=== PATIENT | male | born 1930 | race Caucasian/White ===

== ENCOUNTER → 2016-12-19 | Outpatient (CLI) | payer OTHER, MEDICARE ==
[~2016-12-19] MED LIST: AGG PO; ASCA500 PO; ASCO500T16 PO; ASPI81TA28 PO; ATOR-26 PO; CALC500C70 PO; CHRO400T PO; CLOP1TAB15 PO; CLTP PO; COEN1CAP46 PO; COEN200C PO; DOCU-94 PO; FINA5TAB PO; FURO-85 PO; IMDSR/30 PO; INSDGI SC; INSU1INJ7 SC; ISOS30TA3 PO; LANS15CA6 PO; LANS30CA12 PO; LEVO25TA5 PO; LIDO5DIS10 TD; LSX20 PO; MECL1TAB42 PO; METO1TAB69 PO; METO50TA16 PO; MULT-1093 PO; NITR0.2D16 TD; NITR0.4S76 PO; NTRGSL/4 UT; NVLGI SC; NVLGI/PEN SC; POTA1TAB94 PO; POTACAP PO; RNXER500 PO; TURM1CAP PO
[2016-12-19 16:52] LABS: BASO % 0.5 %; BASO ABS # 0.04 K/uL (0-0.2); COMPLETE YES; EOS % 7.2 %; HEMATOCRIT 38.8 % (42-52); IG% 0.3 %; LYMPH % 25.2 %; LYMPH ABS # 1.85 K/uL (1.2-3.4); MEAN CELL VOLUME 85.7 fL (80-100); MEAN CORPUSCULAR HEMOGLOBIN 28.9 pg (25-34); MEAN CORPUSCULAR HGB CONC 33.8 g/dl (32-36); MONO % 11.3 %; NEUT % 55.5 %; PLATELET COUNT 206 K/uL (130-400); RED BLOOD COUNT 4.53 M/uL (4.7-6.1); WHITE BLOOD COUNT 7.34 K/uL (4.8-10.8)
[2016-12-19 17:01] LABS: ALT/SGPT 33 U/L (12-78); AST/SGOT 31 U/L (15-37); BLOOD UREA NITROGEN 23 mg/dl (7-18); BUN/CREATININE RATIO 17.9 (10-20); CALCIUM 8.7 mg/dl (8.5-10.1); CARBON DIOXIDE 32 mmol/L (21-32); CHLORIDE 102 mmol/L (98-107); GLUCOSE 152 mg/dl (70-99); MAGNESIUM 2.1 mg/dl (1.8-2.4); POTASSIUM 4.3 mmol/L (3.5-5.1); SODIUM 140 mmol/L (136-145)
[2016-12-19 17:12] LABS: ALKALINE PHOSPHATASE 96 U/L (45-117)
== END | disposition home or self-care (01) ==
LOC: C.LABBC 14:24
PROVIDERS: ATTEND Physician Assistant
DX: R53.83 Other fatigue (principal)

== ENCOUNTER → 2017-02-11 | Outpatient (CLI) | payer OTHER, MEDICARE ==
[~2017-02-11] MED LIST changes: +ACET-1311 PO; +AMOX875T PO; +ASCO500C3 PO; +CALC200T PO; +CARB1SOL9 OT; +COEN1CAP7 PO; +HYDR-5688 PO; +IPRA1AER2 INH; +LANS30TA3 PO; +METO-478 PO; +METO100T44 PO; -METO1TAB69 PO; +MULTCHW PO; +NITR0.1S PO; +NITR0.2D16 TOP; +NITR0.4S74 UT; -NITR0.4S76 PO; +NVLGIPEN SC; +POTA1TAB PO; +PRS5 PO; +QUET1TAB30 PO; +SENN-91 PO
--- NOTE | 2017-02-14 04:03 | POLYSOMNOGRAPH REPORT ---
CLINICAL DATA: An 86-year-old male with BMI of 25.[address] Joseph Felton with a history of fatigue and witnessed apneic episodes at night. On the evening of 02/11/2017, a home sleep apnea test was performed using a [employer] type 3 monitor. RECORDING RESULTS: Total recording time was 10 hours. The patient's estimated sleep time and patient monitoring time was 8 hours. RESPIRATORY DATA: Severe sleep apnea was documented. The RACQUEL was 31.9. There were 20 obstructive, 121 mixed, and 85 central apneic episodes. There were 29 hypopneic episodes. The longest respiratory event was 59 seconds. OXIMETRY DATA: Severe hypoxemia was seen. Oxygen kervin was 76%. Mean saturation was 93%. Time below 89% was 68 minutes. HEART RATE DATA: Heart rates ranged from 57-69 beats per minute. SNORING DATA: Snoring was recorded immediately throughout the night. IMPRESSION: Severe sleep apnea/hypopnea with a respiratory event index of 31.9 with nocturnal hypoxemia. RECOMMENDATIONS: The patient may benefit from a repeat sleep study with CPAP or sleep medicine consultation. Clinical correlation is needed. SABINAD
== END | disposition home or self-care (01) ==
LOC: C.NEUR 09:20
PROVIDERS: ATTEND Internal Medicine
DX: G47.30 Sleep apnea, unspecified (principal); R09.02 Hypoxemia

== ENCOUNTER → 2017-02-18 | Outpatient (CLI) | payer OTHER, MEDICARE | END | disposition home or self-care (01) | LOC: C.LABBC 10:55 | PROVIDERS: ATTEND Internal Medicine | DX: E03.9 Hypothyroidism, unspecified (principal) ==

== ENCOUNTER → 2017-02-25 | Outpatient (CLI) | payer OTHER, MEDICARE ==
[~2017-02-25] VITALS: Ht 170.2 cm; Wt 76.7 kg
[2017-02-25 09:37] VITALS: BP 118/70; PULSE 76; Ht 170.2 cm; Wt 76.7 kg
== END | disposition home or self-care (01) ==
LOC: C.NEUR 08:55
PROVIDERS: ATTEND Internal Medicine Pulmonary Disease
DX: G47.30 Sleep apnea, unspecified (principal)

== ENCOUNTER → 2017-03-06 | Outpatient (CLI) | payer OTHER, MEDICARE ==
[2017-03-06 10:29] LABS: BASO % 0.5 %; BASO ABS # 0.04 K/uL (0-0.2); COMPLETE YES; HEMATOCRIT 38.6 % (42-52); IG% 0.1 %; LYMPH % 18.7 %; LYMPH ABS # 1.44 K/uL (1.2-3.4); MEAN CELL VOLUME 83.2 fL (80-100); MEAN CORPUSCULAR HEMOGLOBIN 27.4 pg (25-34); MEAN CORPUSCULAR HGB CONC 32.9 g/dl (32-36); MEAN PLATELET VOLUME 10.6 fL (7.4-10.4); MONO % 8.8 %; NEUT % 67.9 %; PLATELET COUNT 214 K/uL (130-400); RED BLOOD COUNT 4.64 M/uL (4.7-6.1)
[2017-03-06 14:14] LABS: ALB/GLOB RATIO 0.9 (0.9-2); ALKALINE PHOSPHATASE 100 U/L (45-117); ALT/SGPT 25 U/L (12-78); AST/SGOT 24 U/L (15-37); BLOOD UREA NITROGEN 17 mg/dl (7-18); BUN/CREATININE RATIO 13.9 (10-20); CALCIUM 8.9 mg/dl (8.5-10.1); CARBON DIOXIDE 27 mmol/L (21-32); CHLORIDE 106 mmol/L (98-107); CHOLESTEROL 90 mg/dl (0-200); CHOLESTEROL/HDL RATIO 2.1; GLUCOSE 167 mg/dl (70-99); HDL CHOLESTEROL 42 mg/dl; POTASSIUM 3.9 mmol/L (3.5-5.1); SODIUM 140 mmol/L (136-145)
[2017-03-06 14:16] LABS: LDL CHOLESTEROL CALCULATED 35 mg/dl; TRIGLYCERIDES 65 mg/dl (0-150); VERY LOW DENSITY LIPOPROT CALC 13 mg/dl
== END ==
LOC: C.LABBC 09:05
PROVIDERS: ATTEND Internal Medicine Cardiovascular Disease
DX: I25.10 Atherosclerotic heart disease of native coronary artery without angina pectoris (principal); N18.9 Chronic kidney disease, unspecified; I20.9 Angina pectoris, unspecified; R42 Dizziness and giddiness

== ENCOUNTER 2017-04-24 11:14 | Observation (INO) | payer OTHER, MEDICARE ==
[~2017-04-24] VITALS: Ht 172.7 cm; Wt 77.9 kg
[~2017-04-24 11:14] MED LIST changes: -ACET-1311 PO; -AMOX875T PO; -ASCO500C3 PO; -ASCO500T16 PO; -ASPI81TA28 PO; -CALC200T PO; -CALC500C70 PO; -CARB1SOL9 OT; -COEN1CAP7 PO; -COEN200C PO; -DOCU-94 PO; -FINA5TAB PO; -FURO-85 PO; -HYDR-5688 PO; -IMDSR/30 PO; -INSDGI SC; -IPRA1AER2 INH; -LANS30CA12 PO; -LANS30TA3 PO; -LEVO25TA5 PO; -MECL1TAB42 PO; -METO-478 PO; -METO100T44 PO; -MULT-1093 PO; -MULTCHW PO; -NITR0.1S PO; -NITR0.2D16 TD; -NITR0.2D16 TOP; -NITR0.4S74 UT; -NVLGI/PEN SC; -NVLGIPEN SC; -POTA1TAB PO; -POTACAP PO; -PRS5 PO; -QUET1TAB30 PO; -RNXER500 PO; -SENN-91 PO
[2017-04-24 12:19] LABS: BASO % 0.4 %; BASO ABS # 0.03 K/uL (0-0.2); COMPLETE YES; EOS % 2.2 %; HEMATOCRIT 36.9 % (42-52); IG% 0.3 %; LYMPH % 16.9 %; LYMPH ABS # 1.29 K/uL (1.2-3.4); MEAN CELL VOLUME 82.6 fL (80-100); MEAN CORPUSCULAR HEMOGLOBIN 27.5 pg (25-34); MEAN CORPUSCULAR HGB CONC 33.3 g/dl (32-36); MEAN PLATELET VOLUME 10.2 fL (7.4-10.4); MONO % 8.5 %; NEUT % 71.7 %; PLATELET COUNT 216 K/uL (130-400); RED BLOOD COUNT 4.47 M/uL (4.7-6.1); WHITE BLOOD COUNT 7.65 K/uL (4.8-10.8)
--- NOTE | 2017-04-24 12:21 | DIAGNOSTIC IMAGING REPORT ---
CHEST ONE VIEW PORTABLE HISTORY:86 yearsMaleCHEST PAIN COMPARISON: Chest radiograph 05/15/2016 TECHNIQUE: Portable upright AP view of the chest. FINDINGS: Cardiac silhouette is again mildly enlarged. There is atherosclerosis of the aorta. Prior median sternotomy. There is no pneumothorax or large pleural effusion. Subsegmental reticular opacities of the bilateral lung bases appear unchanged. Mild reticulation throughout the remainder of the lung conteh also appears unchanged. The bones are grossly intact. IMPRESSION: 1. Mild cardiomegaly with unchanged pattern of background mild reticulation, notably within the left greater than right lung bases appears unchanged from February 13, 2016 suggesting chronic interstitial changes with possible superimposed mild pulmonary edema also considered. 2. No new airspace consolidation to suggest pneumonia. The above report was generated using voice recognition software. It may contain grammatical, syntax or spelling errors. Electronically signed by: Walter Ang M.D. 04/24/2017 12:19 PM Dictated Date/Time: 04/24/2017 12:17 PM
[2017-04-24 12:40] LABS: BUN/CREATININE RATIO 12.3 (10-20); CALCIUM 8.9 mg/dl (8.5-10.1); CREATININE 1.3 mg/dl (0.60-1.40)
[2017-04-24 12:45] LABS: CKMB/CK RATIO 1.6 (0-3.0)
[2017-04-24] MEDS ORDERED: FURO-85 PO (13:21)
[2017-04-24] MEDS ORDERED: NVLGI/PEN SC (13:21)
[2017-04-24] MEDS ORDERED: CLOP1TAB15 PO (13:21)
[2017-04-24] MEDS ORDERED: IMDSR/30 PO (13:21)
[2017-04-24] MEDS ORDERED: NITR0.4S76 PO (13:21)
[2017-04-24] MEDS ORDERED: LEVO25TA5 PO (13:21)
[2017-04-24] MEDS ORDERED: ASPI81TA28 PO (13:21)
[2017-04-24] MEDS ORDERED: LANS30CA12 PO (13:21)
[2017-04-24] MEDS ORDERED: POTACAP PO (13:21)
[2017-04-24] MEDS ORDERED: INSDGI SC (13:21)
[2017-04-24] MEDS ORDERED: CHRO400T PO (13:21)
[2017-04-24] MEDS ORDERED: ASCO500T16 PO (13:21)
[2017-04-24] MEDS ORDERED: FINA5TAB PO (13:21)
[2017-04-24] MEDS ORDERED: COEN200C PO (13:21)
[2017-04-24] MEDS ORDERED: MULT-1093 PO (13:21)
[2017-04-24] MEDS ORDERED: METO1TAB69 PO (13:21)
[2017-04-24] MEDS ORDERED: MECL1TAB42 PO (13:21)
[2017-04-24] MEDS ORDERED: DOCU-94 PO (13:21)
[2017-04-24] MEDS ORDERED: ATOR-26 PO (13:21)
[2017-04-24] MEDS ORDERED: CALC500C70 PO (13:21)
[2017-04-24 14:41] VITALS: BP 156/85; PULSE 68; TEMP 36.7; O2SAT 98; Ht 172.7 cm; Wt 77.9 kg
[2017-04-24] MEDS ORDERED: GLUCOSE 10 TABS/TUBE PO PRN (14:45)
[2017-04-24] MEDS ORDERED: DEXTROSE 50% 50 ML SYR IV PRN (14:45)
[2017-04-24] MEDS ORDERED: GLUCOSE 40% GEL 15 GM TUBE PO PRN (14:45)
[2017-04-24] MEDS ORDERED: ALUMINUM/MAGNESIUM/SIMETH (MAALOX MAX) 30 ML UDC PO PRN (14:45)
[2017-04-24] MEDS ORDERED: ACETAMINOPHEN 325 MG TAB PO PRN (14:45)
[2017-04-24] MEDS ORDERED: POLYETHYLENE (MIRALAX) 17 GM PACK PO PRN (14:45)
[2017-04-24] MEDS ORDERED: NITROGLYCERIN 0.4 MG SL PER TAB CHARGE SL PRN (14:45)
[2017-04-24] MEDS ORDERED: ONDANSETRON INJ 2 MG/ML 2 ML VIAL IV PRN (14:45)
[2017-04-24] MEDS ORDERED: MAGNESIUM HYDROXIDE SUSP 30 ML UDC PO PRN (14:45)
--- NOTE | 2017-04-24 14:50 | History and Physical ---
History & Physical Date & Time of Service: Apr 24, 2017 at 14:46 Chief Complaint: Chest Pain Primary Care Physician: Joseph Felton M.D. History of Present Illness Source: patient, family Mr. 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 He reports that he has had progressive anginal CP over the years requiring more frequent use of his nitroglycerin spray. He reports normally his CP comes on with exertion and resolves with 1 spray. Approx. one week ago he did have an episode with exertion that did not jr until 3 sprays of NTG. Last night his CP changed as it came on with rest and is located in the L chest, which he describes as tight in nature. He took 3-4 sprays of NTG last night and didn't take the pain completely away but did resolve in approx.1 hour. He states he feels more fatigued with this episode than he normally dose with his previous anginal symptoms. Currently he states he is CP free and he denies having any CP this morning and came in for evaluation of the symptoms from last night. During this CP he had associated SOB, throat pain, and teeth sensitivity on the R side. He was at his PCP office yesterday and reports consideration for nighttime O2 use for obstructive and central sleep apnea since he cannot tolerate CPAP but this has not been instituted. Patient does complain of chronic lightheadedness/ dizziness which is unchanged. He denies fever/chills, current CP, current SOB, abdominal pain, N/V, diaphoresis, dysuria, constipation/diarrhea, melena/ hematochezia. Past Medical/Surgical History Medical Problems: (1) Diabetes Status: Chronic (2) Heart disease Status: Chronic (3) Hypertension Status: Chronic Surgical Problems: (1) History of back surgery Status: Resolved (2) History of open heart surgery Status: Resolved Family History Diabetes mellitus Heart disease Hypertension Social History Smoking Status: Former Smoker Smokeless Tobacco Use: No Alcohol Use: none Drug Use: none Marital Status: Housing status: lives with significant other Occupational Status: retired Immunizations History of Tetanus Vaccine?: Unknown History of Pneumococcal: Yes History of Hepatitis B Vaccine: No Multi-Drug Resistant Organisms History of MDRO: No Allergies Coded Allergies: Iodine (Verified Allergy, Mild, 04/24/17) Iodinated Diagnostic Agents (Verified Allergy, Unknown, UNKNOWN, 04/24/17) Home Medications Scheduled Ascorbic Acid (Ascorbic Acid), 500 MG PO QAM Aspirin (Aspirin Ec), 81 MG PO HS Atorvastatin (Lipitor), 80 MG PO HS Calcium/Vitamin D (Os-Bethel 500 Plus D), 1 TAB PO BID Chromium Picolinate (Chromium Picolinate), 1 TAB PO QAM Clopidogrel (Plavix), 75 MG PO QAM Coenzyme Q10 (Ubidecarenone) (Coenzyme Q-10), 1 TAB PO QAM Docusate Sodium (Colace), 1 CAP PO HS Finasteride (Proscar), 5 MG PO HS Furosemide (Lasix), 20 MG PO QAM Insulin Glargine (Lantus), 18-25 UNITS SC HS Isosorbide Mononitrate (Isosorbide Mononitrate ER), 1 TAB PO QAM Lansoprazole (Prevacid), 30 MG PO QAM Levothyroxine Sodium (Levothyroxine Sodium), 1 TAB PO HS Meclizine Hcl (Meclizine Hcl), 1 TAB PO TID Metoprolol Succ (Toprol Xl) (Toprol-Xl ), 100 MG PO BID Multiple Vitamins W/ Minerals (Centrum Silver 50+Men), 1 TAB PO QAM Potassium Gluconate (K-99), 1 TAB PO QAM Miscellaneous Medications Insulin Aspart (Novolog Flexpen), 1 DOSE SC Nitroglycerin (Nitroglycerin Lingual), 1 SPRAY PO Review of Systems Constitutional: + fatigue, No fever, No chills Eyes: No worsening of vision ENT: No nasal symptoms, No sore throat, No trouble swallowing Respiratory: + shortness of breath (last night - resolved), No cough Cardiovascular: + chest pain (last night - currently resolved), No palpitations Abdomen: No pain, No nausea, No vomiting, No diarrhea, No constipation Genitourinary - Male: + urinary frequency, No dysuria Hematologic / Lymphatic: No abnormal bleeding/bruising, No clotting problems Physical Exam Vital Signs Date Time Temp Pulse Resp B/P (MAP) Pulse Ox O2 Delivery O2 Flow Rate FiO2 04/24/17 12:38 65 20 139/78 97 Nasal Cannula 2.0 04/24/17 12:24 Nasal Cannula 2.0 04/24/17 11:31 63 04/24/17 11:16 36.7 79 16 148/86 96 Room Air General Appearance: WD/WN, no apparent distress Head: normocephalic, atraumatic Eyes: sclerae normal ENT: hearing grossly normal Neck: supple, no JVD, trachea midline Respiratory/Chest: no respiratory distress, no accessory muscle use, + crackles (minimal in bases bilat) Cardiovascular: regular rate, rhythm, no gallop, + systolic murmur Abdomen/GI: normal bowel sounds, non tender, soft Back: no CVA tenderness, no muscle spasm, + pertinent finding (L back surgical incision well-healed and well-approximated) Extremities/Musculoskelatal: no calf tenderness, no pedal edema Neurologic/Psych: alert Skin: normal color, warm/dry Diagnostics Laboratory Results Results Past 24 Hours Test 04/24/17 11:40 04/24/17 11:49 Range/Units White Blood Count 7.65 4.8-10.8 K/uL Red Blood Count 4.47 4.7-6.1 M/uL Hemoglobin 12.3 14.0-18.0 g/dL Hematocrit 36.9 42-52 % Mean Corpuscular Volume 82.6 80-100 fL Mean Corpuscular Hemoglobin 27.5 25-34 pg Mean Corpuscular Hemoglobin Concent 33.3 32-36 g/dl Platelet Count 216 130-400 K/uL Mean Platelet Volume 10.2 7.4-10.4 fL Neutrophils (%) (Auto) 71.7 % Lymphocytes (%) (Auto) 16.9 % Monocytes (%) (Auto) 8.5 % Eosinophils (%) (Auto) 2.2 % Basophils (%) (Auto) 0.4 % Neutrophils # (Auto) 5.49 1.4-6.5 K/uL Lymphocytes # (Auto) 1.29 1.2-3.4 K/uL Monocytes # (Auto) 0.65 0.11-0.59 K/uL Eosinophils # (Auto) 0.17 0-0.5 K/uL Basophils # (Auto) 0.03 0-0.2 K/uL RDW Standard Deviation 46.9 36.4-46.3 fL RDW Coefficient of Variation 15.5 11.5-14.5 % Immature Granulocyte % (Auto) 0.3 % Immature Granulocyte # (Auto) 0.02 0.00-0.02 K/uL Sodium Level 135 136-145 mmol/L Potassium Level 4.0 3.5-5.1 mmol/L Chloride Level 101 98-107 mmol/L Carbon Dioxide Level 25 21-32 mmol/L Anion Gap 9.0 3-11 mmol/L Blood Urea Nitrogen 16 7-18 mg/dl Creatinine 1.30 0.60-1.40 mg/dl Est Creatinine Clear Calc Drug Dose 38.0 ml/min Estimated GFR () 56.5 Estimated GFR (Non- 48.7 BUN/Creatinine Ratio 12.3 10-20 Random Glucose 178 70-99 mg/dl Calcium Level 8.9 8.5-10.1 mg/dl Total Bilirubin 0.6 0.2-1 mg/dl Direct Bilirubin 0.2 0-0.2 mg/dl Aspartate Amino Transf (AST/SGOT) 31 15-37 U/L Alanine Aminotransferase (ALT/SGPT) 30 12-78 U/L Alkaline Phosphatase 99 45-117 U/L Total Creatine Kinase 195 39-308 U/L Creatine Kinase MB 3.1 0.5-3.6 ng/ml Creatine Kinase MB Ratio 1.6 0-3.0 Total Protein 7.0 6.4-8.2 gm/dl Albumin 3.3 3.4-5.0 gm/dl Lipase 96 73-393 U/L Bedside Troponin I 0.030 0-0.045 ng/ml Diagnostic Radiology CHEST ONE VIEW PORTABLE FINDINGS: Cardiac silhouette is again mildly enlarged. There is atherosclerosis of the aorta. Prior median sternotomy. There is no pneumothorax or large pleural effusion. Subsegmental reticular opacities of the bilateral lung bases appear unchanged. Mild reticulation throughout the remainder of the lung conteh also appears unchanged. The bones are grossly intact. IMPRESSION: 1. Mild cardiomegaly with unchanged pattern of background mild reticulation, notably within the left greater than right lung bases appears unchanged from February 13, 2016 suggesting chronic interstitial changes with possible superimposed mild pulmonary edema also considered. 2. No new airspace consolidation to suggest pneumonia. EKG Sinus rhythm with 1st degree A-V block Left axis deviation Left ventricular hypertrophy with QRS widening and repolarization abnormality Lateral infarct (cited on or before 05-OCT-2004) Inferior infarct (cited on or before 05-OCT-2004) Abnormal ECG When compared with ECG of 15-MAY-2016 11:18, T wave amplitude has increased in Anterior leads Impression Assessment and Plan Mr. 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 Unstable Angina with CAD with KS S/P CABG x 5 and Stents: - Significant CAD with multiple interventions at [facility] - Initial trop detectable but negative and will obtain serial enzymes - ASA 81 mg daily and Plavix 75 mg daily - Hold Imdur and use topical NTG - Metoprolol 100 mg BID - Consult cardiology - appreciate recommendations for intervention...stress testing vs cath? Chronic Systolic and Diastolic CHF without Exacerbation: - Echo (2016) - EF 40% with diastolic dysfunction; global hypokinesis; borderline dilated L ventricle - Lasix 20 mg daily Obstructive and Central Sleep Apnea: - Evaluated by PCP yesterday and patient cannot stand CPAP and is considering nocturnal O2 - hasn't been set up yet IDDM: A1c 7.7 - Follows with Dr. Guzman - Lantus 16 units and SSI Hypothyroidism: - Levothyroxine 25 mcg CVA x 2 - tPA given in 2016: - ASA and Plavix as above DVT Prophylaxis: OMAIRA/SCDs Code Status: FULL RESUSCITATION Resident Physician Supervision Note: I was present with Fe PERES during the history and exam. I discussed the case with the PA and agree with the findings and plan as documented in the note. Any exceptions or clarifications are listed here: 86 y/o M with documented severe CAD presenting essentially with unstable angina - has had increasingly frequent CP which has not fully responded to NTG OE AAO x 3 S1,2 R + systolic murmur Crackles R lung base NT, ND, BS+ No CCE P: Placed on telemetry Pt has had extensive w/u and CAD is well documented - utility of additional testing is not clear so that we will consult cardiology for additional recommendations - May benefit from Ranexa Placed on SS for DM CHF - mild systolic - euvolemic on admission - cont Lasix Cont Synthroid Documented By: Gideon Neumann Level of Care Telemetry Resuscitation Status FULL RESUSCITATION VTE Prophylaxis VTE Risk Assessment Done? Y/N: Yes Risk Level: Moderate Given or contraindicated: T.E.D. Stockings, SCD's
--- NOTE | 2017-04-24 15:12 | EMERGENCY ROOM VISIT NOTE ---
History Report prepared by Carlos Enrique: Bandar Guerrero Under the Supervision of: Dr. Justice Ramirez M.D. First contact with patient: 11:37 Chief Complaint: CHEST PAIN Stated Complaint: CHEST PAIN Nursing Triage Summary: pt to the ED with chest pain last night took 4 sprays of nitro which relieved it and then decided to come in today no complaints of chest pain now History of Present Illness The patient is a 86 year old male who presents to the Emergency Room with complaints of intermittent chest pain beginning last night. He states that his pain resolved with 3-4 sprays of nitroglycerin last night, but then returned this morning. This is the first time he has required more than 1 spray of nitroglycerin to improve his pain. The patient states that he waited to come to the ED because he wanted to sleep first. He states that his chest still feels "tight" with deep breathing. He states that he does not currently feel short of breath, but states that he did previously. The patient has a history of TX, and states that his current pain feels similar to his previous TX. He has a history of multiple cardiac bypasses. He states that he has been using nitroglycerin more frequently with time. Pt denies LOC, headache, fevers, chills, diaphoresis , visual changes, neck pain, tearing pain radiating to the back, personal history or family history of aneurysm or pulmonary embolism, uncontrolled hypertension, leg swelling, coagulation abnormalities, prolonged travel, recent surgery or immobilization, nausea, vomiting, abdominal pain, melena, hematochezia, urinary symptoms, numbness, weakness, lymphadenopathy, rash, or other complaints. Source of History: patient Onset: Last night Position: chest Timing: intermittent Modifying Factors (Worsening): breathing (deep) Modifying Factors (Relieving): other (Nitroglycerin) Associated Symptoms: + SOB (resolved) Review of Systems See HPI for pertinent positives and negatives. A total of ten systems were reviewed and were otherwise negative. 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 Surgical Problems: (1) History of back surgery (2) History of open heart surgery Family History Diabetes mellitus Heart disease Hypertension Social History Smoking Status: Former Smoker Drug Use: none Marital Status: Housing Status: lives with significant other Occupation Status: retired Current/Historical Medications Scheduled Ascorbic Acid (Ascorbic Acid), 500 MG PO QAM Aspirin (Aspirin Ec), 81 MG PO HS Atorvastatin (Lipitor), 80 MG PO HS Calcium/Vitamin D (Os-Bethel 500 Plus D), 1 TAB PO BID Chromium Picolinate (Chromium Picolinate), 1 TAB PO QAM Clopidogrel (Plavix), 75 MG PO QAM Coenzyme Q10 (Ubidecarenone) (Coenzyme Q-10), 1 TAB PO QAM Docusate Sodium (Colace), 1 CAP PO HS Finasteride (Proscar), 5 MG PO HS Furosemide (Lasix), 20 MG PO QAM Insulin Glargine (Lantus), 18-25 UNITS SC HS Isosorbide Mononitrate (Isosorbide Mononitrate ER), 1 TAB PO QAM Lansoprazole (Prevacid), 30 MG PO QAM Levothyroxine Sodium (Levothyroxine Sodium), 1 TAB PO HS Meclizine Hcl (Meclizine Hcl), 1 TAB PO TID Metoprolol Succ (Toprol Xl) (Toprol-Xl ), 100 MG PO BID Multiple Vitamins W/ Minerals (Centrum Silver 50+Men), 1 TAB PO QAM Potassium Gluconate (K-99), 1 TAB PO QAM Miscellaneous Medications Insulin Aspart (Novolog Flexpen), 1 DOSE SC Nitroglycerin (Nitroglycerin Lingual), 1 SPRAY PO Allergies Coded Allergies: Iodine (Verified Allergy, Mild, 04/24/17) Iodinated Diagnostic Agents (Verified Allergy, Unknown, UNKNOWN, 04/24/17) Physical Exam Vital Signs Date Time Temp Pulse Resp B/P (MAP) Pulse Ox O2 Delivery O2 Flow Rate FiO2 04/24/17 14:41 36.7 68 20 156/85 98 Nasal Cannula 2.0 04/24/17 14:40 69 20 156/85 98 04/24/17 12:38 65 20 139/78 97 Nasal Cannula 2.0 04/24/17 12:24 Nasal Cannula 2.0 04/24/17 11:31 63 04/24/17 11:16 36.7 79 16 148/86 96 Room Air Physical Exam GENERAL: Awake, alert, well-appearing, in no distress HENT: Normocephalic, atraumatic. Oropharynx unremarkable. EYES: Normal conjunctiva. Sclera non-icteric. NECK: Supple. No nuchal rigidity. FROM. No JVD. RESPIRATORY: Clear to auscultation. CARDIAC: Regular rate, normal rhythm. Extremities warm and well perfused. Pulses equal. ABDOMEN: Soft, non-distended. No tenderness to palpation. No rebound or guarding. No masses. RECTAL: Deferred. MUSCULOSKELETAL: Chest examination reveals no tenderness. The back is symmetrical on inspection without obvious abnormality. There is no CVA tenderness to palpation. No joint edema. LOWER EXTREMITIES: Calves are equal size bilaterally and non-tender. No edema. No discoloration. NEURO: Normal sensorium. No sensory or motor deficits noted. SKIN: No rash or jaundice noted. Medical Decision & Procedures ER Provider Diagnostic Interpretation: X-ray: Per my interpretation, radiologist review. CHEST ONE VIEW PORTABLE FINDINGS: Cardiac silhouette is again mildly enlarged. There is atherosclerosis of the aorta. Prior median sternotomy. There is no pneumothorax or large pleural effusion. Subsegmental reticular opacities of the bilateral lung bases appear unchanged. Mild reticulation throughout the remainder of the lung conteh also appears unchanged. The bones are grossly intact. IMPRESSION: 1. Mild cardiomegaly with unchanged pattern of background mild reticulation, notably within the left greater than right lung bases appears unchanged from February 13, 2016 suggesting chronic interstitial changes with possible superimposed mild pulmonary edema also considered. 2. No new airspace consolidation to suggest pneumonia. The above report was generated using voice recognition software. It may contain grammatical, syntax or spelling errors. Electronically signed by: Walter Ang M.D. 04/24/2017 12:19 PM Laboratory Results 04/24/17 11:40 Red Blood Count 4.47, Mean Corpuscular Volume 82.6, Mean Corpuscular Hemoglobin 27.5, Mean Corpuscular Hemoglobin Concent 33.3, Mean Platelet Volume 10.2, Neutrophils (%) (Auto) 71.7, Lymphocytes (%) (Auto) 16.9, Monocytes (%) (Auto) 8.5, Eosinophils (%) (Auto) 2.2, Basophils (%) (Auto) 0.4, Neutrophils # (Auto) 5.49, Lymphocytes # (Auto) 1.29, Monocytes # (Auto) 0.65, Eosinophils # (Auto) 0.17, Basophils # (Auto) 0.03 04/24/17 11:40 Test 04/24/17 11:40 04/24/17 11:49 White Blood Count 7.65 K/uL (4.8-10.8) Red Blood Count 4.47 M/uL (4.7-6.1) Hemoglobin 12.3 g/dL (14.0-18.0) Hematocrit 36.9 % (42-52) Mean Corpuscular Volume 82.6 fL (80-100) Mean Corpuscular Hemoglobin 27.5 pg (25-34) Mean Corpuscular Hemoglobin Concent 33.3 g/dl (32-36) Platelet Count 216 K/uL (130-400) Mean Platelet Volume 10.2 fL (7.4-10.4) Neutrophils (%) (Auto) 71.7 % Lymphocytes (%) (Auto) 16.9 % Monocytes (%) (Auto) 8.5 % Eosinophils (%) (Auto) 2.2 % Basophils (%) (Auto) 0.4 % Neutrophils # (Auto) 5.49 K/uL (1.4-6.5) Lymphocytes # (Auto) 1.29 K/uL (1.2-3.4) Monocytes # (Auto) 0.65 K/uL (0.11-0.59) Eosinophils # (Auto) 0.17 K/uL (0-0.5) Basophils # (Auto) 0.03 K/uL (0-0.2) RDW Standard Deviation 46.9 fL (36.4-46.3) RDW Coefficient of Variation 15.5 % (11.5-14.5) Immature Granulocyte % (Auto) 0.3 % Immature Granulocyte # (Auto) 0.02 K/uL (0.00-0.02) Anion Gap 9.0 mmol/L (3-11) Est Creatinine Clear Calc Drug Dose 38.0 ml/min Estimated GFR () 56.5 Estimated GFR (Non- 48.7 BUN/Creatinine Ratio 12.3 (10-20) Calcium Level 8.9 mg/dl (8.5-10.1) Total Bilirubin 0.6 mg/dl (0.2-1) Direct Bilirubin 0.2 mg/dl (0-0.2) Aspartate Amino Transf (AST/SGOT) 31 U/L (15-37) Alanine Aminotransferase (ALT/SGPT) 30 U/L (12-78) Alkaline Phosphatase 99 U/L (45-117) Total Creatine Kinase 195 U/L (39-308) Creatine Kinase MB 3.1 ng/ml (0.5-3.6) Creatine Kinase MB Ratio 1.6 (0-3.0) Total Protein 7.0 gm/dl (6.4-8.2) Albumin 3.3 gm/dl (3.4-5.0) Lipase 96 U/L (73-393) Bedside Troponin I 0.030 ng/ml (0-0.045) Laboratory results reviewed by me ECG Indication: chest pain Rate (beats per minute): 76 Rhythm: sinus rhythm Findings: 1st degree AV block, Q waves (inferior and lateral leads), other ( LAD. LVH with repolarization) Comparison ECG Date: May 15, 2016 Change: no significant change ED Course 1207: The patient was evaluated in room B9. A complete history and physical exam was performed. Medical Decision Triage Nursing notes reviewed. The patient's presentation and history were concerning for chest pain. Etiologies such as cardiac ischemia, aortic dissection, pulmonary embolism, pneumonia, pneumothorax, musculoskeletal, infections, gastrointestinal, as well as others were entertained. The patient was evaluated. He was pain-free. His CBC showed a mild anemia. Chemistry panel, troponin, LFTs, lipase were unremarkable. Chest x-ray revealed chronic changes. The patient was doing relatively well. He has had an escalating use of his nitroglycerin. I discussed the case with Dr. Parra of cardiology and he recommended a cardiac rule out. I did consult with the hospitalist service. The patient was evaluated in the Emergency Room for further management. Consults Time Called: [id number] Consulting Physician: Dr. Parra -Cardiology Returned Call: [phone] Discussed the patient's case. Dr. Parra recommends that the patient be admitted for further evaluation. Additional Consults: Time Called: 1350 Consulted Physician: Dr. Neumann -[facility] [place] Returned Call: [phone] Additional Comments: Discussed the patient's case. The patient will be evaluated for further treatment and disposition. Impression Primary Impression: Substernal chest pain Scribe Attestation The scribe's documentation has been prepared under my direction and personally reviewed by me in its entirety. I confirm that the note above accurately reflects all work, treatment, procedures, and medical decision making performed by me. Departure Information Dispostion Being Evaluated By Hospitalist Referrals Joseph Felton M.D. (PCP) Patient Instructions My [facility]
[2017-04-24] MEDS ORDERED: IV FLUIDS COMPLETED PRN (15:15)
[2017-04-24 16:13] VITALS: BP 146/85; PULSE 69; TEMP 36.8; O2SAT 96
[2017-04-24] MEDS: INSULIN ASPART 100 UNITS/ML 3 ML PEN SC SCH ×3 (16:15→21:39)
[2017-04-24] MEDS: NITROGLYCERIN OINT 2% 1GM PACKET EXT SCH ×2 (18:21→22:50)
[2017-04-24] MEDS ORDERED: NON-FORMULARY MEDICATION SCH (19:15)
--- NOTE | 2017-04-24 19:31 | Cardiology Consultation ---
Cardiology Consultation Date of Consultation: Apr 24, 2017. Requesting Physician: Dr. Neumann Attending Physician: Dr. Neumann Reason for Consultation: Unstable angina Pt evaluation today including: conversation w/ patient, physical exam, chart review, lab review, review of studies, review of inpatient medication list History of Present Illness Mr. Pabon is a pleasant 86-year-old gentleman with a history significant for CAD s/p CABG x5 in 1997 with repeat bypass in 1995, non severe aortic stenosis, chronic angina, stroke, chronic kidney disease, ischemic cardiomyopathy, sleep apnea, dyslipidemia, hypertension, and type 2 diabetes. He presented to the emergency department today with worsening chest discomfort/ angina. He typically follows with Dr. Gupta for his cardiology care. He has had chronic stable anginal symptoms and typically takes nitroglycerin spray prior to exerting himself. For the past few months he has had progressively worsening and more frequent symptoms. He describes the pain as a right or left-sided, and sometimes bilateral chest discomfort, described as a tightness. It typically does not radiate. It occurs with exertion and usually resolves with nitroglycerin. It has been taking more sprays of nitroglycerin for his symptoms to completely resolved. Last night he took 3 or 4 sprays and the pain did not completely resolve until approximately 1 hour later. He has even had some symptoms at rest recently with symptoms lasting 30-60 minutes. He has not had any further symptoms today with his last episode being last evening at approximately 2300 p.m. there is no radiation of the pain and no diaphoresis. He initially denied shortness of breath with the symptoms but then stated that his breathing did become a bit more difficult with his chest discomfort. He states that these symptoms are typical for his angina. He otherwise denies melena, hematochezia, syncope, near-syncope, palpitations, orthopnea, shortness of breath at rest, or other bleeding. He denies any recent fevers, chills, nausea, vomiting. He takes isosorbide mononitrate 30 mg [address] to [address] Gupta's most recent note, he did not tolerate higher doses of isosorbide. He also did not tie low rate higher doses of amlodipine due to increased lightheadedness. He was intolerant to Ranexa due to increased fatigue and he also did not tolerate higher doses of metoprolol due to fatigue. He has had the following studies/procedures: 1. CABG x5 1997: HOLDER to LAD; SVG to RCA; SVG to circumflex; SVG to LAD diagonal/diagonal bridge graft. 2. Redo CABG 1995: SVG from left subclavian to distal and of prior graft to circumflex marginal. 3. Cardiac catheterization 2006 at [facility]: Patent vein graft to OM2. Patent HOLDER to mid LAD. LM CA 90%. Mid LAD 100%. Distal LAD 70%. D1 60%. Proximal RCA 100%. Collateral flow from LAD to RCA. Proximal circumflex 70%. OM2 and OM3 100%. PCI was performed from a LM CA to ostial left circumflex. 4. Echo 03/19/2016: EF 40%. Inferior and inferoseptal akinesis. Basal anteroseptal hypokinesis. Mild MR. Mild aortic stenosis. Review of systems: As above. Review of systems otherwise negative/ unremarkable. Past Medical/Surgical History 1. Actinic keratosis (L57.0) 2. Alteration in tactile sense (R20.9) 3. Angina pectoris (I20.9) 4. Apnea (R06.81) 5. Arteriosclerotic coronary artery disease (I25.10) 6. Benign prostatic hypertrophy (N40.0) 7. History of CABG 8. Calcific aortic stenosis (I35.0) 9. Cardiomyopathy (I42.9) 10. Cath Stent Placement 11. Cerebral infarction, unspecified (I63.9) 12. Cervical facet syndrome (M12.88) 13. Cervical pain (neck) (M54.2) 14. Chronic back pain (M54.9,G89.29) 15. Chronic kidney disease (N18.9) 16. Chronic pain syndrome (G89.4) 17. Degeneration of intervertebral disc 18. Diabetic nephropathy (E11.21) 19. Diabetic peripheral neuropathy (E11.42) 20. Dizziness (R42) 21. Dyslipidemia (E78.5) 22. Enlarged prostate with lower urinary tract symptoms (LUTS) (N40.1) 23. Esophageal reflux (K21.9) 24. Fatigue (R53.83) 25. Gait disturbance (R26.9) 26. Headache (R51) 27. History of basal cell carcinoma (Z85.828) 28. Hypertension (I10) 29. Hypothyroidism (E03.9) 30. Inhibited sexual excitement (F52.8) 31. Memory loss or impairment (R41.3) 32. Neoplasm of uncertain behavior of skin (D48.5) 33. Past myocardial infarction (I25.2) 34. Severe sleep apnea (G47.30) 35. Type 2 diabetes mellitus with neurologic complication, with long-term current use of insulin (E11.49,Z79.4) Surgical History 1. History of CABG 2. History of Cataract Surgery 3. History of Cath Stent Placement 4. Cath Stent Placement 5. History of Chemosurgery (Mohs Micrographic Technique) 6. History of Complete Colonoscopy 7. History of Hemorrhoidectomy 8. History of Inguinal Hernia Repair 9. History of Laminectomy Lumbar 10. History of Pilonidal Cyst Resection 11. History of Tonsillectomy With Adenoidectomy Family History Diabetes mellitus Heart disease Hypertension Social History Smoking Status: Former Smoker History of Alcohol Use: No Quit smoking many years ago. Rare alcohol. and lives with his . Two children. Currently alone in his hospital room. All Other Systems: Reviewed and Negative Allergies Coded Allergies: Iodine (Verified Allergy, Mild, 04/24/17) Iodinated Diagnostic Agents (Verified Allergy, Unknown, UNKNOWN, 04/24/17) Medications Current Inpatient Medications Medications (Trade) Dose Ordered Sig/Zachariah Route Start Time Stop Time Status Last Admin Dose Admin Acetaminophen (Tylenol Tab) 650 mg Q4H PRN PO 04/24/17 14:45 05/24/17 14:44 Al Hydrox/Mg Hydrox/Simethicone (Maalox Max Susp) 15 ml Q4H PRN PO 04/24/17 14:45 05/24/17 14:44 Magnesium Hydroxide (Milk Of Magnesia Susp) 30 ml Q12H PRN PO 04/24/17 14:45 05/24/17 14:44 Ondansetron HCl (Zofran Inj) 4 mg Q6H PRN IV 04/24/17 14:45 05/24/17 14:44 Nitroglycerin (Nitrostat Tab) 0.4 mg UD PRN SL 04/24/17 14:45 05/24/17 14:44 Polyethylene (Miralax Powder Packet) 17 gm DAILY PRN PO 04/24/17 14:45 05/24/17 14:44 Ascorbic Acid (Vitamin C Tab) 500 mg QAM PO 04/25/17 09:00 05/25/17 08:59 Aspirin (Ecotrin Tab) 81 mg HS PO 04/24/17 21:00 05/24/17 20:59 Atorvastatin Calcium (Lipitor Tab) 80 mg HS PO 04/24/17 21:00 05/24/17 20:59 Calcium/Vitamin D (Caltrate Plus Tab) 1 tab BID PO 04/24/17 21:00 05/24/17 20:59 Clopidogrel Bisulfate (plAVix TAB) 75 mg QAM PO 04/25/17 09:00 05/25/17 08:59 Docusate Sodium (coLACE CAP) 100 mg HS PO 04/24/17 21:00 05/24/17 20:59 Finasteride (Proscar Tab) 5 mg HS PO 04/24/17 21:00 05/24/17 20:59 Furosemide (Lasix Tab) 20 mg QAM PO 04/25/17 09:00 05/25/17 08:59 Insulin Glargine (Lantus Solostar Pen) 16 units HS SC 04/24/17 21:00 05/24/17 20:59 Levothyroxine Sodium (Synthroid Tab) 25 mcg HS PO 04/24/17 21:00 05/24/17 20:59 Meclizine HCl (Antivert Tab) 25 mg TID PO 04/24/17 21:00 05/24/17 20:59 Metoprolol Succinate (Toprol Xl Tab) 100 mg BID PO 04/24/17 21:00 05/24/17 20:59 Multivitamins/ Minerals (Multivitamin W/ Minerals Tab) 1 tab QAM PO 04/25/17 09:00 05/25/17 08:59 Pantoprazole Sodium (Protonix Tab) 40 mg QAM PO 04/25/17 09:00 05/25/17 08:59 Insulin Aspart (novoLOG ASPART) SLIDING SCALE If C... ACHS SC 04/24/17 16:15 05/24/17 16:14 Glucose (Glucose 40% Gel) 15-30 GRAMS 15 GRAMS... UD PRN PO 04/24/17 14:45 05/24/17 14:44 Glucose (Glucose Chew Tab) 4-8 Tablets 4 Tabl... UD PRN PO 04/24/17 14:45 05/24/17 14:44 Dextrose (Dextrose 50% 50ML Syringe) 25-50ML OF 50% DW IV FOR... UD PRN IV 04/24/17 14:45 05/24/17 14:44 Miscellaneous (Iv Fluids Completed) 1 ea PRN PRN N/A 04/24/17 15:15 04/24/18 15:14 Nitroglycerin (Nitroglycerin 2% Oint) 1 inch Q6H EXT 04/24/17 16:30 05/24/17 16:29 04/24/17 18:21 1 INCH Non-Formulary Medication 1 ea UD N/A 04/24/17 19:15 05/24/17 19:14 UNV Physical Exam Vital Signs Past 12 Hours Date Time Temp Pulse Resp B/P (MAP) Pulse Ox O2 Delivery O2 Flow Rate FiO2 04/24/17 16:13 36.8 69 20 146/85 (105) 96 Room Air 04/24/17 16:13 96 Room Air 04/24/17 15:28 69 18 150/84 98 Nasal Cannula 2.0 04/24/17 14:41 36.7 68 20 156/85 98 Nasal Cannula 2.0 04/24/17 14:40 69 20 156/85 98 04/24/17 12:38 65 20 139/78 97 Nasal Cannula 2.0 04/24/17 12:24 Nasal Cannula 2.0 04/24/17 11:31 63 04/24/17 11:16 36.7 79 16 148/86 96 Room Air Gen.: No acute distress. Alert and oriented. HEENT: Anicteric sclera. Neck: No JVD. No bruits. Normal carotid upstrokes bilaterally. Cardiac: PMI was not palpable. No ventricular heave. Regular rate and rhythm. Normal S1-S2. 2/6 early peaking systolic ejection murmur heard best at right upper sternal border. No rubs or gallops. Pulmonary: Bibasilar crackles, otherwise clear. Abdomen: Soft, nontender, nondistended, with normoactive bowel sounds. No bruits noted. Extremities: 2+ radial pulses bilaterally. 2+ posterior tibialis pulses bilaterally. No edema or cyanosis. Psychiatric: Affect appears appropriate. Chest: Chest pain noted in HPI is not reproducible on exam. Data Laboratory Results: Last 24 Hours Test 04/24/17 11:40 04/24/17 11:49 04/24/17 16:16 04/24/17 17:40 White Blood Count 7.65 K/uL Red Blood Count 4.47 M/uL Hemoglobin 12.3 g/dL Hematocrit 36.9 % Mean Corpuscular Volume 82.6 fL Mean Corpuscular Hemoglobin 27.5 pg Mean Corpuscular Hemoglobin Concent 33.3 g/dl Platelet Count 216 K/uL Mean Platelet Volume 10.2 fL Neutrophils (%) (Auto) 71.7 % Lymphocytes (%) (Auto) 16.9 % Monocytes (%) (Auto) 8.5 % Eosinophils (%) (Auto) 2.2 % Basophils (%) (Auto) 0.4 % Neutrophils # (Auto) 5.49 K/uL Lymphocytes # (Auto) 1.29 K/uL Monocytes # (Auto) 0.65 K/uL Eosinophils # (Auto) 0.17 K/uL Basophils # (Auto) 0.03 K/uL RDW Standard Deviation 46.9 fL RDW Coefficient of Variation 15.5 % Immature Granulocyte % (Auto) 0.3 % Immature Granulocyte # (Auto) 0.02 K/uL Sodium Level 135 mmol/L Potassium Level 4.0 mmol/L Chloride Level 101 mmol/L Carbon Dioxide Level 25 mmol/L Anion Gap 9.0 mmol/L Blood Urea Nitrogen 16 mg/dl Creatinine 1.30 mg/dl Est Creatinine Clear Calc Drug Dose 38.0 ml/min Estimated GFR () 56.5 Estimated GFR (Non- 48.7 BUN/Creatinine Ratio 12.3 Random Glucose 178 mg/dl Calcium Level 8.9 mg/dl Total Bilirubin 0.6 mg/dl Direct Bilirubin 0.2 mg/dl Aspartate Amino Transf (AST/SGOT) 31 U/L Alanine Aminotransferase (ALT/SGPT) 30 U/L Alkaline Phosphatase 99 U/L Total Creatine Kinase 195 U/L Creatine Kinase MB 3.1 ng/ml Creatine Kinase MB Ratio 1.6 Total Protein 7.0 gm/dl Albumin 3.3 gm/dl Lipase 96 U/L Bedside Troponin I 0.030 ng/ml Bedside Glucose 92 mg/dl Troponin I 0.063 ng/ml ECG personally reviewed. ECG 04/24/2017: Sinus rhythm with first-degree AV block. Heart rate 76 bpm. LVH. IVCD. Anterior infarct. Inferior infarct. Similar compared to prior ECG on 05/15/16. Echocardiogram report reviewed as noted above. Chest x-ray 04/24/2017: Radiology has interpreted this as chronic interstitial changes with possible superimposed mild pulmonary edema at the lung bases. No new airspace consolidation. Assessment & Plan 1. Unstable angina: He has had progressively worsening anginal symptoms and sum rest symptoms. This is typical of his prior angina. His second troponin level, although not diagnostic of myocardial infarction, is slightly elevated. Isosorbide mononitrate has been discontinued. He currently has nitroglycerin paste ordered. He apparently did not tolerate Ranexa, amlodipine, or higher doses of isosorbide mononitrate in the past. Ranexa caused fatigue while increased nitrate and amlodipine cause lightheadedness. It may be reasonable to retrial Ranexa given his worsening symptoms. If he does well on the nitroglycerin paste, however, could try a nitroglycerin patch upon discharge to see if this helps his symptoms. He has been taking nitroglycerin p.r.n. prior to exertion to help prevent symptoms, however this has not been as useful recently. Echocardiogram ordered and pending. 2. CAD status post CABG, CABG redo, and PCI: Has worsening anginal symptoms as noted above. Continue anti-platelet therapy. Continue beta-sally and high- intensity statin therapy. We discussed potential coronary angiography, if symptoms continue. He is not interested in undergoing invasive measures at this time unless as a life-saving procedure. This was discussed with him in detail. Adjust medical therapy as able. 3. Aortic stenosis: Mild aortic stenosis reported on echocardiogram in 2016. It continues to appear mild on exam. This would not account for his symptoms. 4. Hypertension: Blood pressure mildly elevated. May improve with nitroglycerin paste which has been recently started. Would optimize blood pressure if it remains elevated, which may improve his anginal symptoms. 5. Dyslipidemia: Continue high-intensity statin therapy. 6. Elevated troponins: Likely secondary to CAD in anginal symptoms. It is not yet diagnostic of myocardial infarction. Check serial troponins until peak. He has not had chest discomfort since 11:00 p.m. yesterday and therefore, heparin drip will not be initiated unless he rules in for myocardial infarction or has recurrent symptoms, at which point would recommend heparin drip. 7. Disposition: Dr. Gupta is away from the hospital for the next week. Dr. Kelsey will be available for the next 2 days to assist in his cardiology care. Highly complex medical issues. Thank you for allowing me to participate in the care of your patient. Please call for any other questions or concerns. Sincerely, Faustino Parra M.D.
[2017-04-24 20:00] VITALS: O2SAT 95
[2017-04-24 20:21] VITALS: BP 148/75; PULSE 72; TEMP 36.6; O2SAT 96
[2017-04-24] MEDS ORDERED: LEVOTHYROXINE 25 MCG TAB PO SCH (21:00)
[2017-04-24] MEDS ORDERED: ATORVASTATIN 40 MG TAB PO SCH (21:00)
[2017-04-24] MEDS ORDERED: INSULIN GLARGINE SOLOSTAR 100 UNITS/ML 3 ML PEN SC SCH (21:00)
[2017-04-24] MEDS ORDERED: DOCUSATE SODIUM 100 MG CAP PO SCH (21:00)
[2017-04-24] MEDS ORDERED: FINASTERIDE 5 MG TAB PO SCH (21:00)
[2017-04-24] MEDS ORDERED: ASPIRIN 81 MG ECTAB PO SCH (21:00)
[2017-04-24] MEDS: RANOLAZINE 500 MG ER TAB PO SCH (21:16)
[2017-04-24] MEDS: CALCIUM 600MG + VIT D 400 IU TAB PO SCH (21:16)
[2017-04-24] MEDS: METOPROLOL SUCC 50MG EXT REL TAB PO SCH (21:17)
[2017-04-24] MEDS: MECLIZINE HCL 25 MG TAB PO SCH (21:19)
[2017-04-24 23:57] VITALS: BP 150/73; PULSE 67; TEMP 36.4; O2SAT 97
[2017-04-25 04:05] VITALS: BP 142/77; PULSE 68; TEMP 36.5; O2SAT 96
[2017-04-25] MEDS: NITROGLYCERIN OINT 2% 1GM PACKET EXT SCH ×2 (04:49→10:41)
[2017-04-25] MEDS ORDERED: PERFLUTREN LIPID MICROSPHERE (DEFINITY) IV ONE (07:10)
[2017-04-25] MEDS: METOPROLOL SUCC 50MG EXT REL TAB PO SCH (07:25)
[2017-04-25] MEDS: RANOLAZINE 500 MG ER TAB PO SCH (07:26)
[2017-04-25] MEDS: MECLIZINE HCL 25 MG TAB PO SCH (07:26)
[2017-04-25] MEDS: CALCIUM 600MG + VIT D 400 IU TAB PO SCH (07:26)
[2017-04-25 07:50] VITALS: BP 164/91; PULSE 70; TEMP 36.4; O2SAT 98
[2017-04-25] MEDS: INSULIN ASPART 100 UNITS/ML 3 ML PEN SC SCH ×2 (08:48→11:55)
[2017-04-25 08:53] LABS: CHOLESTEROL/HDL RATIO 2.4
[2017-04-25 08:57] LABS: ESTIMATED AVERAGE GLUCOSE 174 mg/dl; HA1C FLAG Normal (Normal)
[2017-04-25] MEDS ORDERED: CEROVITE ADV FORMULA TAB PO SCH (09:00)
[2017-04-25] MEDS ORDERED: ISOSORBIDE MONONITRATE 30 MG TABCR PO SCH (09:00)
[2017-04-25] MEDS ORDERED: FUROSEMIDE 20 MG TAB PO SCH (09:00)
[2017-04-25] MEDS ORDERED: ASCORBIC ACID 500 MG TAB PO SCH (09:00)
[2017-04-25] MEDS ORDERED: CLOPIDOGREL BISULFATE 75 MG TAB PO SCH (09:00)
[2017-04-25] MEDS ORDERED: PANTOprazole SOD 40 MG TAB PO SCH (09:00)
[2017-04-25 09:06] VITALS: BP 150/87; PULSE 67
--- NOTE | 2017-04-25 09:50 | ECHOCARDIOGRAM REPORT ---
*NOTICE TO RECEIVING DEMOCRAT AGENCY This information is strictly Confidential and protected under [place] law. [place] law prohibits you from making any further disclosure of this information unless further disclosure is expressly permitted by the written consent of the person to whom it pertains or is authorized by law. A general authorization for the release of medical or other information is not sufficient for this purpose. Hospital accepts no responsibility if the information is made available to any other person, INCLUDING THE PATIENT. Interpretation Summary * Name: TRINITY GOMEZ Study Date: 04/25/2017 06:32 AM BP: 164/91 mmHg * Patient Location: C.2T\S\S237\S\1 HR: 70 * : 1930 (M/d/yyyy) Gender: Male Height: 68 in * Age: 86 yrs Ethnicity: CA Weight: 172 lb * Ordering Physician: Mac Parra * Referring Physician: Self, Referred * Performed By: Mamie Mcneil RDCS * * Reason For Study: CHEST PAIN * BSA: 1.9 m2 * -- Conclusions -- * Compared with 03/19/16 study, LV systolic function has declined, MR/ both increased, pulmonary hypertension now seen. * The left ventricle is mildly dilated. * Left ventricular systolic function is moderate to severely reduced. * Ejection Fraction = 30-35%. * There is moderate to severe global hypokinesis of the left ventricle. * There is inferior wall akinesis. * There is severe septal hypokinesis. * Thinning and hyperintensity of inferior wall consistent with old infarct * Grade I diastolic dysfunction, (abnormal relaxation pattern). 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 * There is moderate mitral regurgitation. * The left atrial size is normal. * There is mild tricuspid regurgitation. * Right ventricular systolic pressure is elevated at 40-50mmHg. Procedure Details * A contrast injection of Definity was performed to improve assessment of LV function. * Contrast was injected into an intravenous site in the right arm. * One vial of Definity ultrasound contrast was diluted in normal saline to a total volume of 10 ml. A total of '2' ml of solution was administered during imaging. * Lot # [id number] of Definity utilized for procedure. * Expiration date MAY 29. * The attending nurse who injected the contrast agent was SYLVIA NGUYEN RN. Left Ventricle * The left ventricle is mildly dilated. * Thinning and hyperintensity of inferior wall consistent with old infarct * Ejection Fraction = 30-35%. * Left ventricular systolic function is moderate to severely reduced. * There is moderate to severe global hypokinesis of the left ventricle. * There is inferior wall akinesis. * There is severe septal hypokinesis. Atria * The left atrial size is normal. * Right atrial size is normal. Mitral Valve * There is mild to moderate mitral annular calcification. * There is moderate mitral regurgitation. Tricuspid Valve * The tricuspid valve is normal in structure and function. * There is mild tricuspid regurgitation. * Right ventricular systolic pressure is elevated at 40-50mmHg. Aortic Valve * The aortic valve is trileaflet. 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 * Aortic valve area was calculated at 0.92 cm\S\2 using the continuity equation. * Trace aortic regurgitation. Pulmonic Valve * The pulmonary valve is not well seen, but the Doppler examination is normal without significant regurgitation or stenosis. Great Vessels * The aortic root is normal size. * No obvious dissection could be visualized. * The pulmonary artery is not well visualized, but is probably normal size. Pericardium/Pleural * There is no pericardial effusion. Great Vessels * The inferior vena cava is moderately dilated. Left Ventricular Diastolic Function * Grade I diastolic dysfunction, (abnormal relaxation pattern). MMode 2D Measurements and Calculations IVSd 1.3 cm IVSs 1.5 cm LVIDd 4.6 cm LVIDs 3.9 cm LVPWd 1.1 cm LVPWs 1.3 cm IVS/LVPW 1.2 FS 15.0 % EDV(Teich) 97.7 ml ESV(Teich) 66.5 ml EF(Teich) 31.9 % EDV(cubed) 97.8 ml ESV(cubed) 60.0 ml EF(cubed) 38.6 % % IVS thick 13.0 % % LVPW thick 16.1 % LV mass(C)d 206.3 grams LV mass(C)dI 107.6 grams/m\S\2 LV mass(C)s 197.3 grams LV mass(C)sI 102.9 grams/m\S\2 SV(Teich) 31.2 ml SI(Teich) 16.3 ml/m\S\2 SV(cubed) 37.8 ml SI(cubed) 19.7 ml/m\S\2 Ao root diam 3.0 cm Ao root area 7.3 cm\S\2 LA dimension 4.3 cm LA/Ao 1.4 LVOT diam 2.0 cm LVOT area 3.2 cm\S\2 LVAd ap4 39.4 cm\S\2 LVLd ap4 9.1 cm EDV(MOD-sp4) 138.0 ml LVAs ap4 31.2 cm\S\2 LVLs ap4 8.4 cm ESV(MOD-sp4) 95.8 ml EF(MOD-sp4) 30.6 % LVAd ap2 40.5 cm\S\2 LVLd ap2 8.7 cm EDV(MOD-sp2) 158.0 ml LVAs ap2 32.6 cm\S\2 LVLs ap2 8.9 cm ESV(MOD-sp2) 102.0 ml EF(MOD-sp2) 35.4 % SV(MOD-sp4) 42.2 ml SI(MOD-sp4) 22.0 ml/m\S\2 SV(MOD-sp2) 56.0 ml SI(MOD-sp2) 29.2 ml/m\S\2 Doppler Measurements and Calculations MV E max alma 83.4 cm/sec MV A max alma 94.1 cm/sec MV E/A 0.89 MV dec time 0.15 sec Ao V2 max 210.8 cm/sec Ao max PG 17.8 mmHg Ao max PG (full) 16.3 mmHg Ao V2 mean 148.9 cm/sec Ao mean PG 9.9 mmHg Ao mean PG (full) 9.2 mmHg Ao V2 VTI 47.7 cm MARCIANO(I,A) 0.83 cm\S\2 MARCIANO(I,D) 0.83 cm\S\2 MARCIANO(V,A) 0.92 cm\S\2 MARCIANO(V,D) 0.92 cm\S\2 LV V1 max PG 1.5 mmHg LV V1 mean PG 0.71 mmHg LV V1 max 60.6 cm/sec LV V1 mean 39.3 cm/sec LV V1 VTI 12.3 cm SV(Ao) 347.2 ml SI(Ao) 181.1 ml/m\S\2 SV(LVOT) 39.5 ml SI(LVOT) 20.6 ml/m\S\2 TR max alma 311.5 cm/sec
[2017-04-25] MEDS ORDERED: RNXER500 PO (10:54)
[2017-04-25] MEDS ORDERED: NITR0.2D16 TD ×2 (10:54→11:00)
--- NOTE | 2017-04-25 11:04 | Discharge Instructions ---
Discharge Instructions Date of Service Apr 25, 2017. Admission Reason for Admission: Chest Pain At Rest Discharge Discharge Diagnosis / Problem: Angina, CAD s/p CABG Discharge Goals Goal(s): Decrease discomfort, Improve disease control Activity Recommendations Activity Limitations: resume your previous activity Lifting Limitations: none Exercise/Sports Limitations: as tolerated May Resume Sexual Activity: when tolerated Shower/Bathe: no limitations Driving or Machine Use: no limitations . Instructions / Follow-Up Instructions / Follow-Up Medications: - RANEXA: take twice a day, scheduled, to try to prevent further angina - NITRO PATCH: you tolerated nitro paste so we will order a nitro patch, apply in the morning and leave on for 12-14 hours and then take off at night and leave off for 10-12 hours you may need a higher dose going forward if you still have angina symptoms, started you on the low dose of 0.2mg/hr - NITRO SPRAY: continue to use this as needed for chest pain - IMDUR: stopped this medication since we are going to utilize Ranexa and Nitro patches FOLLOW UP - cardiology this week, if you do not hear from them Thursday by early afternoon, please call Dr. Gupta's office to obtain a hospital follow up appointment Current Hospital Diet Patient's current hospital diet: Diabetes Type 2 Diet, AHA Diet (Heart Healthy) , Low Sodium Diet (2gm Na) Discharge Diet Recommended Diet: AHA Diet (Heart Healthy), Diabetes Type 2 Diet Pending Studies Studies pending at discharge: no Laboratory Results Hemoglobin A1c Test 04/25/17 07:43 Range/Units Estimated Average Glucose 174 mg/dl Hemoglobin A1c 7.7 H 4.5-5.6 % Lipid Panel Test 04/25/17 07:43 Range/Units Triglycerides Level 75 0-150 mg/dl Cholesterol Level 103 0-200 mg/dl HDL Cholesterol 43 mg/dl Cholesterol/HDL Ratio 2.4 LDL Cholesterol, Calculated 45 mg/dl Medical Emergencies . Who to Call and When: Medical Emergencies: If at any time you feel your situation is an emergency, please call 911 immediately. . Non-Emergent Contact Non-Emergency issues call your: Floor Coverings Salesperson Call Non-Emergent contact if: your pain is not controlled, your pain is worsening, you have any medication questions . . "Provider Documentation" section prepared by Zaire Ramsay. . VTE Core Measure Inpt VTE Proph given/why not?: Jeff Brantley, SCD's [place] Drug Monitoring Program Search Results: no issues identified
[2017-04-25 11:28] VITALS: BP 150/87; PULSE 67; TEMP 36.4; O2SAT 98
--- NOTE | 2017-04-25 11:53 | Cardiology Follow-Up ---
Cardiology Follow-Up Date of Service Apr 25, 2017. Cardiology Follow-Up SUBJECTIVE: 86-year-old man with CAD (status post CABG with subsequent redo), CVA, ischemic cardiomyopathy, diabetes, chronic kidney disease, and previously mild aortic stenosis, who was admitted 04/24/2017 with worsening angina. He feels much better this morning, noting no chest discomfort whatsoever. He denies any dyspnea, subjective palpitations, presyncope, or syncope. He noted only a very slight headache on the nitrates. PHYSICAL EXAMINATION: No distress. Vitals: Afebrile. BP 150/87, pulse 67 and regular, respirations 20 but unlabored. Skin: No unusual lesions or ecchymosis. HEENT: Unremarkable. Neck: Jugular venous pulse at the clavicle at 90, transmitted carotid murmur. Lungs: Clear and equal breath sounds bilaterally. No wheezing or crackles. Cardiac: Regular rhythm with 3/6 systolic ejection murmur right upper sternal border radiating to the carotids and heard at the apex as well. No diastolic murmur or distinct gallop. Abdomen: Benign. Extremities: Nontender without edema. Intact peripheral pulses. Neurologic: Normal affect, nonfocal DATA: Troponin remained flat (0.06 to 0.05). ECG today showed sinus rhythm with first-degree AV block, old lateral and inferior infarcts, LVH with QRS widening and repolarization abnormality, no acute ST changes and no change compared with yesterday's ECG. Echocardiogram today showed EF 30-35 % with multiple wall motion abnormalities, moderate to severe aortic stenosis, moderate mitral regurgitation, and moderate pulmonary hypertension. Compared with 2016 study, systolic function had declined an valvular disease was worse, pulmonary hypertension now seen. IMPRESSION: 1. Unstable angina, resolved with adjustment of medical regimen 2. CAD, status post multiple revascularizations 3. Aortic stenosis, now moderate to severe 4. Mitral regurgitation, now moderate 5. Hypertension, borderline controlled 6. Dyslipidemia 7. Elevated troponin, secondary to supply/demand mismatch DISCUSSION: Patient with multiple chronic cardiac issues which will require ongoing outpatient management. Fortunately, he is clinically stable with marked improvement/resolution of his unstable angina on Ranexa and nitropaste. As discussed, could switch to nitropatch for outpatient use. Although his valvular disease has progressed, this could be addressed in a nonurgent fashion during follow up with Dr. Gupta. Will arrange for more immediate follow-up early next week with cardiology to reassess his clinical status. Case discussed with Dr. Ramsay.
--- NOTE | 2017-04-25 13:34 | Discharge Summary ---
Discharge Summary Date of Service Apr 25, 2017. Discharge Summary Admission Date: Apr 24, 2017 at 14:45 Discharge Date: Apr 25, 2017 Discharge Disposition: Home Principal Diagnosis: Angina Problems/Secondary Diagnoses: CAD s/p CABG aortic stenosis Immunizations: History of Tetanus Vaccine?: Unknown History of Pneumococcal: Yes History of Hepatitis B Vaccine: No Procedures: Echocardiogram - global hypokinesis, EF 30-35%, aortic stenosis, moderate to severe Consultations: cardiology Medication Reconciliation New Medications: Nitroglycerin (Nitro-Dur) 0.2 Mg/Hr Dis 1 PATCH TD QD, #30 PATCH 0 Refills apply in the morning, leave on for 12-14 hours, take off at night and leave off for 10-12 hours Ranolazine (Ranexa) 500 Mg Tabcr 500 MG PO BID, #60 TABS 1 Refill Continued Medications: Ascorbic Acid (Ascorbic Acid) 500 Mg Tab 500 MG PO QAM, TAB Aspirin (Aspirin Ec) 81 Mg Tab 81 MG PO HS Atorvastatin (Lipitor) 80 Mg Tab 80 MG PO HS, TAB Calcium/Vitamin D (Os-Bethel 500 Plus D) Tab 1 TAB PO BID, TAB Chromium Picolinate (Chromium Picolinate) 400 Mcg Tab 1 TAB PO QAM Clopidogrel (Plavix) 75 Mg Tab 75 MG PO QAM, TAB Coenzyme Q10 (Ubidecarenone) (Coenzyme Q-10) 200 Mg Cap 1 TAB PO QAM Docusate Sodium (Colace) 100 Mg Cap 1 CAP PO HS, CAP Finasteride (Proscar) 5 Mg Tab 5 MG PO HS, TAB Furosemide (Lasix) 20 Mg Tab 20 MG PO QAM, TAB Insulin Aspart (Novolog Flexpen) 100 Units/Ml Inj 1 DOSE SC SLIDING SCALE Insulin Glargine (Lantus) 100 Unit/Ml Inj 18-25 UNITS SC HS Lansoprazole (Prevacid) 30 Mg Capcr 30 MG PO QAM, CAP Levothyroxine Sodium (Levothyroxine Sodium) 25 Mcg Tab 1 TAB PO HS, TAB Meclizine Hcl (Meclizine Hcl) 25 Mg Tab 1 TAB PO TID for Dizziness or Vertigo for 10 Days, TAB Metoprolol Succ (Toprol Xl) (Toprol-Xl ) 100 Mg Tabcr 100 MG PO BID, TAB Multiple Vitamins W/ Minerals (Centrum Silver 50+Men) 1 Tab Tab 1 TAB PO QAM Nitroglycerin (Nitroglycerin Lingual) 0.4 Mg/Ferney Spr 1 SPRAY PO Potassium Gluconate (K-99) 595 Mg Cap 1 TAB PO QAM Discontinued Medications: Isosorbide Mononitrate (Isosorbide Mononitrate ER) 30 Mg Tabcr 1 TAB PO QAM Discharge Exam Patient feeling better on nitro paste and Ranexa, no chest pain, no dyspnea. Eating well. difficult time sleeping last night. discussed plan with Dr. Kelsey, will d/c on Ranexa and nitro patch, hold Imdur , follow up in cardiology clinic this week patient and his agree with this plan Review of Systems: Constitutional: No fever, No chills, No sweats, No weight loss, No weakness , No fatigue, No problem reported Eyes: No worsening of vision, No eye pain, No redness, No discharge, No diplopia, No problem reported ENT: No hearing loss, No unusual epistaxis, No nasal symptoms, No sore throat, No tinnitus, No dental problems, No trouble swallowing, No problem reported Respiratory: No cough, No sputum, No wheezing, No shortness of breath, No dyspnea on exertion, No dyspnea at rest, No hemoptysis, No problem reported Cardiovascular: No chest pain, No orthopnea, No PND, No edema, No claudication, No palpitations, No problem reported Abdomen: No pain, No nausea, No vomiting, No diarrhea, No constipation, No GI bleeding, No problem reported Musculoskeletal: No joint pain, No muscle pain, No swelling, No calf pain, No problem reported Genitourinary - Male: No hematuria, No dysuria, No urinary frequency, No urinary urgency Neurologic: No memory loss, No paralysis, No weakness, No numbness/tingling , No vertigo, No balance problems, No problem reported Psychiatric: No depression symptoms, No anhedonism, No anxiety, No insomnia , No substance abuse, No problem reported Endocrine: No fatigue, No excessive thirst, No excessive urination, No problem reported Hematologic / Lymphatic: No abnormal bleeding/bruising, No clotting problems , No swollen lymph nodes, No night sweats, No problem reported Integumentary: No rash, No itch, No new/changing skin lesions, No color change, No bleeding, No problem reported Physical Exam: General Appearance: WD/WN, no apparent distress Eyes: normal inspection, EOMI, sclerae normal ENT: normal ENT inspection, hearing grossly normal, pharynx normal Neck: supple, no adenopathy, no JVD, trachea midline Respiratory/Chest: chest non-tender, lungs clear, normal breath sounds, no respiratory distress, no accessory muscle use Cardiovascular: regular rate, rhythm, no edema, no gallop, no JVD, normal peripheral pulses, + systolic murmur Abdomen / GI: normal bowel sounds, non tender, soft, no organomegaly Extremities: normal inspection, no calf tenderness, normal capillary refill , no pedal edema, normal range of motion, pelvis stable 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 Unstable Angina with CAD with SC S/P CABG x 5 and Stents: - Significant CAD with multiple interventions at [facility] - troponin minimally elevated, not significant enough to consider sign of ACS, no EKG changes - ASA 81 mg daily and Plavix 75 mg daily - Hold Imdur and use topical NTG and Ranexa, seemed to control angina better d/c home on Ranexa 500mg BID and nitro patch 0.2mg/hr x 12-14 hours a day and then hold overnight - Metoprolol 100 mg BID - will follow up in cardiology clinic this week Chronic Systolic and Diastolic CHF without Exacerbation: - Echo - EF 30-35%% with diastolic dysfunction; global hypokinesis; borderline dilated L ventricle, moderate to severe - Lasix 20 mg daily - no signs of acute failure Obstructive and Central Sleep Apnea: - Evaluated by PCP yesterday and patient cannot stand CPAP and is considering nocturnal O2 - hasn't been set up yet IDDM: A1c 7.7 - Follows with Dr. Guzman - Lantus 16 units and SSI Hypothyroidism: - Levothyroxine 25 mcg CVA x 2 - tPA given in 2016: - ASA and Plavix as above DVT Prophylaxis: OMAIRA/SCDs Code Status: FULL RESUSCITATION Total Time Spent: Greater than 30 minutes This includes examination of the patient, discharge planning, medication reconciliation, and communication with other providers. Discharge Instructions Please refer to the electronic Patient Visit Report (Discharge Instructions) for additional information. Follow-Up Cardiology clinic this week Additional Copies To Joseph Felton M.D.; Ronald Gupta M.D.
[2017-07-24] MEDS ORDERED: NVLGIPEN SC (12:44)
[2017-07-24] MEDS ORDERED: CARB1SOL9 OT (12:44)
[2017-07-24] MEDS ORDERED: NITR0.4S76 PO (12:44)
[2017-07-24] MEDS ORDERED: HYDR-5688 PO (12:44)
[2017-07-24] MEDS ORDERED: METO1TAB69 PO (12:44)
[2017-07-24] MEDS ORDERED: INSDGI SC (12:44)
[2017-07-24] MEDS ORDERED: PRS5 PO (12:44)
[2017-07-24] MEDS ORDERED: IPRA1AER2 INH (12:44)
== END 2017-04-25 14:02 | disposition home or self-care (01) ==
LOC: C.EDB 11:15 → C.2T 14:45 → ENRESERV 15:18
PROVIDERS: ADMIT Internal Medicine; ATTEND Internal Medicine
DX: I25.119 Atherosclerotic heart disease of native coronary artery with unspecified angina pectoris (principal); I13.0 Hypertensive heart and chronic kidney disease with heart failure and stage 1 through stage 4 chronic kidney disease, or unspecified chronic kidney disease; E11.42 Type 2 diabetes mellitus with diabetic polyneuropathy; Z86.73 Personal history of transient ischemic attack (TIA), and cerebral infarction without residual deficits; I50.42 Chronic combined systolic (congestive) and diastolic (congestive) heart failure; E03.9 Hypothyroidism, unspecified; Z82.49 Family history of ischemic heart disease and other diseases of the circulatory system; Z87.891 Personal history of nicotine dependence; Z79.82 Long term (current) use of aspirin; Z79.4 Long term (current) use of insulin; Z79.899 Other long term (current) drug therapy; Z95.1 Presence of aortocoronary bypass graft; E11.22 Type 2 diabetes mellitus with diabetic chronic kidney disease; N18.3 Chronic kidney disease, stage 3 (moderate); K21.9 Gastro-esophageal reflux disease without esophagitis; E78.5 Hyperlipidemia, unspecified

== ENCOUNTER → 2017-06-11 | Outpatient (CLI) | payer OTHER, MEDICARE ==
[~2017-06-11] MED LIST changes: -AGG PO; -ASCA500 PO; +ASCO500T16 PO; +ASPI81TA28 PO; +CALC500C70 PO; +CARB1SOL9 OT; -CLTP PO; -COEN1CAP46 PO; +COEN200C PO; +DOCU-94 PO; +FINA5TAB PO; +FURO-85 PO; +HYDR-5688 PO; +INSDGI SC; -INSU1INJ7 SC; +IPRA1AER2 INH; -ISOS30TA3 PO; -LANS15CA6 PO; +LANS30CA12 PO; +LEVO25TA5 PO; -LIDO5DIS10 TD; -LSX20 PO; +MECL1TAB42 PO; +METO1TAB69 PO; -METO50TA16 PO; +MULT-1093 PO; +NITR0.2D16 TD; +NITR0.4S76 PO; -NTRGSL/4 UT; -NVLGI SC; +NVLGI/PEN SC; +NVLGIPEN SC; -POTA1TAB94 PO; +POTACAP PO; +PRS5 PO; +RNXER500 PO; -TURM1CAP PO
[2017-06-11 16:31] LABS: BASO % 0.4 %; BASO ABS # 0.03 K/uL (0-0.2); COMPLETE YES; HEMATOCRIT 36.4 % (42-52); IG% 0.4 %; LYMPH % 16.1 %; LYMPH ABS # 1.13 K/uL (1.2-3.4); MEAN CELL VOLUME 79.5 fL (80-100); MEAN CORPUSCULAR HEMOGLOBIN 26.9 pg (25-34); MEAN CORPUSCULAR HGB CONC 33.8 g/dl (32-36); MEAN PLATELET VOLUME 9.7 fL (7.4-10.4); MONO % 10.8 %; NEUT % 68.3 %; PLATELET COUNT 356 K/uL (130-400); RED BLOOD COUNT 4.58 M/uL (4.7-6.1); WHITE BLOOD COUNT 7.03 K/uL (4.8-10.8)
[2017-06-11 17:05] LABS: ALT/SGPT 23 U/L (12-78); AST/SGOT 23 U/L (15-37); BLOOD UREA NITROGEN 17 mg/dl (7-18); BUN/CREATININE RATIO 14.4 (10-20); CALCIUM 8.3 mg/dl (8.5-10.1); CARBON DIOXIDE 29 mmol/L (21-32); CHLORIDE 95 mmol/L (98-107); GLUCOSE 222 mg/dl (70-99); POTASSIUM 3.8 mmol/L (3.5-5.1); SODIUM 130 mmol/L (136-145)
[2017-06-11 17:08] LABS: ALB/GLOB RATIO 0.6 (0.9-2); ALKALINE PHOSPHATASE 121 U/L (45-117)
== END | disposition home or self-care (01) ==
LOC: C.LAB1850 15:40
PROVIDERS: ATTEND Internal Medicine Cardiovascular Disease
DX: R53.1 Weakness (principal); R53.83 Other fatigue

== ENCOUNTER → 2017-06-17 | Outpatient (CLI) | payer OTHER, MEDICARE ==
[2017-06-17 15:46] LABS: URINE APPEARANCE CLEAR (CLEAR); URINE BILIRUBIN NEG (NEG); URINE COLOR YELLOW; URINE NITRITE NEG (NEG); URINE PH 7.5 (4.5-7.5); URINE SPECIFIC GRAVITY 1.016 (1.000-1.030); UROBILINOGEN NEG (NEG)
[2017-06-17 15:52] LABS: MANUAL MICROSCOPIC REQUIRED? NO; REVIEW REQ? NO
== END | disposition home or self-care (01) ==
LOC: C.LAB1850 14:29
PROVIDERS: ATTEND Internal Medicine Cardiovascular Disease
DX: R30.0 Dysuria (principal)

== ENCOUNTER 2017-07-18 13:10 | Inpatient (IN) | payer OTHER, MEDICARE ==
[~2017-07-18] VITALS: Ht 170.2 cm; Wt 65.1 kg
[~2017-07-18 13:10] MED LIST changes: -CARB1SOL9 OT; -HYDR-5688 PO; -IPRA1AER2 INH; -NVLGIPEN SC; -PRS5 PO
[2017-07-18 13:29] VITALS: Ht 170.2 cm; Wt 65.1 kg
[2017-07-18 14:06] LABS: BASO % 0.2 %; BASO ABS # 0.02 K/uL (0-0.2); COMPLETE YES; EOS % 2.1 %; HEMATOCRIT 34.5 % (42-52); IG% 0.5 %; LYMPH % 15.1 %; LYMPH ABS # 1.67 K/uL (1.2-3.4); MEAN CELL VOLUME 79.3 fL (80-100); MEAN CORPUSCULAR HEMOGLOBIN 26.9 pg (25-34); MEAN CORPUSCULAR HGB CONC 33.9 g/dl (32-36); MEAN PLATELET VOLUME 9.4 fL (7.4-10.4); MONO % 9.6 %; NEUT % 72.5 %; PLATELET COUNT 332 K/uL (130-400); RED BLOOD COUNT 4.35 M/uL (4.7-6.1); WHITE BLOOD COUNT 11.05 K/uL (4.8-10.8)
[2017-07-18 14:20] LABS: BUN/CREATININE RATIO 14.5 (10-20); CALCIUM 9.1 mg/dl (8.5-10.1); POTASSIUM 3.5 mmol/L (3.5-5.1)
[2017-07-18 14:31] LABS: ALB/GLOB RATIO 0.5 (0.9-2); CKMB/CK RATIO 2.2 (0-3.0); THYROID STIMULATING HORMONE 4.05 uIu/ml (0.300-4.500)
[2017-07-18 14:55] LABS: URINE APPEARANCE CLEAR (CLEAR); URINE BILIRUBIN NEG (NEG); URINE COLOR YELLOW; URINE EPITHELIAL CELL AUTO 0-5 /lpf (0-5); URINE NITRITE NEG (NEG); URINE SPECIFIC GRAVITY 1.015 (1.000-1.030); UROBILINOGEN NEG (NEG); ZZUR CULT IF INDIC CLEAN CATCH NO
--- NOTE | 2017-07-18 14:59 | DIAGNOSTIC IMAGING REPORT ---
R TIBIA/FIBULA 2 VIEWS ROUTINE HISTORY: 87 years-old Male bruise lateral aspect acute bruising of the right lower extremity COMPARISON: None available TECHNIQUE: 2 views of the right tibia and fibula FINDINGS: Multiple surgical clips are seen about the medial right lower leg. Extensive vascular calcifications are noted. Mild pretibial soft tissue swelling without opaque foreign body. No acute fracture or dislocation. Bones are mildly demineralized. Chondrocalcinosis about the knee. IMPRESSION: Mild pretibial soft tissue swelling without acute fracture or dislocation. The above report was generated using voice recognition software. It may contain grammatical, syntax or spelling errors. Electronically signed by: Walter Ang M.D. 07/18/2017 2:57 PM Dictated Date/Time: 07/18/2017 2:56 PM
--- NOTE | 2017-07-18 15:06 | DIAGNOSTIC IMAGING REPORT ---
CHEST ONE VIEW PORTABLE HISTORY: 87 years-old Male fall acute chest injury status post fall COMPARISON: Chest radiograph 04/24/2017 TECHNIQUE: Portable upright AP view of the chest FINDINGS: Cardiac silhouette is mildly enlarged. There is atherosclerosis of the aorta. Surgical clips project over the left mediastinum. Prior median sternotomy. No pneumothorax. Chronic background reticular opacities are noted with superimposed pulmonary vascular congestion, hazy perihilar and bibasilar alveolar opacities. There is blunting of the right costophrenic angle suggesting small effusion. Bones are grossly intact. Degenerative changes are seen about the shoulders and spine. IMPRESSION: 1. Cardiomegaly with pulmonary vascular congestion, hazy perihilar and bibasilar opacities suggesting pulmonary edema. 2. Chronic background interstitial coarsening. 3. Small right pleural effusion. The above report was generated using voice recognition software. It may contain grammatical, syntax or spelling errors. Electronically signed by: Walter Ang M.D. 07/18/2017 3:04 PM Dictated Date/Time: 07/18/2017 3:01 PM
[2017-07-18 15:10] LABS: MANUAL MICROSCOPIC REQUIRED? NO; REVIEW REQ? NO
[2017-07-18] MEDS ORDERED: SODIUM CHLORIDE 0.9% 1000ML 1,000 ML IV STA (16:33)
--- NOTE | 2017-07-18 16:42 | EMERGENCY ROOM VISIT NOTE ---
History Report prepared by Carlos Enrique: Bandar Guerrero Under the Supervision of: Dr. Gary Choudhury M.D. First contact with patient: 13:50 Chief Complaint: FALL Stated Complaint: SYNCOPE History of Present Illness The patient is a 87 year old male who presents to the Emergency Room by EMS with complaints of intermittent syncopal episodes beginning 1.5 weeks ago. Per , the patient has passed out three times. The patient states that he typically feels dizzy prior his episodes. He states that he did not actually lose consciousness today, and that his episode was more near-syncopal. He states that he injured his right leg during the fall today. The patient also states that he has had pain in his back, but that this is chronic. He wears supplemental oxygen at night, but not during the day. The patient's notes that she gave the patient oxygen after his near-syncopal episode today. She notes that the patient had never had a syncopal event prior to the past weeks. The patient notes that his blood pressure typically runs high. Source of History: patient, spouse/significant other Onset: 1.5 weeks ago Quality: other (syncope) Timing: intermittent Associated Symptoms: No LOC Note: Additional symptoms: right leg pain. Review of Systems All systems have been listed, reviewed, and are negative other than those previously mentioned. Please see Additional Medical History Sheet. 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 Surgical Problems: (1) History of back surgery (2) History of open heart surgery Family History Diabetes mellitus Heart disease Hypertension Social History Smoking Status: Never Smoker Drug Use: none Marital Status: Housing Status: lives with significant other Occupation Status: retired Current/Historical Medications Scheduled Ascorbic Acid (Ascorbic Acid), 500 MG PO QAM Aspirin (Aspirin Ec), 81 MG PO HS Atorvastatin (Lipitor), 80 MG PO HS Calcium/Vitamin D (Os-Bethel 500 Plus D), 1 TAB PO BID Chromium Picolinate (Chromium Picolinate), 400 MCG PO QAM Clopidogrel (Plavix), 75 MG PO QAM Coenzyme Q10 (Ubidecarenone) (Coenzyme Q-10), 200 MG PO QAM Docusate Sodium (Colace), 100 MG PO HS Furosemide (Lasix), 20 MG PO QAM Insulin Glargine (Lantus), 18-22 UNITS SC HS Lansoprazole (Prevacid), 30 MG PO QAM Levothyroxine Sodium (Levothyroxine Sodium), 25 MCG PO HS Meclizine Hcl (Meclizine Hcl), 25 MG PO TID Metoprolol Succ (Toprol Xl) (Toprol-Xl ), 100 MG PO BID Multiple Vitamins W/ Minerals (Centrum Silver 50+Men), 1 TAB PO QAM Nitroglycerin (Nitro-Dur), 1 PATCH TD QD Potassium Gluconate (K-99), 595 MG PO QAM Miscellaneous Medications Insulin Aspart (Novolog Flexpen), 1 DOSE SC Nitroglycerin (Nitroglycerin Lingual), 1 SPRAY PO Allergies Coded Allergies: Iodine (Verified Allergy, Mild, 07/18/17) Iodinated Diagnostic Agents (Verified Allergy, Unknown, UNKNOWN, 07/18/17) Ranolazine (Unverified Allergy, Unknown, unknown, 07/18/17) Yellow Dye (Unverified Allergy, Unknown, unknown, 07/18/17) Physical Exam Vital Signs Date Time Temp Pulse Resp B/P (MAP) Pulse Ox O2 Delivery O2 Flow Rate FiO2 07/18/17 16:06 69 129/62 92 Room Air 73 121/71 70 98/48 07/18/17 16:00 129/62 07/18/17 15:45 67 27 93 07/18/17 15:15 71 24 94 07/18/17 14:45 75 26 90 07/18/17 14:40 72 18 94 07/18/17 14:10 74 21 96 07/18/17 13:40 23 07/18/17 13:29 36.9 82 22 126/73 95 Room Air 07/18/17 13:26 95 Room Air 07/18/17 13:26 36.9 82 22 126/73 95 Room Air 73 121/75 76 119/57 07/18/17 13:24 119/57 10/7/17 13:22 72 07/18/17 13:21 121/75 07/18/17 13:20 132/84 07/18/17 13:13 126/73 Physical Exam GENERAL: Patient awake, alert, oriented x 3. Patient follows commands. Patient does not appear toxic. Patient is adequately hydrated and well- nourished. SKIN: No erythema, pallor, cyanosis or rash HEENT: Normal head, pupils equal, reactive to light and accommodation. Yellow exudate covering over the left TM. Oral cavity and posterior pharynx appear normal. Neck: Without adenopathy, no neck vein distention. LUNGS: Clear to auscultation. No wheezes, no rales, no rhonchi. HEART: Grade 2/6 systolic murmur. No gallops. No rubs CHEST: Midline sternotomy scar. ABDOMEN: No masses, no rebound, no hepatomegaly or splenomegaly. EXTREMITIES: No pedal or pretibial edema. No calf or thigh tenderness. Bruise to the lateral aspect of the right lower leg. NEUROLOGIC: Cranial nerves II-XII within normal limits. No gross motor sensory function deficits. Medical Decision & Procedures ER Provider Diagnostic Interpretation: X ray results are stated below per my interpretation and the radiologist's interpretation. CHEST ONE VIEW PORTABLE FINDINGS: Cardiac silhouette is mildly enlarged. There is atherosclerosis of the aorta. Surgical clips project over the left mediastinum. Prior median sternotomy. No pneumothorax. Chronic background reticular opacities are noted with superimposed pulmonary vascular congestion, hazy perihilar and bibasilar alveolar opacities. There is blunting of the right costophrenic angle suggesting small effusion. Bones are grossly intact. Degenerative changes are seen about the shoulders and spine. IMPRESSION: 1. Cardiomegaly with pulmonary vascular congestion, hazy perihilar and bibasilar opacities suggesting pulmonary edema. 2. Chronic background interstitial coarsening. 3. Small right pleural effusion. The above report was generated using voice recognition software. It may contain grammatical, syntax or spelling errors. Electronically signed by: Walter Ang M.D. 07/18/2017 3:04 PM R TIBIA/FIBULA 2 VIEWS ROUTINE FINDINGS: Multiple surgical clips are seen about the medial right lower leg. Extensive vascular calcifications are noted. Mild pretibial soft tissue swelling without opaque foreign body. No acute fracture or dislocation. Bones are mildly demineralized. Chondrocalcinosis about the knee. IMPRESSION: Mild pretibial soft tissue swelling without acute fracture or dislocation. The above report was generated using voice recognition software. It may contain grammatical, syntax or spelling errors. Electronically signed by: Walter Ang M.D. 07/18/2017 2:57 PM Laboratory Results 07/18/17 13:50 Red Blood Count 4.35, Mean Corpuscular Volume 79.3, Mean Corpuscular Hemoglobin 26.9, Mean Corpuscular Hemoglobin Concent 33.9, Mean Platelet Volume 9.4, Neutrophils (%) (Auto) 72.5, Lymphocytes (%) (Auto) 15.1, Monocytes (%) (Auto) 9.6, Eosinophils (%) (Auto) 2.1, Basophils (%) (Auto) 0.2, Neutrophils # (Auto) 8.02, Lymphocytes # (Auto) 1.67, Monocytes # (Auto) 1.06, Eosinophils # (Auto) 0.23, Basophils # (Auto) 0.02 07/18/17 13:50 Test 07/18/17 13:40 07/18/17 13:50 07/18/17 13:58 07/18/17 16:49 Urine Color YELLOW Urine Appearance CLEAR (CLEAR) Urine pH 8.0 (4.5-7.5) Urine Specific [place]ton 1.015 (1.000-1.030) Urine Protein NEG (NEG) Urine Glucose (UA) NEG (NEG) Urine Ketones NEG (NEG) Urine Occult Blood NEG (NEG) Urine Nitrite NEG (NEG) Urine Bilirubin NEG (NEG) Urine Urobilinogen NEG (NEG) Urine Leukocyte Esterase NEG (NEG) Urine WBC (Auto) 0 /hpf (0-5) Urine RBC (Auto) 0-4 /hpf (0-4) Urine Hyaline Casts (Auto) 1-5 /lpf (0-5) Urine Epithelial Cells (Auto) 0-5 /lpf (0-5) Urine Bacteria (Auto) NEG (NEG) White Blood Count 11.05 K/uL (4.8-10.8) Red Blood Count 4.35 M/uL (4.7-6.1) Hemoglobin 11.7 g/dL (14.0-18.0) Hematocrit 34.5 % (42-52) Mean Corpuscular Volume 79.3 fL (80-100) Mean Corpuscular Hemoglobin 26.9 pg (25-34) Mean Corpuscular Hemoglobin Concent 33.9 g/dl (32-36) Platelet Count 332 K/uL (130-400) Mean Platelet Volume 9.4 fL (7.4-10.4) Neutrophils (%) (Auto) 72.5 % Lymphocytes (%) (Auto) 15.1 % Monocytes (%) (Auto) 9.6 % Eosinophils (%) (Auto) 2.1 % Basophils (%) (Auto) 0.2 % Neutrophils # (Auto) 8.02 K/uL (1.4-6.5) Lymphocytes # (Auto) 1.67 K/uL (1.2-3.4) Monocytes # (Auto) 1.06 K/uL (0.11-0.59) Eosinophils # (Auto) 0.23 K/uL (0-0.5) Basophils # (Auto) 0.02 K/uL (0-0.2) RDW Standard Deviation 47.4 fL (36.4-46.3) RDW Coefficient of Variation 16.3 % (11.5-14.5) Immature Granulocyte % (Auto) 0.5 % Immature Granulocyte # (Auto) 0.05 K/uL (0.00-0.02) Anion Gap 6.0 mmol/L (3-11) Est Creatinine Clear Calc Drug Dose 46.8 ml/min Estimated GFR () 77.0 Estimated GFR (Non- 66.4 BUN/Creatinine Ratio 14.5 (10-20) Calcium Level 9.1 mg/dl (8.5-10.1) Total Bilirubin 0.6 mg/dl (0.2-1) Aspartate Amino Transf (AST/SGOT) 30 U/L (15-37) Alanine Aminotransferase (ALT/SGPT) 23 U/L (12-78) Alkaline Phosphatase 111 U/L (45-117) Total Creatine Kinase 96 U/L (39-308) Creatine Kinase MB 2.1 ng/ml (0.5-3.6) Creatine Kinase MB Ratio 2.2 (0-3.0) Total Protein 7.4 gm/dl (6.4-8.2) Albumin 2.6 gm/dl (3.4-5.0) Globulin 4.8 gm/dl (2.5-4.0) Albumin/Globulin Ratio 0.5 (0.9-2) Thyroid Stimulating Hormone (TSH) 4.050 uIu/ml (0.300-4.500) Bedside Troponin I < 0.030 ng/ml (0-0.045) Laboratory results as stated above per my review. Medications Administered Medications (Trade) Dose Ordered Sig/Zachariah Route Start Time Stop Time Status Last Admin Dose Admin Sodium Chloride 1,000 ml @ 500 mls/hr Q2H STAT IV 07/18/17 16:33 07/18/17 16:49 DC 07/18/17 16:42 500 MLS/HR ECG Indication: syncope Rate (beats per minute): 74 Rhythm: sinus rhythm Findings: 1st degree AV block, other (LVH. Non-specific ST abnormality) ED Course 1352: Past medical records reviewed. The patient was evaluated in room A12B. A complete history and physical examination was performed. 1610: The patient's orthostatic testing was positive. 1633: Ordered Sodium Chloride 1000 ml @ 500 mls/hr IV. 1636: Upon reevaluation, the patient is resting comfortably. I discussed today' s findings with him. He verbalized agreement of the treatment plan. [place] [facility] [place] the patient for further management. 1645 IV saline was stopped and patient was given Lasix 40 mg IV Medical Decision Nurses notes reviewed. Medical history sheet reviewed. Differential diagnosis includes but is not limited to: arrhythmia, orthostatic hypotension, metabolic disorder, TIA, and CVA. The patient had a full examination with laboratory tests, EKG and imaging. Please see above. The patient is slightly anemic. EKG does not reveal an acute change. Chest x-ray is consistent with congestive failure. The patient is orthostatic. The patient was given IV fluids but stopped when the x-ray report came back. The patient was then started on Lasix. In light of this orthostasis and failure I believe he will require further evaluation in the hospital. I discussed care with the patient, his and the hospitalist. Medication Reconcilliation Current Medication List: was personally reviewed by me Blood Pressure Screening Patient's blood pressure: Normal blood pressure Blood pressure disposition: Did not require urgent referral Consults Time Called: 1630 Consulting Physician: Dr. Motta [place] [place]ed Call: [phone] Discussed the patient's case with Dr. Motta. The patient will be evaluated for further management. Impression Primary Impression: Congestive heart failure Additional Impression: Orthostatic hypotension Scribe Attestation The scribe's documentation has been prepared under my direction and personally reviewed by me in its entirety. I confirm that the note above accurately reflects all work, treatment, procedures, and medical decision making performed by me. Departure Information Dispostion Being Evaluated By Hospitalist Referrals Joseph Felton M.D. (PCP) Patient Instructions My [facility] Problem Qualifiers
[2017-07-18] MEDS ORDERED: FUROSEMIDE 40 MG/4 ML VIAL IV STA (16:48)
[2017-07-18] MEDS ORDERED: NITROGLYCERIN SL SPR 4.9 GM BTL SL PRN (17:15)
[2017-07-18] MEDS ORDERED: ACETAMINOPHEN 325 MG TAB PO PRN (17:15)
[2017-07-18] MEDS ORDERED: MAGNESIUM HYDROXIDE SUSP 30 ML UDC PO PRN (17:15)
[2017-07-18] MEDS ORDERED: ONDANSETRON INJ 2 MG/ML 2 ML VIAL IV PRN (17:15)
[2017-07-18] MEDS ORDERED: GLUCOSE 40% GEL 15 GM TUBE PO PRN (17:15)
[2017-07-18] MEDS ORDERED: DEXTROSE 50% 50 ML SYR IV PRN (17:15)
[2017-07-18] MEDS ORDERED: GLUCAGON FOR INJ 1 MG VIAL SQ PRN (17:15)
[2017-07-18] MEDS ORDERED: GLUCOSE 10 TABS/TUBE PO PRN (17:15)
--- NOTE | 2017-07-18 17:36 | History and Physical ---
History & Physical Date & Time of Service: Jul 18, 2017 at 17:18 Chief Complaint: Syncope Primary Care Physician: Joseph Felton M.D. History of Present Illness Source: patient, spouse 87 y/o M who was brought to the ED after having several falls with episodes of syncope and near syncope in the last 1.5 weeks. This seems to occur when pt is moving from lying/seating to standing. states he is losing consciousness at times with this. Pt admits to feeling lightheaded at times. No changes in his medications other than states he has been off of his finasteride. He has been having increased urination, especially at night even though he takes his lasix in the AM. "He is up all night to the bathroom!" Pt was started on HS O2 via NC but in the last few weeks has had SOB that has lead to this being started with ambulation this coming Thursday once the O2 is delivered to the home. Pt has not had much chest pain since having nitro patch started this summer. He has in general felt very fatigued with all of the recent health issues. He does feel he is eating well and has a good appetite. He does have pain in his LE on the R related to his most recent fall and there is swelling related to where he hit his LE with some pain in that area as well. Pt denies fever, abd pain, n/v/c/d.. Past Medical/Surgical History Medical Problems: (1) Diabetes Status: Chronic (2) Heart disease Status: Chronic (3) Hypertension Status: Chronic Surgical Problems: (1) History of back surgery Status: Resolved (2) History of open heart surgery Status: Resolved CHF Peripheral neuropathy Hypothyroid BPH Hx of CVA CAD on aspirin/plavix Family History Family history was reviewed; no changes noted. Social History Smoking Status: Never Smoker Alcohol Use: none Drug Use: none Marital Status: Housing status: lives with significant other Occupational Status: retired Immunizations History of Tetanus Vaccine?: Unknown History of Pneumococcal: Yes History of Hepatitis B Vaccine: No Multi-Drug Resistant Organisms History of MDRO: No Allergies Coded Allergies: Iodine (Verified Allergy, Mild, 07/18/17) Iodinated Diagnostic Agents (Verified Allergy, Unknown, UNKNOWN, 07/18/17) Ranolazine (Unverified Allergy, Unknown, unknown, 07/18/17) Yellow Dye (Unverified Allergy, Unknown, unknown, 07/18/17) Home Medications Scheduled Ascorbic Acid (Ascorbic Acid), 500 MG PO QAM Aspirin (Aspirin Ec), 81 MG PO HS Atorvastatin (Lipitor), 80 MG PO HS Calcium/Vitamin D (Os-[place] 500 Plus D), 1 TAB PO BID Chromium Picolinate (Chromium Picolinate), 400 MCG PO QAM Clopidogrel (Plavix), 75 MG PO QAM Coenzyme Q10 (Ubidecarenone) (Coenzyme Q-10), 200 MG PO QAM Docusate Sodium (Colace), 100 MG PO HS Furosemide (Lasix), 20 MG PO QAM Insulin Glargine (Lantus), 18-22 UNITS SC HS Lansoprazole (Prevacid), 30 MG PO QAM Levothyroxine Sodium (Levothyroxine Sodium), 25 MCG PO HS Meclizine Hcl (Meclizine Hcl), 25 MG PO TID Metoprolol Succ (Toprol Xl) (Toprol-Xl ), 100 MG PO BID Multiple Vitamins W/ Minerals (Centrum Silver 50+Men), 1 TAB PO QAM Nitroglycerin (Nitro-Dur), 1 PATCH TD QD Potassium Gluconate (K-99), 595 MG PO QAM Miscellaneous Medications Insulin Aspart (Novolog Flexpen), 1 DOSE SC Nitroglycerin (Nitroglycerin Lingual), 1 SPRAY PO Review of Systems Pertinent positives and negatives reviewed in HPI--all others negative Physical Exam Vital Signs Date Time Temp Pulse Resp B/P (MAP) Pulse Ox O2 Delivery O2 Flow Rate FiO2 07/18/17 16:06 69 129/62 92 Room Air 73 121/71 70 98/48 07/18/17 16:00 129/62 07/18/17 15:45 67 27 93 07/18/17 15:15 71 24 94 07/18/17 14:45 75 26 90 07/18/17 14:40 72 18 94 07/18/17 14:10 74 21 96 07/18/17 13:40 23 07/18/17 13:29 36.9 82 22 126/73 95 Room Air 07/18/17 13:26 95 Room Air 07/18/17 13:26 36.9 82 22 126/73 95 Room Air 73 121/75 76 119/57 07/18/17 13:24 119/57 10/7/17 13:22 72 07/18/17 13:21 121/75 07/18/17 13:20 132/84 07/18/17 13:13 126/73 General Appearance: no apparent distress, + mild distress (ill appearing) Head: normocephalic, atraumatic Eyes: normal inspection, EOMI ENT: hearing grossly normal Neck: supple Respiratory/Chest: no respiratory distress, + crackles Cardiovascular: regular rate, rhythm, no edema Abdomen/GI: non tender, soft Extremities/Musculoskelatal: no pedal edema, + pertinent finding (R lateral upper calf pain related to swelling s/p fall) Neurologic/Psych: alert, oriented x 3 Diagnostics Laboratory Results Results Past 24 Hours Test 07/18/17 13:40 07/18/17 13:50 07/18/17 13:58 Range/Units Urine Color YELLOW Urine Appearance CLEAR CLEAR Urine pH 8.0 4.5-7.5 Urine Specific [place] 1.015 1.000-1.030 Urine Protein NEG NEG Urine Glucose (UA) NEG NEG Urine Ketones NEG NEG Urine Occult Blood NEG NEG Urine Nitrite NEG NEG Urine Bilirubin NEG NEG Urine Urobilinogen NEG NEG Urine Leukocyte Esterase NEG NEG Urine WBC (Auto) 0 0-5 /hpf Urine RBC (Auto) 0-4 0-4 /hpf Urine Hyaline Casts (Auto) 1-5 0-5 /lpf Urine Epithelial Cells (Auto) 0-5 0-5 /lpf Urine Bacteria (Auto) NEG NEG White Blood Count 11.05 4.8-10.8 K/uL Red Blood Count 4.35 4.7-6.1 M/uL Hemoglobin 11.7 14.0-18.0 g/dL Hematocrit 34.5 42-52 % Mean Corpuscular Volume 79.3 80-100 fL Mean Corpuscular Hemoglobin 26.9 25-34 pg Mean Corpuscular Hemoglobin Concent 33.9 32-36 g/dl Platelet Count 332 130-400 K/uL Mean Platelet Volume 9.4 7.4-10.4 fL Neutrophils (%) (Auto) 72.5 % Lymphocytes (%) (Auto) 15.1 % Monocytes (%) (Auto) 9.6 % Eosinophils (%) (Auto) 2.1 % Basophils (%) (Auto) 0.2 % Neutrophils # (Auto) 8.02 1.4-6.5 K/uL Lymphocytes # (Auto) 1.67 1.2-3.4 K/uL Monocytes # (Auto) 1.06 0.11-0.59 K/uL Eosinophils # (Auto) 0.23 0-0.5 K/uL Basophils # (Auto) 0.02 0-0.2 K/uL RDW Standard Deviation 47.4 36.4-46.3 fL RDW Coefficient of Variation 16.3 11.5-14.5 % Immature Granulocyte % (Auto) 0.5 % Immature Granulocyte # (Auto) 0.05 0.00-0.02 K/uL Sodium Level 135 136-145 mmol/L Potassium Level 3.5 3.5-5.1 mmol/L Chloride Level 98 98-107 mmol/L Carbon Dioxide Level 31 21-32 mmol/L Anion Gap 6.0 3-11 mmol/L Blood Urea Nitrogen 15 7-18 mg/dl Creatinine 1.00 0.60-1.40 mg/dl Est Creatinine Clear Calc Drug Dose 46.8 ml/min Estimated GFR () 77.0 Estimated GFR (Non- 66.4 BUN/Creatinine Ratio 14.5 10-20 Random Glucose 94 70-99 mg/dl Calcium Level 9.1 8.5-10.1 mg/dl Total Bilirubin 0.6 0.2-1 mg/dl Aspartate Amino Transf (AST/SGOT) 30 15-37 U/L Alanine Aminotransferase (ALT/SGPT) 23 12-78 U/L Alkaline Phosphatase 111 45-117 U/L Total Creatine Kinase 96 39-308 U/L Creatine Kinase MB 2.1 0.5-3.6 ng/ml Creatine Kinase MB Ratio 2.2 0-3.0 Total Protein 7.4 6.4-8.2 gm/dl Albumin 2.6 3.4-5.0 gm/dl Globulin 4.8 2.5-4.0 gm/dl Albumin/Globulin Ratio 0.5 0.9-2 Thyroid Stimulating Hormone (TSH) 4.050 0.300-4.500 uIu/ml Bedside Troponin I < 0.030 0-0.045 ng/ml Diagnostic Radiology CXR: IMPRESSION: 1. Cardiomegaly with pulmonary vascular congestion, hazy perihilar and bibasilar opacities suggesting pulmonary edema. 2. Chronic background interstitial coarsening. 3. Small right pleural effusion. R Tib/fib XR: neg for fracture Impression Assessment and Plan 87 y/o M who was admitted on 07/18 for syncope with falls. Syncope: + orthostatics in the ED, uncertain etiology No changes to BP medications, in fact has been off of finasteride for some time ? related to fluid imbalances and intravascular depletion given increased urination? Carotid US pending ECHO 04/2017 with EF 30-35% and many areas of severe hypokinesis--repeat pending given new sx and worsening CHF with medical compliance Lyme pending EKG WNL Holding metoprolol and monitor on tele If work-up is neg, could consider adrenal fatigue Acute on chronic diastolic CHF: lasix 40mg IV in the ED Will leave AM dosing to day team discretion given tenuous fluid status Home dose is 20mg PO daily DM: stable, continue home lantus + add SSI A1c pending HTN: holding metoprolol Hx of CVA/CAD: plavix/aspirin BPH: pt has not been taking finasteride at home and with increased urination Continue to hold HS O2: continue Hypothyroid: TSH WNL continue home meds Other: Full code DM AHA diet Plavix and aspirin use at baseline, will not add other anticoagulation at this time Level of Care Telemetry Resuscitation Status FULL RESUSCITATION VTE Prophylaxis VTE Risk Assessment Done? Y/N: Yes Risk Level: Low
[2017-07-18 18:20] LABS: LYME DISEASE AB IGG NEG (NEG); LYME DISEASE AB IGM NEG (NEG)
[2017-07-18 18:37] VITALS: BP_SYST 131; BP_SYST 134; BP_DIAS 73; BP_DIAS 77; PULSE 77; TEMP 36.8; O2SAT 90
[2017-07-18] MEDS ORDERED: NURSING VERBAL MED ORDER ONE (19:00)
[2017-07-18 19:05] VITALS: O2SAT 93
[2017-07-18] MEDS ORDERED: METOPROLOL SUCC 50MG EXT REL TAB PO SCH (21:00)
[2017-07-18] MEDS: ATORVASTATIN 40 MG TAB PO SCH (21:23)
[2017-07-18] MEDS: DOCUSATE SODIUM 100 MG CAP PO SCH (21:24)
[2017-07-18] MEDS: CALCIUM 600MG + VIT D 400 IU TAB PO SCH (21:25)
[2017-07-18] MEDS: ASPIRIN 81 MG ECTAB PO SCH (21:26)
[2017-07-18] MEDS: INSULIN ASPART 100 UNITS/ML 3 ML PEN SC SCH (21:29)
[2017-07-18] MEDS: INSULIN GLARGINE SOLOSTAR 100 UNITS/ML 3 ML PEN SC SCH (21:30)
[2017-07-19] VITALS (10 sets, daily range): BP systolic 105–130; BP diastolic 55–75; PULSE 66–84; TEMP 36.3–36.9; O2SAT 93–98
--- NOTE | 2017-07-19 06:08 | DIAGNOSTIC IMAGING REPORT ---
CAROTID DOPPLER NECK ART CLINICAL HISTORY: 87 years-old Male presenting with syncope. TECHNIQUE: Real-time grayscale and color and spectral Doppler ultrasound imaging of the bilateral carotid arteries was performed. NASCET criteria was used in evaluating this study. COMPARISON: None. FINDINGS: Right: Common carotid: Atherosclerosis. Peak systolic velocity 66 cm/s. Internal carotid artery: Atherosclerosis of the proximal ICA. Peak systolic velocity 51 cm/s. External carotid artery: Atherosclerosis. Peak systolic velocity 59 cm/s. Systolic ratio: 0.77. Left: Common carotid: Atherosclerosis. Peak systolic velocity 77 cm/s. Internal carotid artery: Atherosclerosis of the proximal ICA. Peak systolic velocity 47 cm/s. External carotid artery: Patent. Peak systolic velocity 34 cm/s. Systolic ratio: 0.61. Bilateral antegrade flow within the vertebral arteries. Reference ranges: Stenosis measurements are compared to reference velocity parameters. Normal ICA peak systolic velocity less than 125 cm/s. Normal ICA peak systolic velocity to common carotid artery velocity ratio is less than 2: less than 2 equates to less than 50% stenosis, 2-4 equates to 50-69% stenosis, greater than 4 equates to greater than or equal to 70% stenosis. Normal ICA end-diastolic velocity less than 40. Blood pressure Brachial: Right: 142/74 mmHg, Left: 150/70 mmHg. IMPRESSION: Diffuse atherosclerosis without hemodynamically significant stenosis seen within the carotid arteries. Electronically signed by: Joseph Richard M.D. 07/19/2017 6:07 AM Dictated Date/Time: 07/19/2017 6:04 AM
[2017-07-19] MEDS: LEVOTHYROXINE 25 MCG TAB PO SCH (06:24)
[2017-07-19] MEDS ORDERED: PERFLUTREN LIPID MICROSPHERE (DEFINITY) IV ONE (08:07)
[2017-07-19] MEDS: CALCIUM 600MG + VIT D 400 IU TAB PO SCH ×2 (08:22→20:43)
[2017-07-19] MEDS: CEROVITE ADV FORMULA TAB PO SCH (08:22)
[2017-07-19] MEDS: LANSOPRAZOLE SOLUTAB 30 MG PO SCH (08:23)
[2017-07-19] MEDS: NITROGLYCERIN 0.2 MG/HR PATCH TD SCH (08:24)
[2017-07-19] MEDS: ASCORBIC ACID 500 MG TAB PO SCH (08:24)
[2017-07-19] MEDS: CLOPIDOGREL BISULFATE 75 MG TAB PO SCH (08:24)
[2017-07-19] MEDS: INSULIN ASPART 100 UNITS/ML 3 ML PEN SC SCH ×4 (08:57→20:46)
[2017-07-19] MEDS ORDERED: POTASSIUM GLUCONATE 595 MG PO SCH (09:00)
[2017-07-19] MEDS ORDERED: COENZYME Q10 200 MG PO SCH (09:00)
[2017-07-19] MEDS ORDERED: CHROMIUM PICOLINATE 400 MCG PO SCH (09:00)
--- NOTE | 2017-07-19 10:10 | ECHOCARDIOGRAM REPORT ---
*NOTICE TO RECEIVING CONSTITUTION PARTY AGENCY This information is strictly Confidential and protected under [place] law. [place] law prohibits you from making any further disclosure of this information unless further disclosure is expressly permitted by the written consent of the person to whom it pertains or is authorized by law. A general authorization for the release of medical or other information is not sufficient for this purpose. Hospital accepts no responsibility if the information is made available to any other person, INCLUDING THE PATIENT. Interpretation Summary * Name: TRINITY GOMEZ Study Date: 07/19/2017 07:24 AM BP: 122/66 mmHg * Patient Location: [facility]\S\N287\S\2 HR: 72 * : 1930 (M/d/yyyy) Gender: Male Height: 67 in * Age: 87 yrs Ethnicity: [place] Weight: 154 lb * Ordering Physician: Adeline Motta * Referring Physician: Self, Referred * Performed By: Conrad Campbell RDCS * * Reason For Study: Syncope * BSA: 1.8 m2 * -- Conclusions -- * The left ventricle is mildly dilated. * Left ventricular systolic function is severely reduced. * Grade I diastolic dysfunction, (abnormal relaxation pattern). * There are regional wall motion abnormalities as specified. * The right ventricular systolic function is reduced as assessed by tricuspid annular plane systolic excursion (TAPSE) (TAPSE <1.6 cm). 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 * There is moderate mitral regurgitation. * Right ventricular systolic pressure is elevated at 30-40mmHg. * Compared directly to an echocardiogram performed on April 25, 2017, there does not appear to be any significant change. Procedure Details * A complete two-dimensional transthoracic echocardiogram was performed (2D, M-mode, Doppler and color flow Doppler). * The study was technically difficult. * The study was technically difficult, but visualization was adequate with the administration of Definity ultrasound contrast. * A contrast injection of Definity was performed to improve assessment of LV function. * One vial of Definity ultrasound contrast was diluted in normal saline to a total volume of 10 ml. A total of '4' ml of solution was administered during imaging. * Lot # [id number] of Definity utilized for procedure. * Expiration date . * The attending nurse who injected the contrast agent was AMELIA Meyer. Left Ventricle * The left ventricle is mildly dilated. * There is normal left ventricular wall thickness. * Left ventricular systolic function is severely reduced. * Ejection Fraction = 25-30%. * Grade I diastolic dysfunction, (abnormal relaxation pattern). * There are regional wall motion abnormalities as specified. * There is akinesis of the interventricular septum and inferior wall. Severe hypokinesis involving the other segments. Right Ventricle * The right ventricle is grossly normal size. * The right ventricular systolic function is reduced as assessed by tricuspid annular plane systolic excursion (TAPSE) (TAPSE <1.6 cm). Atria * The left atrial size is normal. * Right atrial size is normal. Mitral Valve * The mitral valve is grossly normal. * There is moderate mitral regurgitation. Tricuspid Valve * The tricuspid valve is not well visualized. * There is mild tricuspid regurgitation. * Right ventricular systolic pressure is elevated at 30-40mmHg. 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 * Aortic valve area was calculated at 0.90 cm\S\2 using the continuity equation. * There is no significant aortic regurgitation. Pericardium/Pleural * There is no pericardial effusion. Great Vessels * IVC not well visualized MMode 2D Measurements and Calculations IVSd 1.1 cm LVIDd 4.5 cm LVIDs 4.0 cm LVPWd 0.42 cm IVS/LVPW 2.6 FS 11.9 % EDV(Teich) 91.9 ml ESV(Teich) 68.1 ml EF(Teich) 25.9 % EDV(cubed) 90.5 ml ESV(cubed) 61.8 ml EF(cubed) 31.6 % LV mass(C)d 102.3 grams LV mass(C)dI 56.5 grams/m\S\2 SV(Teich) 23.8 ml SI(Teich) 13.2 ml/m\S\2 SV(cubed) 28.6 ml SI(cubed) 15.8 ml/m\S\2 Ao root diam 2.7 cm Ao root area 5.8 cm\S\2 ACS 0.77 cm asc Aorta Diam 3.2 cm LVOT diam 2.0 cm LVOT area 3.2 cm\S\2 LVAd ap4 39.0 cm\S\2 LVLd ap4 8.7 cm EDV(MOD-sp4) 123.5 ml EDV(sp4-el) 128.7 ml LVAs ap4 27.6 cm\S\2 LVLs ap4 7.4 cm ESV(MOD-sp4) 92.6 ml ESV(sp4-el) 96.4 ml EF(MOD-sp4) 25.0 % EF(sp4-el) 25.1 % LVAd ap2 30.2 cm\S\2 LVLd ap2 7.5 cm EDV(MOD-sp2) 99.6 ml LVAs ap2 24.7 cm\S\2 LVLs ap2 7.1 cm ESV(MOD-sp2) 71.0 ml EF(MOD-sp2) 28.7 % SV(MOD-sp4) 30.9 ml SI(MOD-sp4) 17.1 ml/m\S\2 SV(MOD-sp2) 28.6 ml SI(MOD-sp2) 15.8 ml/m\S\2 SV(sp4-el) 32.3 ml SI(sp4-el) 17.8 ml/m\S\2 Doppler Measurements and Calculations MV E max alma 79.3 cm/sec MV A max alma 95.7 cm/sec MV E/A 0.83 MV dec time 0.17 sec Ao V2 max 253.4 cm/sec Ao max PG 25.7 mmHg Ao max PG (full) 23.7 mmHg Ao V2 mean 175.2 cm/sec Ao mean PG 14.0 mmHg Ao mean PG (full) 12.9 mmHg Ao V2 VTI 56.8 cm MARCIANO(I,A) 0.85 cm\S\2 MARCIANO(I,D) 0.85 cm\S\2 MARCIANO(V,A) 0.90 cm\S\2 MARCIANO(V,D) 0.90 cm\S\2 LV V1 max PG 2.0 mmHg LV V1 mean PG 1.1 mmHg LV V1 max 71.1 cm/sec LV V1 mean 49.5 cm/sec LV V1 VTI 15.0 cm SV(Ao) 328.5 ml SI(Ao) 181.5 ml/m\S\2 SV(LVOT) 48.2 ml SI(LVOT) 26.7 ml/m\S\2 PA V2 max 80.5 cm/sec PA max PG 2.6 mmHg TR max alma 257.9 cm/sec
[2017-07-19] MEDS ORDERED: FUROSEMIDE 40 MG/4 ML VIAL IV STA (10:43)
[2017-07-19] MEDS ORDERED: FUROSEMIDE INJ 40 MG in SYRINGE 0 ML IV STA (11:13)
--- NOTE | 2017-07-19 15:31 | Progress Note ---
Subjective Date of Service: Jul 19, 2017. Subjective pt is weak and his is concerned about her ability to care for him at home. The pt does not have a good understanding of his heart failure Problem List Medical Problems: (1) Congestive heart failure Status: Acute (2) Dehydration Status: Acute (3) Near syncope Status: Acute (4) Orthostatic hypotension Status: Acute (5) Substernal chest pain Status: Acute Review of Systems Constitutional: No fever, No chills Respiratory: + dyspnea on exertion, No shortness of breath Cardiac: + orthopnea, No chest pain, No edema Objective Vital Signs Date Time Temp Pulse Resp B/P (MAP) Pulse Ox O2 Delivery O2 Flow Rate FiO2 07/19/17 05:18 36.7 67 16 122/66 (84) 95 Nasal Cannula 3.0 07/19/17 04:05 Nasal Cannula 3.0 07/19/17 00:08 36.9 66 16 128/64 (85) 97 Nasal Cannula 3.0 127/67 (87) 105/55 (72) 07/19/17 00:05 Nasal Cannula 3.0 07/18/17 20:05 Nasal Cannula 3.0 07/18/17 19:05 20 93 Nasal Cannula 3.0 07/18/17 18:37 36.8 77 20 134/77 90 Room Air 131/73 07/18/17 17:37 36.9 70 27 121/71 92 07/18/17 16:06 69 129/62 92 Room Air 73 121/71 70 98/48 07/18/17 16:00 129/62 07/18/17 15:45 67 27 93 07/18/17 15:15 71 24 94 07/18/17 14:45 75 26 90 07/18/17 14:40 72 18 94 07/18/17 14:10 74 21 96 07/18/17 13:40 23 07/18/17 13:29 36.9 82 22 126/73 95 Room Air 07/18/17 13:26 95 Room Air 07/18/17 13:26 36.9 82 22 126/73 95 Room Air 73 121/75 76 119/57 07/18/17 13:24 119/57 07/18/17 13:22 72 07/18/17 13:21 121/75 07/18/17 13:20 132/84 07/18/17 13:13 126/73 Physical Exam General Appearance: WD/WN, + mild distress Neck: no JVD Respiratory/Chest: chest non-tender, + decreased breath sounds, + rales Cardiovascular: regular rate, rhythm, + systolic murmur Abdomen: normal bowel sounds, non tender, soft Extremities: no pedal edema, no calf tenderness Neurologic/Psychiatric: alert, + disoriented Laboratory Results Last 24 Hours Test 07/18/17 13:40 07/18/17 13:50 07/18/17 13:58 07/18/17 20:39 Urine Color YELLOW Urine Appearance CLEAR Urine pH 8.0 Urine Specific [place] 1.015 Urine Protein NEG Urine Glucose (UA) NEG Urine Ketones NEG Urine Occult Blood NEG Urine Nitrite NEG Urine Bilirubin NEG Urine Urobilinogen NEG Urine Leukocyte Esterase NEG Urine WBC (Auto) 0 /hpf Urine RBC (Auto) 0-4 /hpf Urine Hyaline Casts (Auto) 1-5 /lpf Urine Epithelial Cells (Auto) 0-5 /lpf Urine Bacteria (Auto) NEG White Blood Count 11.05 K/uL Red Blood Count 4.35 M/uL Hemoglobin 11.7 g/dL Hematocrit 34.5 % Mean Corpuscular Volume 79.3 fL Mean Corpuscular Hemoglobin 26.9 pg Mean Corpuscular Hemoglobin Concent 33.9 g/dl Platelet Count 332 K/uL Mean Platelet Volume 9.4 fL Neutrophils (%) (Auto) 72.5 % Lymphocytes (%) (Auto) 15.1 % Monocytes (%) (Auto) 9.6 % Eosinophils (%) (Auto) 2.1 % Basophils (%) (Auto) 0.2 % Neutrophils # (Auto) 8.02 K/uL Lymphocytes # (Auto) 1.67 K/uL Monocytes # (Auto) 1.06 K/uL Eosinophils # (Auto) 0.23 K/uL Basophils # (Auto) 0.02 K/uL RDW Standard Deviation 47.4 fL RDW Coefficient of Variation 16.3 % Immature Granulocyte % (Auto) 0.5 % Immature Granulocyte # (Auto) 0.05 K/uL Sodium Level 135 mmol/L Potassium Level 3.5 mmol/L Chloride Level 98 mmol/L Carbon Dioxide Level 31 mmol/L Anion Gap 6.0 mmol/L Blood Urea Nitrogen 15 mg/dl Creatinine 1.00 mg/dl Est Creatinine Clear Calc Drug Dose 46.8 ml/min Estimated GFR () 77.0 Estimated GFR (Non- 66.4 BUN/Creatinine Ratio 14.5 Random Glucose 94 mg/dl Calcium Level 9.1 mg/dl Total Bilirubin 0.6 mg/dl Aspartate Amino Transf (AST/SGOT) 30 U/L Alanine Aminotransferase (ALT/SGPT) 23 U/L Alkaline Phosphatase 111 U/L Total Creatine Kinase 96 U/L Creatine Kinase MB 2.1 ng/ml Creatine Kinase MB Ratio 2.2 Pro-B-Type Natriuretic Peptide 6536 pg/ml Total Protein 7.4 gm/dl Albumin 2.6 gm/dl Globulin 4.8 gm/dl Albumin/Globulin Ratio 0.5 Thyroid Stimulating Hormone (TSH) 4.050 uIu/ml Lyme Disease IgG Antibody NEG Lyme Disease IgM Antibody NEG Bedside Troponin I < 0.030 ng/ml Bedside Glucose 195 mg/dl Test 07/19/17 07:21 07/19/17 07:24 Bedside Glucose 132 mg/dl Assessment and Plan 87 y/o M with presyncope syncope with falls. Syncope: orthostatics, Holding metoprolol Carotid US negative for occlusion ECHO 04/2017 with EF 30-35% and repeat with lower estimate of EF Lyme pending Acute on chronic diastolic/systolic CHF: lasix 40mg IV , takes po lasix daily usually, has rales on exam and will change to iv lasix, may involve Dr Gupta in HF mangement, consider changing to coreg and attempting to add domenic i if bp allows DM: stable, lantus + add SSI Hx of CVA/CAD: plavix/aspirin BPH: finasteride should not cause orthostasis, may restart will discuss with pt chronic hypoxic respiratory failure Hypothyroid: TSH WNL home meds Full code Plavix and aspirin use at baseline, will not add other anticoagulation at this time PT/OT may need snf subacute rehab
[2017-07-19] MEDS: DOCUSATE SODIUM 100 MG CAP PO SCH (20:43)
[2017-07-19] MEDS: ATORVASTATIN 40 MG TAB PO SCH (20:44)
[2017-07-19] MEDS: ASPIRIN 81 MG ECTAB PO SCH (20:44)
[2017-07-19] MEDS: INSULIN GLARGINE SOLOSTAR 100 UNITS/ML 3 ML PEN SC SCH (20:47)
[2017-07-20] VITALS (11 sets, daily range): BP systolic 102–130; BP diastolic 57–72; PULSE 81–97; TEMP 36.3–37; O2SAT 90–96
[2017-07-20] MEDS: LEVOTHYROXINE 25 MCG TAB PO SCH (06:07)
[2017-07-20 06:35] LABS: MEAN CELL VOLUME 78.6 fL (80-100); MEAN CORPUSCULAR HEMOGLOBIN 26.7 pg (25-34); MEAN CORPUSCULAR HGB CONC 33.9 g/dl (32-36); MEAN PLATELET VOLUME 9.6 fL (7.4-10.4); PLATELET COUNT 319 K/uL (130-400); WHITE BLOOD COUNT 8.67 K/uL (4.8-10.8)
[2017-07-20 07:11] LABS: CREATININE 1.1 mg/dl (0.60-1.40)
[2017-07-20 07:12] LABS: BUN/CREATININE RATIO 17.2 (10-20); CALCIUM 8.9 mg/dl (8.5-10.1)
[2017-07-20] MEDS ORDERED: MAGNESIUM SULFATE 1GM / D5W 1 GM in PREMIXED IN D5W 100 ML IV ONE (08:00)
[2017-07-20] MEDS: CALCIUM 600MG + VIT D 400 IU TAB PO SCH ×2 (08:09→20:04)
[2017-07-20] MEDS: CLOPIDOGREL BISULFATE 75 MG TAB PO SCH (08:09)
[2017-07-20] MEDS: LANSOPRAZOLE SOLUTAB 30 MG PO SCH (08:09)
[2017-07-20] MEDS: CEROVITE ADV FORMULA TAB PO SCH (08:09)
[2017-07-20] MEDS: ASCORBIC ACID 500 MG TAB PO SCH (08:10)
[2017-07-20] MEDS: FUROSEMIDE INJ 40 MG in SYRINGE 0 ML IV SCH (08:10)
[2017-07-20] MEDS: NITROGLYCERIN 0.2 MG/HR PATCH TD SCH (08:10)
[2017-07-20] MEDS: INSULIN ASPART 100 UNITS/ML 3 ML PEN SC SCH ×4 (08:16→20:10)
[2017-07-20] MEDS: POTASSIUM CHLORIDE 20 MEQ TABCR PO SCH ×2 (08:51→20:05)
[2017-07-20] MEDS ORDERED: FUROSEMIDE 40 MG/4 ML VIAL IV STA (16:48)
--- NOTE | 2017-07-20 16:54 | Progress Note ---
Subjective Date of Service: Jul 20, 2017. Subjective pt states he feels better, wants to speak to DR Gupta, had some diuresis with weight reduction, concerned about pt returning home too soon Problem List Medical Problems: (1) Congestive heart failure Status: Acute (2) Dehydration Status: Acute (3) Near syncope Status: Acute (4) Orthostatic hypotension Status: Acute (5) Substernal chest pain Status: Acute Review of Systems Constitutional: + weakness, + fatigue, No fever, No chills Respiratory: + shortness of breath, + dyspnea on exertion, No cough Cardiac: No chest pain, No PND, No edema Abdomen: No pain, No nausea, No vomiting, No diarrhea Objective Vital Signs Date Time Temp Pulse Resp B/P (MAP) Pulse Ox O2 Delivery O2 Flow Rate FiO2 07/20/17 16:00 Nasal Cannula 2.0 07/20/17 15:06 36.5 86 18 130/72 (91) 96 Nasal Cannula 2.0 07/20/17 12:00 92 Nasal Cannula 2.0 07/20/17 11:13 36.3 83 20 102/62 (75) 92 Nasal Cannula 2.0 07/20/17 08:00 95 Nasal Cannula 2.0 07/20/17 07:27 36.8 81 18 112/71 (85) 95 Room Air 07/20/17 04:15 37.0 82 16 121/62 (81) 94 Nasal Cannula 2.0 07/20/17 04:05 96 Nasal Cannula 2.0 07/20/17 00:19 36.5 87 16 103/57 (72) 90 Nasal Cannula 1.0 07/20/17 00:05 96 Nasal Cannula 2.0 07/19/17 20:17 36.8 79 18 114/65 (81) 97 Room Air 07/19/17 20:05 96 Nasal Cannula 2.0 Physical Exam General Appearance: WD/WN, + mild distress Neck: no JVD Respiratory/Chest: chest non-tender, + decreased breath sounds, + rales Cardiovascular: regular rate, rhythm, no murmur Abdomen: normal bowel sounds, non tender, soft Extremities: no pedal edema, no calf tenderness Neurologic/Psychiatric: alert, oriented x 3 Laboratory Results Last 24 Hours Test 07/19/17 20:35 07/20/17 05:58 07/20/17 07:17 07/20/17 11:24 Bedside Glucose 151 mg/dl 176 mg/dl 140 mg/dl White Blood Count 8.67 K/uL Red Blood Count 4.20 M/uL Hemoglobin 11.2 g/dL Hematocrit 33.0 % Mean Corpuscular Volume 78.6 fL Mean Corpuscular Hemoglobin 26.7 pg Mean Corpuscular Hemoglobin Concent 33.9 g/dl RDW Standard Deviation 46.8 fL RDW Coefficient of Variation 16.4 % Platelet Count 319 K/uL Mean Platelet Volume 9.6 fL Sodium Level 134 mmol/L Potassium Level 3.0 mmol/L Chloride Level 97 mmol/L Carbon Dioxide Level 29 mmol/L Anion Gap 8.0 mmol/L Blood Urea Nitrogen 19 mg/dl Creatinine 1.10 mg/dl Est Creatinine Clear Calc Drug Dose 42.6 ml/min Estimated GFR () 68.6 Estimated GFR (Non- 59.2 BUN/Creatinine Ratio 17.2 Random Glucose 174 mg/dl Calcium Level 8.9 mg/dl Assessment and Plan 87 y/o M with presyncope syncope with falls. Syncope: will restart metoprolol, diuresis and no sign of arrythmia but is at risk with low EF Carotid US negative for occlusion ECHO 04/2017 with EF 30-35% and repeat with lower estimate of EF Lyme neg Acute on chronic diastolic/systolic CHF: lasix 40mg IV , takes po lasix dailyconsult Dr Gupta ofr oversight with HF mangement, Attempt low dose coreg and lisinopril when able DM: stable, contrilled lantus + add SSI Hx of CVA/CAD: plavix/aspirin BPH: finasteride should not cause orthostasis,restart as has what sounds like overflow incontinence chronic hypoxic respiratory failure, oxygen supplementation, worsened by acute on chronic systolic heart failure Hypothyroid: TSH WNL home meds Full code Plavix and aspirin use at baseline, will not add other anticoagulation at this time PT/OT may need snf subacute rehab
[2017-07-20] MEDS ORDERED: FUROSEMIDE INJ 40 MG in SYRINGE 0 ML IV STA (16:57)
[2017-07-20] MEDS: ASPIRIN 81 MG ECTAB PO SCH (20:04)
[2017-07-20] MEDS: ATORVASTATIN 40 MG TAB PO SCH (20:04)
[2017-07-20] MEDS: CARVEDILOL 3.125 MG TAB PO SCH (20:05)
[2017-07-20] MEDS: DOCUSATE SODIUM 100 MG CAP PO SCH (20:05)
[2017-07-20] MEDS: INSULIN GLARGINE SOLOSTAR 100 UNITS/ML 3 ML PEN SC SCH (20:10)
[2017-07-21] VITALS (7 sets, daily range): BP systolic 93–125; BP diastolic 60–82; PULSE 78–94; TEMP 36.5–36.7; O2SAT 96–98
[2017-07-21] MEDS: LEVOTHYROXINE 25 MCG TAB PO SCH (06:10)
[2017-07-21] MEDS ORDERED: INFLUENZA ADMINISTRATION CHARGE ONE (07:45)
[2017-07-21] MEDS ORDERED: INFLUENZA VACCINE HIGH DOSE 65+ 0.5 ML SYR IM. ONE (07:45)
[2017-07-21] MEDS: FINASTERIDE 5 MG TAB PO SCH (08:20)
[2017-07-21] MEDS: NITROGLYCERIN 0.2 MG/HR PATCH TD SCH (08:20)
[2017-07-21] MEDS: INSULIN ASPART 100 UNITS/ML 3 ML PEN SC SCH ×4 (08:20→22:12)
[2017-07-21] MEDS: LANSOPRAZOLE SOLUTAB 30 MG PO SCH (08:20)
[2017-07-21] MEDS: FUROSEMIDE INJ 40 MG in SYRINGE 0 ML IV SCH (08:21)
[2017-07-21] MEDS: CEROVITE ADV FORMULA TAB PO SCH (08:21)
[2017-07-21] MEDS: CALCIUM 600MG + VIT D 400 IU TAB PO SCH ×2 (08:21→22:07)
[2017-07-21] MEDS: CLOPIDOGREL BISULFATE 75 MG TAB PO SCH (08:21)
[2017-07-21] MEDS: POTASSIUM CHLORIDE 20 MEQ TABCR PO SCH (08:21)
[2017-07-21] MEDS: CARVEDILOL 3.125 MG TAB PO SCH ×2 (08:21→21:00)
[2017-07-21] MEDS: ASCORBIC ACID 500 MG TAB PO SCH (08:22)
[2017-07-21] MEDS ORDERED: LISINOPRIL 2.5 MG TAB PO SCH (09:00)
--- NOTE | 2017-07-21 14:19 | CARDIOLOGY CONSULTATION ---
DATE OF CONSULTATION: 07/21/2017 DATE OF CONSULTATION: 07/21/2017 PRIMARY PHYSICIAN: Joseph Felton M.D. REFERRING ATTENDING PHYSICIAN: Devendra Julien M.D. CONSULTATION: Ronald Gupta M.D. HISTORY OF PRESENT ILLNESS: The patient is an 87-year-old white male well known to me. Longstanding history of coronary artery disease. Remote history of inferolateral CA. CABG x5 08/15/2008 to the [facility]. HOLDER -- LAD stenting; SVG-RCA; SVG-left circumflex; SVG-diagonal/diagonal bridge graft. Recurrent anginal symptoms 1995. Repeat cardiac catheterization performed at [facility] with diffusely diseased LAD, left circumflex supplied via saphenous vein graft, total occlusion of vein graft to RCA, vein graft to diagonals with diffuse disease and poor flow, saphenous vein graft to left circumflex with 80% distal anastomosis. Patent HOLDER graft to LAD. LAD with diffuse disease. Repeat bypass surgery 12/14/1995. Saphenous vein graft from left subclavian to distal and prior vein graft to left circumflex marginal. Repeat cardiac catheterization in August 2007 at [facility] with patent vein graft to second obtuse marginal branch, patent HOLDER graft to LAD, 90% left main stenosis, total mid LAD stenosis, 70% distal LAD stenosis, 60% first LAD diagonal stenosis, total proximal RCA stenosis, collateral flow from the LAD to RCA. Distal LAD with diffuse atherosclerotic disease. Sequential stenotic lesion 60-70%. Proximal circumflex with 70% stenosis. Second and third obtuse marginal branches with total stenoses. Subsequent deployment of a drug-eluting stent left main and ostial left circumflex. Status post external counterpulsation treatment in 2009. Also history of aortic stenosis. Most recent echocardiogram prior to this admission performed on 04/25/2017. LV ejection fraction 35%. Moderate to severe global hypokinesis of the left ventricle with inferior akinesis and severe septal hypokinesis. Moderate to severe aortic stenosis. Moderate mitral regurgitation. Mild tricuspid regurgitation. Mildly elevated estimated right ventricular systolic pressure 40-50 mmHg. He also has a history of combined central and obstructive sleep apnea. He does not tolerate CPAP therapy. Longstanding history of episodes of postural lightheadedness requiring multiple changes in medications and also in medications doses. History of acute CVA March 2016. Treated with TPA. Punctate lesions noted in left cerebellar hemisphere. History of intolerance to higher doses of isosorbide mononitrate. History of fatigue and weakness on ranolazine. This is especially prominent at dose of 1000 mg b.i.d. The patient was last seen by me in cardiology clinic on 06/17/2017. At that time he was complaining of episodes of lightheadedness. These would last for several seconds. The week prior to that visit his ranolazine had been discontinued 1 week prior secondary to complaints of severe fatigue. The patient was admitted with history of recurrent episodes of syncope and near syncope reported by his . This was 1-1/2 weeks prior to this admission. The patient on admission reported a sensation of lightheadedness. On my visit with the patient today, he does not recall any details of his episodes of syncope or near syncope. He does recall having episodes of lightheadedness. He has been relatively inactive over the past few weeks. Without activity he does not have any anginal symptoms. With prolonged walking after meals, he has retrosternal chest tightness that resolves with rest or sublingual nitroglycerin. He denies any lightheadedness today. He has had no palpitations. He denies chest pain. No orthopnea or PND overnight. As stated above he does not tolerate CPAP therapy. He also has difficulty in keeping nasal cannula in place overnight. He has this at home. He denies any GI fluid losses. He denies any bleeding complaints. No pulmonary complaints. No abdominal pain or nausea. Occasional sensation of dysuria, also urinary frequency. No new focal motor weakness. He does complain of chronic weakness and fatigue in both legs. PAST MEDICAL HISTORY: 1. Coronary artery disease as above. 2. Calcific aortic stenosis as documented above. 3. Hypertension. 4. Dyslipidemia. 5. Diabetes mellitus. 6. Cerebrovascular disease. 7. Memory loss. 8. Central and obstructive sleep apnea, nocturnal hypoxia. 9. Dilated cardiomyopathy. 10. Hypothyroidism. 11. Gait disturbance. 12. GE reflux disease. 13. Prostatic hypertrophy. 14. Diabetic peripheral neuropathy. 15. Diabetic nephropathy. 16. History of herpes zoster. 17. History of orthostatic lightheadedness. PAST SURGICAL HISTORY: 1. Status post CABG surgery in 1981 and again in 1995. 2. Status post left main drug-eluting stent. 3. Status post cataract surgery. 4. Status post hemorrhoidectomy. 5. Status post inguinal hernia repair. 6. Status post lumbar laminectomy. 7. Status post pilonidal cyst resection. 8. Status post tonsillectomy with adenoidectomy. FAMILY HISTORY: Noncontributory at this time. There was a history of coronary artery disease in his father. Son with history of coronary artery disease. Brother with history of coronary artery disease. SOCIAL HISTORY: The patient is and lives with his . He has never smoked cigarettes. CURRENT MEDICATIONS: Finasteride 5 mg daily, carvedilol 3.125 mg b.i.d., furosemide 40 mg IV daily, vitamin C 500 mg daily, clopidogrel 75 mg daily, multivitamin 1 tab daily, Nitro-Dur patch 0.2 mg per hour 1 patch daily, Prevacid 30 mg daily, levothyroxine 25 mcg daily, aspirin 81 mg daily, atorvastatin 80 mg daily, calcium with vitamin D 1 b.i.d., docusate sodium 100 mg at bedtime, Lantus insulin 18 units subQ at bedtime, and several p.r.n. medications. ALLERGIES AND ADVERSE DRUG REACTIONS: IODINATED CONTRAST AGENTS, RANOLAZINE, YELLOW DYE. PHYSICAL EXAMINATION: GENERAL: The patient is sitting up in a chair by his bedside. No distress. VITAL SIGNS: Oral temperature this morning 36.7. Pulse 78. Blood pressure 125/82, pulse oximetry room air 98%. Monitor history since admission reviewed by me. Sinus rhythm, first degree AV block, occasional premature ventricular beat. No sustained arrhythmias. No abnormal bradyarrhythmias. HEAD: Normal. EYES: Pupils equal and round. Anicteric. Conjunctivae normal. No xanthelasma. NECK: No jugular venous distention noted. He is sitting in the upright position. Carotids 2/2 bilaterally. No bruit. Delayed upstroke. LUNGS: Bibasilar rales. Normal respiratory effort. No rhonchi or wheezing. HEART: PMI normal. No lifts or heaves. Regular rate and rhythm. Diminished but present aortic valvular closing sound. A 2/6 systolic murmur second right intercostal space and left sternal border. No diastolic murmur or rub. No S3 heard. ABDOMEN: Soft. Nontender. No palpable masses or organomegaly. No bruits. EXTREMITIES: No pretibial edema. No calf tenderness. No cyanosis or clubbing. The patient does have ecchymoses and swelling in his right lateral lower leg just below the knee. NEUROLOGIC: Alert and oriented x3. He can move all extremities. PSYCHIATRIC: Affect is normal. DATA: Electrocardiogram this admission with normal sinus rhythm, first degree atrioventricular block, left axis deviation, inferior and anterolateral myocardial infarction, nonspecific ST and T-wave abnormalities, LVH. There was a monitor strip in the electronic chart which is labeled "atrial flutter". Review of the strip by me shows it to be sinus rhythm with first degree atrioventricular block. Chest x-ray on this admission and reviewed by me shows increased heart size, interstitial edema, pulmonary vascular congestion. Findings consistent with congestive heart failure. Carotid ultrasound this admission with no significant internal carotid artery disease. Antegrade flow noted in vertebral arteries. X-ray of right tibia and fibula with soft tissue swelling in right lower legs. No evidence of fracture. LABORATORY DATA: On 07/20/2017 with WBC 8.67, hemoglobin 11.2, hematocrit 33.0, platelet count 319. Metabolic profile on July 20 with sodium 134, potassium 3.0, chloride 97, carbon dioxide 29, BUN 19, creatinine 1.10, random glucose 174. Point of care troponin I on July 18 was less than 0.030. ProB natriuretic peptide on admission was 6,536. ASSESSMENT: 1. Admission with recurrent episodes of falling. Likely multifactorial in origin. He does have a longstanding history of postural lightheadedness. This has required frequent changes in his medications and doses. His episodes of falling do appear to be worse since he sustained the CVA last year. He also has diabetic peripheral neuropathy. This causes him to have gait imbalance. The prior CVA may also be contributing to his gait imbalance. On this admission, some of his orthostatic blood pressure and heart rate determinations have shown a drop in his systolic pressure. The lowest standing pressure documented has been 98/48. There has been no evidence of any significant arrhythmia. The patient's aortic stenosis could also be contributory to his lightheadedness, syncope, and near syncope. Echocardiogram performed on July 19 revealed moderate to severe aortic stenosis, severe LV systolic dysfunction with the ejection fraction 25-30%, grade 1 LV diastolic dysfunction. There was akinesis of the intraventricular septum and inferior wall. Severe hypokinesis of the other LV segments. He also had right ventricular systolic dysfunction. Mildly elevated estimated pulmonary artery pressure of 30-40 mmHg. 2. Longstanding history of coronary artery disease. Diffuse multivessel coronary artery disease. His anginal symptoms have actually been stable over the past several years. They usually only occur with exertion. More frequent with exertion after meals. With his normal activities and at rest he does not have anginal symptoms. Because of the stable nature of his anginal symptoms. Continued medical therapy was recommended. 3. Aortic stenosis. Only recently has his estimated aortic valve area been less than 1 sq. cm. In the past, he had moderate aortic stenosis. The patient is obviously a poor candidate for aortic valve replacement. He would also be at increased risk for a TAVR procedure. In the past it was felt that the severity of his aortic stenosis did not warrant aortic valve replacement. 4. No evidence of any significant arrhythmia. 5. Evidence of congestive heart failure on both chest x-ray and exam. RECOMMENDATIONS: 1. The patient has been switched to carvedilol on this admission. Will need to closely monitor for any significant orthostatic drops in his blood pressure with the carvedilol. 2. Continue low dose nitrate therapy. 3. Continue diuresis. Watch for intravascular volume depletion and worsening of his creatinine. 4. In light of his multiple comorbidities, the patient would be at significantly increased risk for invasive cardiac procedures such as cardiac catheterization, percutaneous coronary intervention, or transaortic valve replacement. This has been extensively discussed by me with the patient and his in the past. Continue medical management had been agreed upon. At this time, would recommend continued medical management of his underlying heart disease. Thank you for asking me to see this patient in cardiology consultation. BRYAN
[2017-07-21] MEDS: DOCUSATE SODIUM 100 MG CAP PO SCH (22:07)
[2017-07-21] MEDS: ATORVASTATIN 40 MG TAB PO SCH (22:08)
[2017-07-21] MEDS: ASPIRIN 81 MG ECTAB PO SCH (22:08)
[2017-07-21] MEDS: INSULIN GLARGINE SOLOSTAR 100 UNITS/ML 3 ML PEN SC SCH (22:13)
[2017-07-22] VITALS (8 sets, daily range): BP systolic 109–127; BP diastolic 59–86; PULSE 80–104; TEMP 36.4–36.7; O2SAT 91–98
[2017-07-22] MEDS: LEVOTHYROXINE 25 MCG TAB PO SCH (05:40)
[2017-07-22 08:09] LABS: HEMATOCRIT 34.4 % (42-52); MEAN CELL VOLUME 79.1 fL (80-100); MEAN CORPUSCULAR HEMOGLOBIN 26.9 pg (25-34); PLATELET COUNT 315 K/uL (130-400); RED BLOOD COUNT 4.35 M/uL (4.7-6.1)
[2017-07-22 08:37] LABS: BUN/CREATININE RATIO 18.9 (10-20); CREATININE 1.1 mg/dl (0.60-1.40); POTASSIUM 3.3 mmol/L (3.5-5.1)
[2017-07-22] MEDS: LANSOPRAZOLE SOLUTAB 30 MG PO SCH (08:45)
[2017-07-22] MEDS: CEROVITE ADV FORMULA TAB PO SCH (08:45)
[2017-07-22] MEDS: CLOPIDOGREL BISULFATE 75 MG TAB PO SCH (08:45)
[2017-07-22] MEDS: FUROSEMIDE INJ 40 MG in SYRINGE 0 ML IV SCH (08:45)
[2017-07-22] MEDS: ASCORBIC ACID 500 MG TAB PO SCH (08:45)
[2017-07-22] MEDS: FINASTERIDE 5 MG TAB PO SCH (08:45)
[2017-07-22] MEDS: CALCIUM 600MG + VIT D 400 IU TAB PO SCH ×2 (08:45→20:48)
[2017-07-22] MEDS: NITROGLYCERIN 0.2 MG/HR PATCH TD SCH (08:46)
[2017-07-22] MEDS: INSULIN ASPART 100 UNITS/ML 3 ML PEN SC SCH ×4 (08:47→20:51)
[2017-07-22] MEDS: CARVEDILOL 3.125 MG TAB PO SCH ×2 (08:48→20:49)
[2017-07-22] MEDS: POTASSIUM CHLORIDE 20 MEQ TABCR PO SCH ×2 (10:52→20:47)
--- NOTE | 2017-07-22 13:11 | CARDIOLOGY PROGRESS NOTE ---
DATE: 07/22/2017 SUBJECTIVE: The patient was seen by me this morning in his telemetry unit room. He denies any lightheadedness today. He denies any dyspnea, sitting in a chair by his bedside. No orthopnea or PND overnight. He denies any chest pain or other anginal type pains. No pulmonary complaints. No GI complaints. No complaints of any leg pain. No focal neurologic deficits or weakness. He does have bilateral chronic leg weakness. CURRENT MEDICATIONS: Potassium 40 mEq b.i.d., finasteride 5 mg daily, carvedilol 3.125 mg b.i.d., furosemide 40 mg IV daily, vitamin C 500 mg daily, clopidogrel 75 mg daily, multivitamin 1 daily, nitroglycerin patch 0.2 mg per hour 1 patch daily, Prevacid 30 mg daily, levothyroxine 25 mcg daily, NovoLog sliding scale insulin, aspirin 81 mg daily, atorvastatin 80 mg daily, calcium with vitamin D 1 tab b.i.d., docusate sodium 100 mg at bedtime, Lantus insulin 18 units at bedtime, and a few p.r.n. medications. ALLERGIES AND ADVERSE DRUG REACTIONS: IODINATED CONTRAST DYE, RANOLAZINE, YELLOW DYE. INTAKE AND OUTPUT: Yesterday, reported to be 975/975. Today's weight reported to be 67.4 kg, yesterday's 67.1 kg. Monitor history over the past 24 hours reviewed by me. Sinus rhythm, occasional premature ventricular beat. PHYSICAL EXAMINATION: VITAL SIGNS: This morning with oral temperature 36.6, pulse 83, blood pressure 124/84, pulse oximetry 98%. GENERAL APPEARANCE: Shows him to be sitting in a chair by his bedside. No distress. NECK: No jugular venous distention. LUNGS: Decreased breath sounds both bases. HEART: Regular rate and rhythm. Diminished aortic valvular closing sound. A 2/6 systolic murmur second right intercostal space and left sternal border. No S3 or rub. ABDOMEN: Soft. Nontender. No palpable masses or organomegaly. EXTREMITIES: No pretibial edema. No calf tenderness. NEUROLOGIC: Alert and oriented x3. He moves all extremities. PSYCHIATRIC: Affect is normal. LABORATORY DATA: Today with WBC 8.80, hemoglobin 11.7, hematocrit 34.4, platelet count 315. Metabolic profile with sodium 136, potassium 3.3, chloride 97, carbon dioxide 31, BUN 21, creatinine 1.0, random glucose 138, and magnesium 2.1. ASSESSMENT: 1. Longstanding history of coronary artery disease. Status post coronary artery bypass grafting surgery in 1981 and then again in 1995. Status post left main to the left circumflex coronary artery stent in 2006. No current anginal symptoms. Prior to admission, he had stable anginal symptoms precipitated by walking. This usually occurred after eating a meal. No rest angina. Cardiac enzymes negative for myocardial injury on this admission. 2. Severe left ventricular systolic dysfunction on echocardiogram this admission. He also has right ventricular systolic dysfunction, and severe aortic stenosis. No current symptoms of any significant pulmonary vascular congestion. He has good oxygen saturation on room air. On exam, there are decreased breath sounds at the bases. This could represent atelectasis. No evidence of volume overload on exam. 3. Prerenal azotemia. Likely secondary to diuresis. 4. Longstanding history of postural lightheadedness. This has required multiple changes in medications and doses of his medications over the past several years. Currently, blood pressure is good. No current lightheadedness. 5. Episodes of falling. These could be multifactorial. Cannot exclude orthostatic hypotension. However, his balance has decreased since his cerebrovascular accident last year. Also, he has diabetic peripheral neuropathy which could affect his gait and balance. On this admission, there has been no evidence of any significant arrhythmia. He has had documentation of decreased blood pressure from supine to standing on 2 determinations this admission. However, the standing blood pressure was always in the 90s as documented. In addition to above, the patient has previously reported symptoms suggestive of vertigo. 6. On admission, he was on metoprolol succinate ER 100 mg daily. This was changed to carvedilol on admission. With this change, his heart rate has increased. Thus far, he has had no worsening of any anginal symptoms. RECOMMENDATIONS: 1. Switch back to oral diuretics. 2. Can continue with carvedilol at this time. However, need to monitor heart rate. Especially, need to monitor her heart rate with ambulation. If he has an elevated heart rate with exercise which precipitates anginal symptoms, may need to reconsider metoprolol succinate ER. Increasing the carvedilol would likely exacerbate his postural hypotension. 3. Increase activity. 4. The patient may benefit from a stay at a retirement facility to undergo physical therapy. 5. Conservative medical management of his underlying heart disease.
--- NOTE | 2017-07-22 19:31 | Progress Note ---
Subjective Date of Service: Jul 22, 2017. Subjective Pt evaluation today including: conversation w/ patient, conversation w/ family (), physical exam, chart review, lab review, review of studies (echo), conversation w/ [facility] consultant (cardiology), review of inpatient medication list Pain: left ear fullness from wax buildup PO Intake: normal Voiding: no voiding problems tele stable overnight however, had sinus pause of nearly 5 seconds this afternoon; no symptoms denies dyspnea at rest or orthopnea no further dizzy spells since admission Problem List Medical Problems: (1) Congestive heart failure Status: Acute (2) Dehydration Status: Acute (3) Near syncope Status: Acute (4) Orthostatic hypotension Status: Acute (5) Substernal chest pain Status: Acute Review of Systems Constitutional: No fever Respiratory: No cough, No dyspnea at rest Cardiac: No chest pain, No orthopnea, No PND, No edema Abdomen: + constipation, No pain Objective Vital Signs Date Time Temp Pulse Resp B/P (MAP) Pulse Ox O2 Delivery O2 Flow Rate FiO2 07/22/17 16:00 Nasal Cannula 2.0 07/22/17 14:56 36.5 97 20 114/73 (87) 95 07/22/17 11:55 Nasal Cannula 2.0 07/22/17 11:52 36.4 87 20 127/86 (100) 97 Room Air 07/22/17 08:00 36.6 83 20 124/84 (97) 98 07/22/17 07:45 Nasal Cannula 2.0 07/22/17 04:00 36.6 81 18 121/77 (92) 96 2.0 07/22/17 04:00 Nasal Cannula 2.0 07/22/17 00:28 36.5 104 18 121/59 (79) 91 2.0 07/22/17 00:00 Nasal Cannula 2.0 07/21/17 20:00 36.7 91 20 116/69 (85) 96 Room Air 91 96/62 (73) 94 93/60 (71) 07/21/17 20:00 Nasal Cannula 2.0 Physical Exam General Appearance: no apparent distress ENT: pharynx normal Neck: no JVD Respiratory/Chest: no respiratory distress, no accessory muscle use, + rales ( minimal - bases) Cardiovascular: regular rate, rhythm, no gallop, + systolic murmur (1/6 LSB) Abdomen: normal bowel sounds, non tender, soft, no organomegaly Extremities: no pedal edema Neurologic/Psychiatric: alert, oriented x 3 Skin: + pertinent finding (resolving hematoma right lateral aspect of distal leg) Laboratory Results Last 24 Hours Test 07/21/17 20:33 07/22/17 07:35 07/22/17 07:52 07/22/17 11:32 Bedside Glucose 158 mg/dl 130 mg/dl 177 mg/dl White Blood Count 8.80 K/uL Red Blood Count 4.35 M/uL Hemoglobin 11.7 g/dL Hematocrit 34.4 % Mean Corpuscular Volume 79.1 fL Mean Corpuscular Hemoglobin 26.9 pg Mean Corpuscular Hemoglobin Concent 34.0 g/dl RDW Standard Deviation 47.4 fL RDW Coefficient of Variation 16.4 % Platelet Count 315 K/uL Mean Platelet Volume 9.0 fL Sodium Level 136 mmol/L Potassium Level 3.3 mmol/L Chloride Level 97 mmol/L Carbon Dioxide Level 31 mmol/L Anion Gap 7.0 mmol/L Blood Urea Nitrogen 21 mg/dl Creatinine 1.10 mg/dl Est Creatinine Clear Calc Drug Dose 42.6 ml/min Estimated GFR () 68.6 Estimated GFR (Non- 59.2 BUN/Creatinine Ratio 18.9 Random Glucose 138 mg/dl Calcium Level 9.0 mg/dl Magnesium Level 2.1 mg/dl Test 07/22/17 16:28 Bedside Glucose 82 mg/dl Assessment and Plan 87yo male - 1. syncope/pre-syncope - due to sinus pauses/conduction disease? orthostasis? moderate-severe ? given the pause seen today EP evaluation requested. Pacemaker? 2. acute/chronic systolic CHF - approaching euvolemia - continue lasix IV. BMP am. 3. hypokalemia - supplement, repeat BMP am. 4. mod-severe - noted. Avoid excessive afterload reduction & over-diuresis. 5. pulmonary HTN - noted. 6. hypothyroidism - TSH compensated; continue synthroid same dose. 7. cerumen impaction - debrox BID then irrigation as outpatient. 8. T2DM - controlled. Cont current insulin regimen. 9. CAD - no ischemic symptoms at this time. 10. h/o stroke - noted. updated twice today Continued [facility] stay due to: multiple IV medications needed Discharge planning: halfway facility
[2017-07-22] MEDS: INSULIN GLARGINE SOLOSTAR 100 UNITS/ML 3 ML PEN SC SCH (20:46)
[2017-07-22] MEDS: ASPIRIN 81 MG ECTAB PO SCH (20:48)
[2017-07-22] MEDS: DOCUSATE SODIUM 100 MG CAP PO SCH (20:48)
[2017-07-22] MEDS: CARBAMIDE PEROXIDE 6.5% 15 ML BTL OT SCH (20:49)
[2017-07-22] MEDS: ATORVASTATIN 40 MG TAB PO SCH (20:50)
[2017-07-23] VITALS (15 sets, daily range): BP systolic 90–141; BP diastolic 57–85; PULSE 82–95; TEMP 33.6–36.6; O2SAT 93–100
[2017-07-23] MEDS: LEVOTHYROXINE 25 MCG TAB PO SCH (06:24)
[2017-07-23] MEDS: CARBAMIDE PEROXIDE 6.5% 15 ML BTL OT SCH ×2 (08:01→21:03)
[2017-07-23] MEDS: FUROSEMIDE INJ 40 MG in SYRINGE 0 ML IV SCH (08:01)
[2017-07-23] MEDS: CALCIUM 600MG + VIT D 400 IU TAB PO SCH ×2 (08:01→21:04)
[2017-07-23] MEDS: NITROGLYCERIN 0.2 MG/HR PATCH TD SCH (08:02)
[2017-07-23] MEDS: POTASSIUM CHLORIDE 20 MEQ TABCR PO SCH (08:02)
[2017-07-23] MEDS: ASCORBIC ACID 500 MG TAB PO SCH (08:02)
[2017-07-23] MEDS: CARVEDILOL 3.125 MG TAB PO SCH ×2 (08:02→21:04)
[2017-07-23] MEDS: LANSOPRAZOLE SOLUTAB 30 MG PO SCH (08:02)
[2017-07-23] MEDS: FINASTERIDE 5 MG TAB PO SCH (08:02)
[2017-07-23] MEDS: CEROVITE ADV FORMULA TAB PO SCH (08:02)
[2017-07-23] MEDS: CLOPIDOGREL BISULFATE 75 MG TAB PO SCH (08:02)
[2017-07-23] MEDS: INSULIN ASPART 100 UNITS/ML 3 ML PEN SC SCH ×4 (09:45→21:12)
[2017-07-23 10:15] LABS: BUN/CREATININE RATIO 19.3 (10-20); CALCIUM 9.3 mg/dl (8.5-10.1); CREATININE 1.1 mg/dl (0.60-1.40); POTASSIUM 4.2 mmol/L (3.5-5.1)
[2017-07-23] MEDS ORDERED: INFLUENZA ADMINISTRATION CHARGE ONE (10:45)
[2017-07-23] MEDS ORDERED: INFLUENZA VACCINE HIGH DOSE 65+ 0.5 ML SYR IM. ONE (10:45)
[2017-07-23] MEDS ORDERED: LIDOCAINE HCL 1% 20 ML VIAL ONE (12:14)
[2017-07-23] MEDS ORDERED: FENTANYL CITRATE INJ 50 MCG/1 ML 2 ML VIAL ONE (12:14)
[2017-07-23] MEDS ORDERED: MIDAZOLAM HCL 5 MG/ML 1 ML VIAL ONE (12:14)
[2017-07-23] MEDS ORDERED: BACITRACIN 50000 UNIT VIAL ONE (12:15)
[2017-07-23] MEDS ORDERED: BUPIVACAINE 0.5 % 5 MG/1 ML MPF 30ML VIAL ONE (12:15)
--- NOTE | 2017-07-23 12:33 | Procedure Note ---
Pre-Mod Sedation Assessment General Date of Moderate Sedation: Jul 23, 2017. Vital Signs: Vital Signs Past 12 Hours Date Time Temp Pulse Resp B/P (MAP) Pulse Ox O2 Delivery O2 Flow Rate FiO2 07/23/17 12:18 33.6 84 20 133/84 99 Nasal Cannula 2.0 07/23/17 11:50 Nasal Cannula 2.0 07/23/17 11:31 33.6 84 20 133/84 (100) 99 Nasal Cannula 07/23/17 09:24 100 Nasal Cannula 07/23/17 07:45 Nasal Cannula 2.0 07/23/17 07:25 36.6 93 20 128/76 (93) 100 Nasal Cannula 07/23/17 06:28 Nasal Cannula 2.0 07/23/17 04:25 36.5 82 18 117/70 (86) 98 Room Air 07/23/17 04:00 Nasal Cannula 2.0 Review Airway Class: III Pre-Sedation Airway Assessment Oral Cavity: Dental Abnormalities Able to Visualize Vocal Cords: No Short Thick Neck: No Hx of Sleep Apnea: No Smoking Status: Former Smoker Mallampati Classification: Class III ASA Classification: Class III Procedure Planning Contraindications-for Mod Sed: None Yes Notes The planned sedation has been discussed with the patient and consent obtained. I have identified the patient, determined the appropriateness of sedation and have assessed the patient immediately prior to the procedure. All medicine(s) and interventions are by my order.
[2017-07-23] MEDS ORDERED: CEFAZOLIN SOD 1 GM VIAL ONE (12:40)
--- NOTE | 2017-07-23 13:40 | Procedure Note ---
Procedure Note Date of Service Jul 23, 2017. Procedure Note Procedure performed: Implant of dual chamber ICD Staff Creative Lead: Hubert Le MD Indication: The patient is an 87-year-old gentleman with a history of an ischemic cardiomyopathy. He was also noted on telemetry to have complete heart block. He recently suffered a syncopal episode. He therefore appears to be a good candidate for permanent pacemaker due to symptomatic non reversible AV node dysfunction. An ICD was selected primarily because he also meets criteria for prophylaxis against sudden cardiac . He has an ejection fraction of 30 percent despite optimal medical therapy. He has not had any revascularization in the past 90 days nor suffered a myocardial infarction in the past 40 days. He has an anticipated longevity greater than 1 year. A dual- chamber device was selected as the patient will require pacing, is in a sinus rhythm we wish to maintain AV synchrony. Procedure in detail: The patient was informed of the risks benefits and alternatives to the intended procedure and she wished to proceed. He was taken to the electrophysiology suite in a fasting state. A preoperative antibiotic had been administered. The patient was monitored electrocardiographically throughout today's procedure and conscious sedation was administered per protocol. The left upper pectoral area is prepped and draped in usual sterile fashion. This area was anesthetized using subcutaneous menstruation of a xylocaine solution. An incision was made at this site and carried down to the prepectoralis fascia using sharp dissection. Electrocautery was also employed for dissection as well as for hemostasis. A device pocket was fashioned tissues above the pectoralis muscle. Subsequent to this maneuver the left axillary vein was accessed using modified Seldinger technique. Sheaths were placed over guidewires at this site and used to facilitate passage of the pacing leads to the respective chambers under fluoroscopic guidance. This included right atrial and right ventricular leads. Adequate sensing and threshold parameters were obtained prior to Active fixation of the leads to the endocardial surface. The proximal portion leads were then sutured the prepectoral fascia using nonabsorbable suture. The device pocket was irrigated with antibiotic solution. The leads were then attached to the device. The device and leads were then placed in the pocket and pocket was closed in 3 layers of absorbable suture. Steri-Strips and sterile dressing were applied. The device was tested noninvasively prior to conclusion of the procedure. The patient tolerated procedure well there no immediate complications. Equipment used: New pulse generator: Chief Lock Tender Operator [employer]. Model number DDD MB 1 D 4. Serial number [id number] Right atrial lead: Chief Lock Tender Operator [employer]. Model number 4076 Serial number: [id number] Right ventricular lead: Chief Lock Tender Operator [employer]. Model number 6947M Serial number: [id number] Measured data: Right atrial lead: P-waves measured 2.8 millivolts. Pacing threshold was 0.9 volts at 0.4 milliseconds with a pacing impedance of 535 Ohms Right ventricular lead: R waves measured 18.6 millivolts. Pacing threshold was 0.5 volts at 0.4 milliseconds with a pacing impedance of 782 Ohms Impression: Successful implantation of dual-chamber ICD
--- NOTE | 2017-07-23 17:29 | Cardiology Consultation ---
Cardiology Consultation Date of Consultation: Jul 23, 2017. Requesting Physician: Alonso Reason for Consultation: Heart Block History of Present Illness Patient is an 87-year-old gentleman with an extensive history of cardiac disease to include both ischemic heart disease and valvular heart disease. He was admitted to [facility] after an episode of syncope. The patient provided some of the history and supplemental history was provided by his was present during today's interview. It seems he uses a walker at home for ambulation. He does recall falling to the ground suddenly while walking 1 day. This did not involve any prodrome or sense of palpitation. Afterwards he seemed to feel fairly well and was able to continue with his activity. His reports similar episodes occurring recently where he lost consciousness. Additionally, the patient has been complaining of some dizziness and lightheadedness recently. It seems he has a fairly sedentary individual who is able to ambulate around his residence. He does not perform much other physical activity. He does have a history of exertional angina, especially after eating meals. He is not seem to have the symptoms at rest. Once again he is not aware of any palpitations. He denies significant breathing difficulty currently. He has not report significant orthopnea or paroxysmal nocturnal dyspnea. Past Medical/Surgical History Coronary artery disease Aortic stenosis, moderate Hypertension Hyperlipidemia Diabetes mellitus Mild dementia Sleep apnea Ischemic cardiomyopathy Hypothyroidism Esophageal reflux disease Benign prostatic hypertrophy Herpes zoster Past surgical history Coronary artery bypass grafting in 1981 and 1995 Cataract surgery Hemorrhoidectomy Inguinal hernia repair Lumbar laminectomy Pilonidal cyst resection Tonsillectomy and adenoidectomy Family History Diabetes mellitus Heart disease Hypertension Noncontributory given his advanced age Social History Smoking Status: Former Smoker History of Alcohol Use: No Currently visit home his Review of Systems Respiratory: No cough, No dyspnea at rest Cardiac: No chest pain, No orthopnea, No PND, No edema All Other Systems: Reviewed and Negative Allergies Coded Allergies: Iodine (Verified Allergy, Mild, 07/18/17) Iodinated Diagnostic Agents (Verified Allergy, Unknown, UNKNOWN, 07/18/17) Ranolazine (Unverified Allergy, Unknown, unknown, 07/18/17) Yellow Dye (Unverified Allergy, Unknown, unknown, 07/18/17) Medications Current Inpatient Medications Medications (Trade) Dose Ordered Sig/Zachariah Route Start Time Stop Time Status Last Admin Dose Admin Acetaminophen (Tylenol Tab) 650 mg Q4H PRN PO 10/7/17 17:15 08/17/17 17:14 Magnesium Hydroxide (Milk Of Magnesia Susp) 30 ml Q12H PRN PO 07/18/17 17:15 08/17/17 17:14 07/22/17 08:45 30 ML Ondansetron HCl (Zofran Inj) 4 mg Q6H PRN IV 07/18/17 17:15 08/17/17 17:14 Insulin Aspart (novoLOG ASPART) SLIDING SCALE If C... ACHS SC 07/18/17 21:00 08/17/17 20:59 07/23/17 09:45 2 UNITS Glucose (Glucose 40% Gel) 15-30 GRAMS 15 GRAMS... UD PRN PO 07/18/17 17:15 08/17/17 17:14 Glucose (Glucose Chew Tab) 4-8 Tablets 4 Tabl... UD PRN PO 07/18/17 17:15 08/17/17 17:14 Dextrose (Dextrose 50% 50ML Syringe) 25-50ML OF 50% DW IV FOR... UD PRN IV 07/18/17 17:15 08/17/17 17:14 Glucagon (Glucagon Inj) 1 mg UD PRN SQ 07/18/17 17:15 08/17/17 17:14 Ascorbic Acid (Vitamin C Tab) 500 mg QAM PO 07/19/17 09:00 08/18/17 08:59 07/23/17 08:02 500 MG Aspirin (Ecotrin Tab) 81 mg HS PO 07/18/17 21:00 08/17/17 20:59 07/22/17 20:48 81 MG Atorvastatin Calcium (Lipitor Tab) 80 mg HS PO 07/18/17 21:00 08/17/17 20:59 07/22/17 20:50 80 MG Calcium/Vitamin D (Caltrate Plus Tab) 1 tab BID PO 07/18/17 21:00 08/17/17 20:59 07/23/17 08:01 1 TAB Clopidogrel Bisulfate (plAVix TAB) 75 mg QAM PO 07/19/17 09:00 08/18/17 08:59 07/23/17 08:02 75 MG Docusate Sodium (coLACE CAP) 100 mg HS PO 10/7/17 21:00 08/17/17 20:59 07/22/17 20:48 100 MG Insulin Glargine (Lantus Solostar Pen) 18 units HS SC 07/18/17 21:00 08/17/17 20:59 07/22/17 20:46 18 UNITS Levothyroxine Sodium (Synthroid Tab) 25 mcg DAILYBB PO 07/19/17 06:30 08/18/17 06:29 07/23/17 06:24 25 MCG Multivitamins/ Minerals (Multivitamin W/ Minerals Tab) 1 tab QAM PO 07/19/17 09:00 08/18/17 08:59 07/23/17 08:02 1 TAB Nitroglycerin (Nitro-Dur 0.2 Mg/Hr Patch) 1 patch QAM TD 07/19/17 09:00 08/18/17 08:59 07/23/17 08:02 1 PATCH Nitroglycerin (Nitrolingual Mabie) 1 sprays UD PRN SL 07/18/17 17:15 08/17/17 17:14 Lansoprazole (Prevacid Solutab) 30 mg QAM PO 07/19/17 09:00 08/18/17 08:59 07/23/17 08:02 30 MG Miscellaneous (Remove Nitro-Dur Patch) 1 ea DAILY@21 N/A 07/18/17 21:00 08/17/17 20:59 07/22/17 20:49 1 EA Carvedilol (Coreg Tab) 3.125 mg BID PO 07/20/17 21:00 08/19/17 20:59 07/23/17 08:02 3.125 MG Finasteride (Proscar Tab) 5 mg QAM PO 07/21/17 09:00 08/20/17 08:59 07/23/17 08:02 5 MG Carbamide Peroxide (Earwax Removal Soln) 5 drops BID OT 07/22/17 19:00 07/26/17 18:59 07/23/17 08:01 5 DROPS Potassium Chloride (Klor-Con Tab) 40 meq QAM PO 07/24/17 09:00 08/21/17 09:29 Cefazolin Sodium 1000 mg/Dextrose 55 ml @ 100 mls/hr Q8H IV 07/23/17 20:00 07/24/17 04:32 Physical Exam Vital Signs Past 12 Hours Date Time Temp Pulse Resp B/P (MAP) Pulse Ox O2 Delivery O2 Flow Rate FiO2 07/23/17 16:38 36.5 95 16 107/60 (76) 95 Nasal Cannula 3.0 07/23/17 15:00 36.4 93 16 97/70 (79) 98 Nasal Cannula 3.0 07/23/17 14:45 82 16 96/57 (70) 97 Nasal Cannula 3.0 07/23/17 14:28 88 18 106/83 (91) 93 Nasal Cannula 3.0 07/23/17 14:15 88 90/61 (71) 94 Nasal Cannula 3.0 07/23/17 14:05 94/71 (79) 07/23/17 14:00 36.3 85 20 113/85 (94) 93 Nasal Cannula 2.0 07/23/17 13:44 84 16 127/83 (98) 99 Nasal Cannula 3 07/23/17 13:30 82 16 97/62 (74) 99 Nasal Cannula 3 07/23/17 12:18 33.6 84 20 133/84 99 Nasal Cannula 2.0 07/23/17 11:50 Nasal Cannula 2.0 07/23/17 11:31 33.6 84 20 133/84 (100) 99 Nasal Cannula 07/23/17 09:24 100 Nasal Cannula 07/23/17 07:45 Nasal Cannula 2.0 07/23/17 07:25 36.6 93 20 128/76 (93) 100 Nasal Cannula 07/23/17 06:28 Nasal Cannula 2.0 The patient is alert and oriented. Mood and affect appeared normal. He answered all questions appropriately. HEENT: Pupils are equal and reactive to light and accommodation. Extraocular movements are intact. The sclerae are anicteric. Neuro: Cranial nerves intact Neck: Patient's neck is supple. He has palpable carotid pulses bilaterally without bruits on auscultation. There is no evidence of jugular venous distention. The thyroid is not enlarged. Lungs: Clear to auscultation bilaterally. He has good air movement without use of accessory muscles. No rales wheezes or rhonchi. Cardiac: Heart demonstrates a regular rate and rhythm. Normal S1 and S2. Crescendo systolic murmur. Pulses: The patient has palpable radial pulses bilaterally that are equal in intensity Extremities: There was no evidence of hypoperfusion. There is no cyanosis or clubbing. He did have an ecchymosis and small hematoma on the right tibia area Skin: I did not appreciate any rashes on examination today. Data Laboratory Results: Last 24 Hours Test 07/22/17 20:14 07/23/17 07:21 07/23/17 09:36 07/23/17 11:27 Bedside Glucose 92 mg/dl 148 mg/dl 179 mg/dl Sodium Level 133 mmol/L Potassium Level 4.2 mmol/L Chloride Level 96 mmol/L Carbon Dioxide Level 31 mmol/L Anion Gap 5.0 mmol/L Blood Urea Nitrogen 21 mg/dl Creatinine 1.10 mg/dl Est Creatinine Clear Calc Drug Dose 42.6 ml/min Estimated GFR () 68.6 Estimated GFR (Non- 59.2 BUN/Creatinine Ratio 19.3 Random Glucose 184 mg/dl Calcium Level 9.3 mg/dl Iron Level 66 mcg/dl Total Iron Binding Capacity 188 mcg/dl Transferrin 144 mg/dl Transferrin % Saturation 33 % Ferritin 454.0 ng/ml Test 07/23/17 16:24 Bedside Glucose 215 mg/dl Imaging: Chest x-ray the time of admission suggesting an element of pulmonary vascular congestion. Carotid Dopplers did not reveal any obstructive disease EKG: Sinus rhythm with first-degree AV block and nonspecific interventricular conduction delay Telemetry reviewed: Episodes of complete heart block Assessment & Plan 1. Syncope: Patient has several potential etiologies for his syncope but the most likely appears to be intermittent heart block. This would be consistent with a sudden fall or loss of postural tone followed by a normal recovery. He did not appear to have any prodrome or sense of palpitation leading up to the event. He appeared to be quite functional afterwards which is less suggestive of high vagal tone. He does have an element of aortic stenosis but this is not severe. He has a history of orthostatic hypotension as well. With his degree of LV dysfunction he is also a risk of malignant ventricular arrhythmias. It is quite clear that with his symptoms and conduction disease he will require a pacemaker. I did discuss this option with the patient and his today. We also discussed the potential for implantation of a defibrillator given his reduced LV systolic function. The patient and his wish to have protection against sudden cardiac and this seems reasonable given his his most recent echo findings. He is at risk of sudden cardiac based on his reduced LV function and has no reasonable options for any revascularization. He is on optimal medical therapy otherwise, with the exception of beta-blockade which has been reduced in the setting of his conduction disease. I did contemplate the option of adding a left ventricular lead to the system based on his conduction disease. However, this would add some complexity to the procedure and is unclear whether he would have significant gain at this point. He does not have a classic left bundle pattern. He is fairly sedentary overall in the think we can continue with his medical therapy and monitor his symptoms over time to determine if he would benefit from an LV lead. I do not think he will have a lot of right ventricular pacing based on his telemetry monitoring here in the hospital. Most of the time he has intact conduction and only periodically will developed the AV block. I had a long discussion with the patient, his and son and we discussed the risks benefits and alternatives. He is willing to proceed and we will plan on the procedure later today.
[2017-07-23] MEDS: CEFAZOLIN IV 1,000 MG in DEXTROSE 5% 50ML 50 ML IV SCH (21:03)
[2017-07-23] MEDS: DOCUSATE SODIUM 100 MG CAP PO SCH (21:04)
[2017-07-23] MEDS: ATORVASTATIN 40 MG TAB PO SCH (21:04)
[2017-07-23] MEDS: ASPIRIN 81 MG ECTAB PO SCH (21:04)
[2017-07-23] MEDS: INSULIN GLARGINE SOLOSTAR 100 UNITS/ML 3 ML PEN SC SCH (21:13)
[2017-07-24 00:25] VITALS: BP 131/81; PULSE 97; TEMP 36.9; O2SAT 97
--- NOTE | 2017-07-24 01:03 | Progress Note ---
Subjective Date of Service: late entry for visit Jul 23, 2017. Subjective Pt evaluation today including: conversation w/ patient, conversation w/ family (son and at bedside), physical exam, chart review, lab review, conversation w/ solar energy consultant and designer (cardiology ), review of inpatient medication list Pain: none PO Intake: npo for pacer insertion Voiding: no voiding problems tele overnight - sinus pause, about 5 seconds, on one occasion he denies any dyspnea, orthopnea, or chest pain this am he is willing to proceed with pacer placement Problem List Medical Problems: (1) Congestive heart failure Status: Acute (2) Dehydration Status: Acute (3) Near syncope Status: Acute (4) Orthostatic hypotension Status: Acute (5) Substernal chest pain Status: Acute Review of Systems Constitutional: No fever Respiratory: No cough, No sputum, No wheezing, No shortness of breath Cardiac: No chest pain, No orthopnea, No PND Abdomen: No pain Objective Vital Signs Date Time Temp Pulse Resp B/P (MAP) Pulse Ox O2 Delivery O2 Flow Rate FiO2 07/23/17 20:43 36.6 94 16 141/82 (101) 97 Nasal Cannula 2.0 07/23/17 20:00 Nasal Cannula 3.0 07/23/17 16:38 36.5 95 16 107/60 (76) 95 Nasal Cannula 3.0 07/23/17 16:00 Nasal Cannula 2.0 07/23/17 15:00 36.4 93 16 97/70 (79) 98 Nasal Cannula 3.0 07/23/17 14:45 82 16 96/57 (70) 97 Nasal Cannula 3.0 07/23/17 14:28 88 18 106/83 (91) 93 Nasal Cannula 3.0 07/23/17 14:15 88 90/61 (71) 94 Nasal Cannula 3.0 07/23/17 14:05 94/71 (79) 07/23/17 14:00 36.3 85 20 113/85 (94) 93 Nasal Cannula 2.0 07/23/17 13:44 84 16 127/83 (98) 99 Nasal Cannula 3 07/23/17 13:30 82 16 97/62 (74) 99 Nasal Cannula 3 07/23/17 12:18 33.6 84 20 133/84 99 Nasal Cannula 2.0 07/23/17 11:50 Nasal Cannula 2.0 07/23/17 11:31 33.6 84 20 133/84 (100) 99 Nasal Cannula 07/23/17 09:24 100 Nasal Cannula 07/23/17 07:45 Nasal Cannula 2.0 07/23/17 07:25 36.6 93 20 128/76 (93) 100 Nasal Cannula 07/23/17 06:28 Nasal Cannula 2.0 07/23/17 04:25 36.5 82 18 117/70 (86) 98 Room Air 07/23/17 04:00 Nasal Cannula 2.0 Physical Exam General Appearance: no apparent distress ENT: pharynx normal Neck: no JVD Respiratory/Chest: lungs clear, no respiratory distress, no accessory muscle use Cardiovascular: regular rate, rhythm, no gallop, + systolic murmur Abdomen: normal bowel sounds, non tender, soft, no organomegaly Extremities: no pedal edema Neurologic/Psychiatric: alert, oriented x 3 Laboratory Results Last 24 Hours Test 07/23/17 07:21 07/23/17 09:36 07/23/17 11:27 07/23/17 16:24 Bedside Glucose 148 mg/dl 179 mg/dl 215 mg/dl Sodium Level 133 mmol/L Potassium Level 4.2 mmol/L Chloride Level 96 mmol/L Carbon Dioxide Level 31 mmol/L Anion Gap 5.0 mmol/L Blood Urea Nitrogen 21 mg/dl Creatinine 1.10 mg/dl Est Creatinine Clear Calc Drug Dose 42.6 ml/min Estimated GFR () 68.6 Estimated GFR (Non- 59.2 BUN/Creatinine Ratio 19.3 Random Glucose 184 mg/dl Calcium Level 9.3 mg/dl Iron Level 66 mcg/dl Total Iron Binding Capacity 188 mcg/dl Transferrin 144 mg/dl Transferrin % Saturation 33 % Ferritin 454.0 ng/ml Test 07/23/17 21:07 Bedside Glucose 187 mg/dl Assessment and Plan 87yo male - 1. syncope/pre-syncope - due to sinus pauses/conduction disease? orthostasis? moderate-severe ? possibly combination of these issues. however, given the pause seen on telemetry, pacer placement is indicated Dr. Le to place permanent AICD/pacer today 2. acute/chronic systolic CHF - appears euvolemic; stop IV lasix 3. hypokalemia - resolved. 4. mod-severe - noted. Avoid excessive afterload reduction & over-diuresis. 5. pulmonary HTN - noted. 2-step o2 test at discharge. 6. hypothyroidism - TSH compensated; continue synthroid same dose. 7. cerumen impaction - debrox BID then irrigation as outpatient. 8. T2DM - controlled. Cont current insulin regimen. 9. CAD - no ischemic symptoms at this time. 10. h/o stroke - noted. /son updated dispo - SNF Continued [facility] stay due to: multiple IV medications needed Discharge planning: nursing home facility
[2017-07-24] MEDS: CEFAZOLIN IV 1,000 MG in DEXTROSE 5% 50ML 50 ML IV SCH (03:49)
[2017-07-24 03:53] VITALS: BP 133/71; PULSE 91; TEMP 36.7; O2SAT 100
[2017-07-24 04:00] VITALS: O2SAT 97
[2017-07-24] MEDS: LEVOTHYROXINE 25 MCG TAB PO SCH (05:46)
[2017-07-24] MEDS ORDERED: CEFAZOLIN SOD 1000MG/55 ML D5W IV SCH (06:00)
--- NOTE | 2017-07-24 07:00 | DIAGNOSTIC IMAGING REPORT ---
CHEST 2 VIEWS ROUTINE CLINICAL HISTORY: Pacemaker insertion. COMPARISON STUDY: Chest radiograph July 18, 2017. FINDINGS: There has been interval placement of a dual lead left subclavian pacer/AICD. No pneumothorax is present. There are median sternotomy wires, mediastinal surgical clips and a suspected epicardial pacer leads. Diffuse interstitial thickening is present. Slight improvement is noted since prior exam. IMPRESSION: 1. No pneumothorax following placement of a dual lead left subclavian pacer/AICD. 2. Slight improvement in diffuse interstitial thickening which may reflect mild pulmonary edema superimposed upon interstitial lung disease. Electronically signed by: Azeem Watts M.D. 07/24/2017 6:59 AM Dictated Date/Time: 07/24/2017 6:57 AM
[2017-07-24] MEDS: CARVEDILOL 3.125 MG TAB PO SCH (07:53)
[2017-07-24] MEDS: CALCIUM 600MG + VIT D 400 IU TAB PO SCH (07:53)
[2017-07-24] MEDS: CARBAMIDE PEROXIDE 6.5% 15 ML BTL OT SCH (07:53)
[2017-07-24] MEDS: ASCORBIC ACID 500 MG TAB PO SCH (07:53)
[2017-07-24] MEDS: INSULIN ASPART 100 UNITS/ML 3 ML PEN SC SCH ×2 (07:57→12:28)
[2017-07-24 08:12] VITALS: BP 140/70; PULSE 90; TEMP 36.3; O2SAT 97
[2017-07-24 08:50] LABS: MEAN CELL VOLUME 79.9 fL (80-100); MEAN CORPUSCULAR HGB CONC 33.8 g/dl (32-36); MEAN PLATELET VOLUME 9.6 fL (7.4-10.4); PLATELET COUNT 369 K/uL (130-400); RED BLOOD COUNT 4.63 M/uL (4.7-6.1); WHITE BLOOD COUNT 10.07 K/uL (4.8-10.8)
[2017-07-24] MEDS ORDERED: POTASSIUM CHLORIDE 20 MEQ TABCR PO SCH (09:00)
[2017-07-24 09:22] LABS: BUN/CREATININE RATIO 19.8 (10-20); CALCIUM 9.1 mg/dl (8.5-10.1); CREATININE 1.2 mg/dl (0.60-1.40)
[2017-07-24] MEDS ORDERED: METOPROLOL SUCC 50MG EXT REL TAB PO ONE (09:30)
[2017-07-24] MEDS: CEROVITE ADV FORMULA TAB PO SCH (09:38)
[2017-07-24] MEDS: FINASTERIDE 5 MG TAB PO SCH (09:38)
[2017-07-24] MEDS: NITROGLYCERIN 0.2 MG/HR PATCH TD SCH (09:39)
[2017-07-24] MEDS: CLOPIDOGREL BISULFATE 75 MG TAB PO SCH (09:39)
[2017-07-24] MEDS: LANSOPRAZOLE SOLUTAB 30 MG PO SCH (09:39)
--- NOTE | 2017-07-24 09:55 | CARDIOLOGY PROGRESS NOTE ---
DATE: 07/24/2017 HISTORY OF PRESENT ILLNESS: The patient was seen by me this morning in his telemetry unit room. He underwent placement of a dual-chamber pacemaker/ICD yesterday by Dr. Hubert Le. On the evening of July 22, he had been noted to have an episode of complete heart block. Because of this, a permanent pacemaker was indicated. In light of the recent decrease in his LV systolic function and an LV ejection fraction less than 35%, an ICD implant was also indicated. The patient this morning states he has only mild discomfort in his left pectoral generator site. He denies any lightheadedness or syncope. No chest pain. No dyspnea overnight. No current dyspnea. He does complain of difficulty in sleeping. No abdominal pain or nausea. No complaints of any leg pain. No fevers or chills. MEDICATIONS: This morning were potassium 40 mEq daily, finasteride 5 mg q.a.m., carbamide peroxide 5 drops b.i.d., carvedilol 3.125 mg b.i.d., vitamin C 500 mg daily, clopidogrel 75 mg daily, multivitamin 1 daily, nitroglycerin patch 0.2 mg per hour 1 patch daily, Prevacid 30 mg daily, levothyroxine 25 mcg daily, NovoLog sliding scale insulin, aspirin 81 mg daily, atorvastatin 80 mg at bedtime, vitamin D with calcium 1 tab b.i.d., docusate sodium 100 mg at bedtime, Lantus insulin 18 units subQ at bedtime, and several p.r.n. medications. He had been on furosemide 40 mg IV. Last dose was administered yesterday morning. ALLERGIES AND ADVERSE DRUG REACTIONS: IODINATED CONTRAST DYE, RANOLAZINE, AND YELLOW DYE. Monitor reviewed by me. Sinus rhythm and sinus tachycardia. First degree atrioventricular block. Intraventricular conduction delay. PHYSICAL EXAMINATION: VITAL SIGNS: This morning with oral temperature 36.2, pulse 90, blood pressure 140/70, and pulse oximetry 97%. GENERAL: He is sitting at the side of his bed. No distress. NECK: No jugular venous distention in upright. LUNGS: Decreased breath sounds at both bases. Rales at both bases. There is also a "squeaky" sound at both bases. HEART: Increased rate. Regular rhythm. Diminished aortic valvular closing sound. A 2/6 systolic murmur at the second intercostal space and left sternal border. No diastolic murmur or rub heard. No S3 heard. ABDOMEN: Soft. Nontender. No palpable masses or organomegaly. CHEST WALL: Left pectoral pacemaker/ICD generator site without hematoma. Slightly tender to palpation. No erythema. EXTREMITIES: No pretibial edema. NEUROLOGIC: The patient is alert and oriented x3. He does have short term memory loss. DIAGNOSTIC STUDIES: Chest x-ray performed this morning and reviewed by me shows pacemaker/ICD. No pneumothorax. The leads appear to be in proper position. Diffuse interstitial lung disease. Improved congestion compared to chest x-ray performed earlier on this admission. No conclusive evidence of atelectasis. No pleural effusions noted. LABORATORY DATA: Today with WBC 10.07, hemoglobin 12.5, hematocrit 37.0, and platelet count 369. Metabolic profile is pending. Today's weight 65.1 kg. Yesterday's weight 67 kg. Yesterday's weight was on a standing scale. Today's weight is on a different scale. It was performed with a built-in bed scale. Thus, weight from yesterday and today were performed on different scales. ASSESSMENT: 1. Longstanding history of coronary artery disease. CABG surgeries in 1981 and 1995. Status post left main and left circumflex stent in 2006. The patient at baseline has at least class 2 angina. No current anginal symptoms. 2. Longstanding history of postural lightheadedness. 3. Reports of near syncope or syncope at the time of admission. This is by his . 4. Documentation of complete heart block on the evening of July 22. Subsequent implantation of dual chamber pacemaker yesterday. No evidence of any complications from pacemaker insertion thus far. Chest x-ray without pneumothorax. No hematoma at the generator site. 5. Increased heart rate. At the time of admission, the patient was on metoprolol succinate ER 100 mg b.i.d. This was discontinued. This morning, he was on carvedilol 3.125 mg b.i.d. The patient had been on the higher doses of metoprolol to help control his heart rate and did help control his anginal symptoms. 6. Prerenal azotemia yesterday. 7. On exam, he has bibasilar rales. This could be secondary to either his interstitial lung disease and/or heart failure. RECOMMENDATIONS: 1. Discontinue carvedilol. It will be difficult to control his heart rate with increase in carvedilol dose without risk of low blood pressures. In the past, the patient's medical therapy has been complicated by low blood pressures. This has required multiple changes in medications and doses over the past several years. We will discontinue carvedilol this morning. Restart metoprolol succinate ER 100 mg daily. He had been on 100 mg b.i.d. at the time of admission. 2. Await PRP today. 3. Increase ambulation as tolerated. 4. Continue dual antiplatelet therapy with aspirin and clopidogrel. 5. Continue topical nitrates. 6. If his blood pressure remains stable, would consider an angiotensin receptor sally or ANG inhibitor. However, we will need to start at a low dose in light of his prior history of significant postural lightheadedness and orthostatic hypotension.
--- NOTE | 2017-07-24 10:50 | Cardiology Follow-Up ---
Subjective Date of Service: Jul 24, 2017. Pt evaluation today including: conversation w/ patient, physical exam, chart review, lab review, review of studies History of Present Illness This morning the patient reports some mild discomfort at the implant site. This is fairly mild in nature. It occurs mostly with palpation of the device. He denies any significant breathing trouble. Denies pain at other locations. Social History Smoking Status: Former Smoker History of Alcohol Use: No Review of Systems Respiratory: No cough, No sputum, No wheezing, No shortness of breath Cardiac: No chest pain, No orthopnea, No PND Objective Vital Signs Past 12 Hours Date Time Temp Pulse Resp B/P (MAP) Pulse Ox O2 Delivery O2 Flow Rate FiO2 07/24/17 08:12 36.3 90 20 140/70 (93) 97 07/24/17 08:00 Nasal Cannula 2.0 07/24/17 04:00 97 Nasal Cannula 2.0 07/24/17 03:53 36.7 91 21 133/71 (91) 100 Nasal Cannula 3.0 07/24/17 00:25 36.9 97 21 131/81 (98) 97 Nasal Cannula 4.0 07/23/17 23:59 97 Nasal Cannula 2.0 Last Recorded Weight-Kilograms: 65.100 Physical Exam The patient is alert and oriented. Mood and affect appeared normal. He answered all questions appropriately. HEENT: Pupils are equal and reactive to light and accommodation. Extraocular movements are intact. The sclerae are anicteric. Neuro: Cranial nerves intact Chest: The implant site appears clean dry and intact. There is some ecchymosis around the implant. There is no drainage. There is no hematoma.. Data Laboratory Results: Last 24 Hours Test 07/23/17 11:27 07/23/17 16:24 07/23/17 21:07 07/24/17 06:45 Bedside Glucose 179 mg/dl 215 mg/dl 187 mg/dl 127 mg/dl Test 07/24/17 08:03 White Blood Count 10.07 K/uL Red Blood Count 4.63 M/uL Hemoglobin 12.5 g/dL Hematocrit 37.0 % Mean Corpuscular Volume 79.9 fL Mean Corpuscular Hemoglobin 27.0 pg Mean Corpuscular Hemoglobin Concent 33.8 g/dl RDW Standard Deviation 48.6 fL RDW Coefficient of Variation 16.7 % Platelet Count 369 K/uL Mean Platelet Volume 9.6 fL Sodium Level 135 mmol/L Potassium Level 4.0 mmol/L Chloride Level 97 mmol/L Carbon Dioxide Level 31 mmol/L Anion Gap 7.0 mmol/L Blood Urea Nitrogen 24 mg/dl Creatinine 1.20 mg/dl Est Creatinine Clear Calc Drug Dose 38.4 ml/min Estimated GFR () 61.8 Estimated GFR (Non- 53.3 BUN/Creatinine Ratio 19.8 Random Glucose 167 mg/dl Calcium Level 9.1 mg/dl Imaging: Chest x-ray demonstrates adequate lead position. There is no pneumothorax. I performed a complete device interrogation. He has normal function of both the atrial and ventricular leads. Telemetry reviewed: Sinus tachycardia. No significant pacing Assessment and Plan 1. Syncope: Status post successful implantation of dual-chamber ICD yesterday. He had only intermittent heart block, and has not been pacing at all since implant. He has reduced LV systolic function and would benefit from a low percentage of ventricular pacing. We elected not to add an LV lead due to few symptoms of heart failure in the hopes that he will not require much ventricular pacing. There is not appear to be any complication from the procedure. He can be continued on his usual medications. Recommendations regarding post operative management include keeping the wound dry until follow- up next week in the cardiology clinic and refrain from lifting left arm above the head or behind the shoulder for 6 weeks.
[2017-07-24 11:34] VITALS: BP 105/60; PULSE 90; TEMP 36.6; O2SAT 97
[2017-07-24] MEDS ORDERED: CARB1SOL9 OT (12:44)
[2017-07-24] MEDS ORDERED: NVLGIPEN SC (12:44)
[2017-07-24] MEDS ORDERED: HYDR-5688 PO (12:44)
[2017-07-24] MEDS ORDERED: INSDGI SC (12:44)
[2017-07-24] MEDS ORDERED: IPRA1AER2 INH (12:44)
[2017-07-24] MEDS ORDERED: PRS5 PO (12:44)
[2017-07-24] MEDS ORDERED: NITR0.4S76 PO (12:44)
[2017-07-24] MEDS ORDERED: METO1TAB69 PO (12:44)
[2017-07-24 12:50] VITALS: BP 105/60; PULSE 90; TEMP 36.6; O2SAT 97
--- NOTE | 2017-07-24 12:52 | Discharge Instructions ---
Discharge Instructions Date of Service Jul 24, 2017. Admission Reason for Admission: Congestive Heart Failure; Orthostastic Hypotension Discharge Discharge Diagnosis / Problem: Congestive Heart Failure, Sinus pause leading to pacemaker insertion Discharge Goals Goal(s): Learn about illness, Diagnostic testing, Therapeutic intervention Activity Recommendations Activity Level: Assistance Required Therapies: Physical Therapy, Occupational Therapy ACTIVITY RECOMMENDATIONS: * Do not raise the LEFT arm over the head or behind the LEFT shoulder for 6 weeks. SPECIAL CARE INSTRUCTIONS: * If bleeding occurs, apply direct pressure to area for 5 minutes. * Call your doctor if you have severe pain, fever, drainage or bleeding at site. * Keep dressing on and dry for 48 hours then remove. * Keep any scheduled doctor's appointment. * Implant Card - hand held device with website information given. * OK to shower at this time but keep the pacemaker insertion site covered, clean, and dry during the shower. SKIN IRRITATION: * You may experience some redness and/or swelling in the area where radiation was administered. If any skin irritation occurs, please contact your family physician. FOLLOW UP VISIT: Keep any scheduled doctor appointments. . Additional Information Patient informed of condition: Yes Advance Directives: Yes DNR: No Level of Care: Skilled Communicable Disease: No Prognosis: Stable Oxygen at (LPM): 2 liters at bedtime and with naps King Catheter: No Instructions / Follow-Up Instructions / Follow-Up Follow-up appointments: 1. please see medical translator of [facility] within 48 hours of admission. 2. please see Dr. Hubert Le, cardiology at [facility], within 1 week for pacemaker/incision check. 3. see Dr. Ronald Gupta, cardiology at [facility], within 1-2 weeks as well. Prior to discharge from [facility] please perform a walking oxygen test ( "two step") to assess if patient needs ambulatory oxygen with activities/ walking. Current Hospital Diet Patient's current hospital diet: Diabetes Type 2 Diet, AHA Diet (Heart Healthy) Discharge Diet Recommended Diet: AHA Diet (Heart Healthy), Diabetes Type 2 Diet Fluid Restriction: 1500 ml (6 cups) Procedures Procedures Performed: Echocardiogram showing EF of 25-30%; mod-severe aortic stenosis. Pacemaker/defibrillator insertion - Dr. Hubert Le. Pending Studies Studies pending at discharge: no Physician Orders On Transfer Special Precautions: as noted above in activity restrictions regarding left arm. keep pacemaker insertion site clean/dry. Dressing Changes: see instructions above regarding pacemaker site. Vital Signs: daily including O2 sats fingerstick blood sugar checks before meals and at bedtime Weigh: EVERY MORNING ON STANDING SCALE. please report any weight gain of more than 2-3 pounds in 1-2 days to the medical translator right away. Additional Orders: BMP, Magnesium in 3-4 days for stability. POLST Discussion: Not Applicable Laboratory Results Hemoglobin A1c Test 07/19/17 07:21 Range/Units Estimated Average Glucose 200 mg/dl Hemoglobin A1c 8.6 H 4.5-5.6 % Lipid Panel Test 04/25/17 07:43 Range/Units Triglycerides Level 75 0-150 mg/dl Cholesterol Level 103 0-200 mg/dl HDL Cholesterol 43 mg/dl Cholesterol/HDL Ratio 2.4 LDL Cholesterol, Calculated 45 mg/dl Medical Emergencies . Who to Call and When: Medical Emergencies: If at any time you feel your situation is an emergency, please call 911 immediately. . Non-Emergent Contact Non-Emergency issues call your: Tobacco Stemmer Machine Call Non-Emergent contact if: temperature is above 100.5, your pain is not controlled, your pain is worsening, your pain is unusual for you, your pain is concerning you, wound has increased drainage, wound has increased redness, wound has increased pain, you have any medication questions . . "Provider Documentation" section prepared by Arsenio Cannon. . Core Measure Problem Core Measures: None
[2017-07-24] MEDS ORDERED: IPRATROPIUM BROMIDE/ALBUTEROL respimat INH INH SCH (13:00)
[2017-07-25] MEDS ORDERED: METOPROLOL SUCC 50MG EXT REL TAB PO SCH (09:00)
--- NOTE | 2017-07-28 22:29 | Discharge Summary ---
Discharge Summary Date of Service Jul 28, 2017. Discharge Summary Admission Date: Jul 18, 2017 at 17:13 Discharge Date: Jul 24, 2017 Discharge Disposition[facility] ) Principal Diagnosis: syncope/near-syncope Problems/Secondary Diagnoses: 1. ACID/pacemaker implantation - Dr. Hubert Le 2. acute/chronic systolic CHF 3. hypokalemia - resolved 4. mod-severe Aortic stenosis 5. pulmonary HTN 6. hypothyroidism 7. cerumen impaction 8. T2DM 9. CAD 10. h/o stroke 11. CKD stage 3 12. question of interstitial lung disease/pulmonary fibrosis Immunizations: History of Tetanus Vaccine?: Unknown History of Pneumococcal: Yes History of Hepatitis B Vaccine: No Procedures: 1. echocardiogram: -- Conclusions -- The left ventricle is mildly dilated. Left ventricular systolic function is severely reduced. EF 25-30%. Grade I diastolic dysfunction, (abnormal relaxation pattern). There are regional wall motion abnormalities as specified. The right ventricular systolic function is reduced as assessed by tricuspid annular plane systolic excursion (TAPSE) (TAPSE <1.6 cm). Moderate to severe valvular aortic stenosis. There is moderate mitral regurgitation. Right ventricular systolic pressure is elevated at 30-40mmHg. Compared directly to an echocardiogram performed on April 25, 2017, there does not appear to be any significant change. 2. Dual-chamber ICD placement - Dr. Hubert Le 3. carotid duplex exam - no ICA stenosis (significant atherosclerosis seen, however) Consultations: 1. cardiology - Ronald Gupta MD / Hubert Le MD 2. PT, OT Medication Reconciliation New Medications: Hydrocodone/Acetaminophen 5MG/325MG (Calvert 5MG/325MG) Tab 1 TABLET PO Q6H PRN for Pain, #15 TAB 0 Refills Carbamide Peroxide (Otic) (Eq Ear Wax Removal Aid) 6.5 % Nicole 5 DROPS OT BID for 3 Days, #1 BTL 0 Refills apply to left ear canal Finasteride (Finasteride) 5 Mg Tab 5 MG PO QAM, #30 TAB 5 Refills Insulin Aspart (Novolog Flexpen) 100 Units/Ml Inj 0 UNITS SC AC, #1 BOX 2 Refills "sliding scale" meal-time coverage: for fingerstick blood sugar of 150-200 give 4 units, 201-250 give 6 units, for 251-300 give 8 units, for over 300 give 10 units and call medical care manager. Ipratropium-Albuterol (Combivent Respimat) 1 Aer Aer 1 PUFFS INH QID, #1 INHALER 1 Refill Changed Medications: Insulin Glargine (Lantus) 100 Unit/Ml Inj 18 UNITS SC HS, #1 BTL 2 Refills (Changed from: 18-22 UNITS; Refills: ) Metoprolol Succ (Toprol Xl) (Toprol-Xl ) 100 Mg Tabcr 100 MG PO DAILY, #30 TAB 5 Refills (Changed from: BID; Refills: ) Nitroglycerin (Nitroglycerin Lingual) 0.4 Mg/[place] Spr 1 SPRAY PO [id number] PRN for chest pain, #1 BTL 1 Refill (Changed from: Refills : ) max 3 sprays/15 minutes Continued Medications: Ascorbic Acid (Ascorbic Acid) 500 Mg Tab 500 MG PO QAM, TAB Aspirin (Aspirin Ec) 81 Mg Tab 81 MG PO HS Atorvastatin (Lipitor) 80 Mg Tab 80 MG PO HS, TAB Calcium/Vitamin D (Os-Bethel 500 Plus D) Tab 1 TAB PO BID, TAB Chromium Picolinate (Chromium Picolinate) 400 Mcg Tab 400 MCG PO QAM Clopidogrel (Plavix) 75 Mg Tab 75 MG PO QAM, TAB Coenzyme Q10 (Ubidecarenone) (Coenzyme Q-10) 200 Mg Cap 200 MG PO QAM Docusate Sodium (Colace) 100 Mg Cap 100 MG PO HS, CAP Furosemide (Lasix) 20 Mg Tab 20 MG PO QAM, TAB Insulin Aspart (Novolog Flexpen) 100 Units/Ml Inj 1 DOSE SC SLIDING SCALE Lansoprazole (Prevacid) 30 Mg Capcr 30 MG PO QAM, CAP Levothyroxine Sodium (Levothyroxine Sodium) 25 Mcg Tab 25 MCG PO HS, TAB Meclizine Hcl (Meclizine Hcl) 25 Mg Tab 25 MG PO TID for Dizziness or Vertigo for 10 Days, #30 TAB Multiple Vitamins W/ Minerals (Centrum Silver 50+Men) 1 Tab Tab 1 TAB PO QAM Nitroglycerin (Nitro-Dur) 0.2 Mg/Hr Dis 1 PATCH TD QD, #30 PATCH 0 Refills apply in the morning, leave on for 12-14 hours, take off at night and leave off for 10-12 hours Potassium Gluconate (K-99) 595 Mg Cap 595 MG PO QAM take with furosemide Referrals At Discharge Follow up Referrals: Poker Machine Attendant Referral - Within 1 Week with Hubert Le MD Discharge Exam Physical Exam: General Appearance: no apparent distress ENT: pharynx normal Neck: no JVD Respiratory/Chest: no respiratory distress, no accessory muscle use, + rales (fine, "dry", bases only) Cardiovascular: regular rate, rhythm, no gallop, normal peripheral pulses, + systolic murmur (2/6 holosystolic RUSB) Abdomen / GI: normal bowel sounds, non tender, soft, no organomegaly Extremities: no pedal edema Neurologic/Psychiatric: alert, oriented x 3 Skin: + pertinent finding (pacer site on chest wall clean, no hematoma; resolving ecchymoses right distal leg from recent fall ) Hospital Course HISTORY OF PRESENT ILLNESS: 87yo male who was brought to the ED after having several falls with episodes of syncope and near syncope in the last 1.5 weeks. This seems to occur when pt is moving from lying/seating to standing. states he is losing consciousness at times with this. Pt admits to feeling lightheaded at times. No changes in his medications other than states he has been off of his finasteride. He has been having increased urination, especially at night even though he takes his lasix in the AM. "He is up all night to the bathroom!" Pt was started on HS O2 via NC but in the last few weeks has had SOB that has led to this being started with ambulation this coming Thursday once the O2 is delivered to the home. Pt has not had much chest pain since having nitro patch started this summer. He has in general felt very fatigued with all of the recent health issues. He does feel he is eating well and has a good appetite. He does have pain in his right leg related to his most recent fall and there is swelling related to where he hit his right leg with some pain in that area as well. Pt denies fever, abdominal pain, nausea, vomiting, diarrhea. HOSPITAL COURSE: The patient underwent a work-up for his pre-syncope/syncope including telemetry , echocardiogram, carotid duplex study, labs, etc. He did have mild orthostasis on orthostatic BP checks, echo demonstrated moderate-severe aortic stenosis, and telemetry showed a rather significant pause of nearly 5 seconds. His presenting symptoms may have been due to a combination of the above factors. However, in light of the sinus pause, it was felt that pacemaker placement was indicated. Thus, Dr. Hubert Le implanted an AICD/pacemaker (defibrillator placed due to low ejection fraction). Following his device implantation the patient remained stable. The other issue addressed while here was that of acute/chronic systolic CHF treated with IV lasix. At time of discharge he appeared euvolemic. Despite adequate diuresis the patient continued with mild, fine, dry rales on exam. Chest x-ray also continued to show interstitial infiltrates. The chest x-ray findings were like previous x-rays in the last few years which demonstrated interstitial basilar infiltrates. I am suspicious that the patient may be developing interstitial lung disease. Could consider pulmonary referral in the future for additional work-up if desired by the patient. Prior to discharge from [facility] would suggest a two-step oxygen test to assess for ambulatory oxygen needs. At time of discharge from [facility] his O2 sats were normal in room air at rest. All other medical problems remained stable while here. Dr. Le recommends restriction in the use of the left arm for 6 weeks following his device implantation. He will need follow-up with Dr. Le in about 1 week to check the device and the operative site. Total Time Spent: Greater than 30 minutes This includes examination of the patient, discharge planning, medication reconciliation, and communication with other providers. Discharge Instructions Please refer to the electronic Patient Visit Report (Discharge Instructions) for additional information. Follow-Up 1. medical care manager of [facility] within [address] Hubert Le, [facility] cardiology, within 1 week for pacer check 3[address] Dr. Ronald Gupta, [facility] cardiology, in 2-3 weeks Additional Copies To Kar Trinh; Joseph Felton M.D.; Hubert Le MD; Ronald Gupta M.D.
== END 2017-07-24 14:30 | DRG 226 ==
LOC: EDBD 13:10 → C.EDA 13:13 → C.MED 17:13 → ENRESERV 17:30 → C.2E 07-23 14:08
PROVIDERS: ADMIT Family Medicine; ATTEND Internal Medicine
PROC: 02HK3KZ Insertion of Defibrillator Lead into Right Ventricle, Percutaneous Approach (ICD-10-PCS; principal; 2017-07-23 12:30)
PROC: 0JH608Z Insertion of Defibrillator Generator into Chest Subcutaneous Tissue and Fascia, Open Approach (ICD-10-PCS; principal; 2017-07-23 12:30)
PROC: 02H63KZ Insertion of Defibrillator Lead into Right Atrium, Percutaneous Approach (ICD-10-PCS; principal; 2017-07-23 12:30)
DX: I44.2 Atrioventricular block, complete (principal); I50.23 Acute on chronic systolic (congestive) heart failure; I25.5 Ischemic cardiomyopathy; I13.0 Hypertensive heart and chronic kidney disease with heart failure and stage 1 through stage 4 chronic kidney disease, or unspecified chronic kidney disease; Z86.73 Personal history of transient ischemic attack (TIA), and cerebral infarction without residual deficits; N40.0 Benign prostatic hyperplasia without lower urinary tract symptoms; E11.42 Type 2 diabetes mellitus with diabetic polyneuropathy; I25.10 Atherosclerotic heart disease of native coronary artery without angina pectoris; Z83.3 Family history of diabetes mellitus; N18.3 Chronic kidney disease, stage 3 (moderate); I95.1 Orthostatic hypotension; E03.9 Hypothyroidism, unspecified; E87.6 Hypokalemia; Z95.1 Presence of aortocoronary bypass graft; I25.2 Old myocardial infarction; E78.5 Hyperlipidemia, unspecified; G47.33 Obstructive sleep apnea (adult) (pediatric); H61.20 Impacted cerumen, unspecified ear; I08.0 Rheumatic disorders of both mitral and aortic valves; Z87.891 Personal history of nicotine dependence; E86.0 Dehydration; I27.20 Pulmonary hypertension, unspecified; Z79.82 Long term (current) use of aspirin